=== PATIENT | female | born 1980 | race Caucasian/White ===

== ENCOUNTER 2016-10-21 12:52 | Inpatient (IN) | payer SELFPAY ==
[~2016-10-21] VITALS: Ht 185.4 cm; Wt 109.3 kg
[2016-10-21] VITALS (14 sets, daily range): BP systolic 102–145; BP diastolic 64–89
[2016-10-21] MEDS ORDERED: MONT10TA6 PO (13:16)
[2016-10-21] MEDS ORDERED: HYDR-2666 PO (13:16)
[2016-10-21] MEDS ORDERED: GUAI600T38 PO (13:16)
[2016-10-21] MEDS ORDERED: ALBU2.5V13 NEB (13:16)
[2016-10-21] MEDS ORDERED: [UNRECOGNIZED DRUG - CODE] IJ (13:16)
[2016-10-21] MEDS ORDERED: NICO1PAT21 TP (13:16)
[2016-10-21] MEDS ORDERED: BUDE0.5A NEB (13:16)
--- NOTE | 2016-10-21 13:36 | RAD ---
Portable chest, 10/21/2016: History: Recurrent spontaneous pneumothorax Comparison is made to an outside study from 10/20/2016. There is a large left-sided pneumothorax which appears to have increased slightly in size since yesterday's exam. Again noted is a small amount of left-sided pleural fluid. There is persistent partial atelectasis of the left upper lobe. There is a mild [id number] shift of the heart and mediastinum. Patient rotation may be contributing to this appearance. There is moderate persistent atelectasis/infiltrate in the right lower lobe. There is a suggestion of a small amount of pleural fluid in the posterior costophrenic angle on the right. The heart size and pulmonary vascularity are within normal limits. IMPRESSION: 1. Increasing large left pneumothorax with a possible component of tension. 2. Moderate unchanged partial atelectasis of the left upper lobe. 3. Moderate right lower lobe atelectasis/infiltrate. 4. Small pleural effusions, left greater than right. Note: The findings were called to the patient's nurse in the ICU at 1:33 PM on 10/21/2016.
[2016-10-21 13:53] LABS: BASO # 0.1 x10^3/uL (0.0-0.2); BASO % 1 % (0-3); EOS % 2 % (0-3); HEMATOCRIT 42.3 % (36.0-47.0); LYMPH # 1.3 x10^3/uL (1.0-4.8); LYMPH % 13 % (24-48); MEAN CORPUSCULAR HEMOGLOBIN 28 pg (25-35); MEAN CORPUSCULAR HGB CONC 33 g/dL (31-37); MEAN CORPUSCULAR VOLUME 86 fL (79-100); MONO % 7 % (0-9); NEUT % 78 % (31-73); PLATELET COUNT 201 x10^3/uL (140-400); RED BLOOD COUNT 4.94 x10^6/uL (3.50-5.40); RED CELL DISTRIBUTION WIDTH 13.2 % (11.5-14.5); WHITE BLOOD COUNT 10.2 x10^3/uL (4.0-11.0)
[2016-10-21 13:56] LABS: INR 1.1 (0.8-1.1); PROTHROMBIN TIME PATIENT 13.4 SEC (11.7-14.0)
[2016-10-21 14:09] LABS: CALCIUM 8.8 mg/dL (8.5-10.1); CREATININE 0.8 mg/dL (0.6-1.0); GFR 80.3; POTASSIUM 4.2 mmol/L (3.5-5.1)
[2016-10-21 14:14] LABS: ALBUMIN 2.8 g/dL (3.4-5.0); ALBUMIN/GLOBULIN RATIO 0.8 (1.0-1.7); TOTAL BILIRUBIN 0.4 mg/dL (0.2-1.0); TOTAL PROTEIN 6.5 g/dL (6.4-8.2)
--- NOTE | 2016-10-21 14:39 | PDOC2 ---
NEUROLOGY CONSULT Date of Admission Date of Admission Full Report Dictated DATE: 10/21/16 TIME: 14:37 Current Medications Current Medications Current Medications Budesonide (Pulmicort) 0.5 mg BID NEB ; Start 10/21/16 at 21:00 Guaifenesin (Mucinex) 600 mg BID PO ; Start 10/21/16 at 21:00 Acetaminophen/ Hydrocodone Bitart (Lortab 5/325) 1 tab PRN Q4HRS PRN PO PAIN; Start 10/21/16 at 14:30 Montelukast Sodium (Singulair) 10 mg HS PO ; Start 10/21/16 at 21:00 Nicotine (Nicoderm Cq 21mg) 1 patch DAILY TD ; Start 10/22/16 at 09:00 Albuterol Sulfate (Ventolin Neb Soln) 2.5 mg PRN Q2HRS PRN NEB SHORTNESS OF BREATH; Start 10/21/16 at 14:30 Hydromorphone HCl (Dilaudid) 1 mg PRN Q4HRS PRN IV PAIN; Start 10/21/16 at 14: 30 Active Scripts Active Reported NICODERM CQ 21mg (Nicotine) 1 Each Patch.td24 1 Patch TP DAILY Singulair Tablet (Montelukast Sodium) 10 Mg Tablet 10 Mg PO HS Hydromorphone 1 Mg/Ml Syringe (Hydromorphone Hcl) 1 Mg/1 Ml Disp.syrin 1 Mg IJ PRN Q2HRS PRN Hydrocodone-Apap 5-325 (Hydrocodone Bit/Acetaminophen) 1 Each Tablet 1 Tab PO PRN Q4HRS PRN Mucinex (Guaifenesin) 600 Mg Tablet.er 1 Tab PO BID Budesonide 0.5 Mg/2 Ml Ampul.neb 1 Vial NEB BID Albuterol Sulfate Conc Neb Soln (Albuterol Sulfate) 2.5 Mg/0.5 Ml Vial.neb 2.5 Mg NEB Allergies Allergies: Coded Allergies: Penicillins (Verified Allergy, Intermediate, 10/21/16) naproxen (Verified Allergy, Intermediate, 10/21/16) Labs Labs Laboratory Tests Test 10/21/16 13:35 White Blood Count 10.2x10^3/uL (4.0-11.0) Red Blood Count 4.94x10^6/uL (3.50-5.40) Hemoglobin 14.0g/dL (12.0-15.5) Hematocrit 42.3% (36.0-47.0) Mean Corpuscular Volume 86fL (79-100) Mean Corpuscular Hemoglobin 28pg (25-35) Mean Corpuscular Hemoglobin Concent 33g/dL (31-37) Red Cell Distribution Width 13.2% (11.5-14.5) Platelet Count 201x10^3/uL (140-400) Neutrophils (%) (Auto) 78% (31-73) Lymphocytes (%) (Auto) 13% (24-48) Monocytes (%) (Auto) 7% (0-9) Eosinophils (%) (Auto) 2% (0-3) Basophils (%) (Auto) 1% (0-3) Neutrophils # (Auto) 8.0x10^3uL (1.8-7.7) Lymphocytes # (Auto) 1.3x10^3/uL (1.0-4.8) Monocytes # (Auto) 0.7x10^3/uL (0.0-1.1) Eosinophils # (Auto) 0.2x10^3/uL (0.0-0.7) Basophils # (Auto) 0.1x10^3/uL (0.0-0.2) Prothrombin Time 13.4SEC (11.7-14.0) Prothromb Time International Ratio 1.1 (0.8-1.1) Activated Partial Thromboplast Time 32SEC (24-38) Sodium Level 142mmol/L (136-145) Potassium Level 4.2mmol/L (3.5-5.1) Chloride Level 105mmol/L (98-107) Carbon Dioxide Level 30mmol/L (21-32) Anion Gap 7 (6-14) Blood Urea Nitrogen 12mg/dL (7-20) Creatinine 0.8mg/dL (0.6-1.0) Estimated GFR (Cockcroft-Gault) 80.3 BUN/Creatinine Ratio 15 (6-20) Glucose Level 99mg/dL (70-99) Calcium Level 8.8mg/dL (8.5-10.1) Total Bilirubin 0.4mg/dL (0.2-1.0) Aspartate Amino Transf (AST/SGOT) 14U/L (15-37) Alanine Aminotransferase (ALT/SGPT) 25U/L (14-59) Alkaline Phosphatase 59U/L (46-116) Total Protein 6.5g/dL (6.4-8.2) Albumin 2.8g/dL (3.4-5.0) Albumin/Globulin Ratio 0.8 (1.0-1.7) Laboratory Tests Test 10/21/16 13:35 White Blood Count 10.2x10^3/uL (4.0-11.0) Red Blood Count 4.94x10^6/uL (3.50-5.40) Hemoglobin 14.0g/dL (12.0-15.5) Hematocrit 42.3% (36.0-47.0) Mean Corpuscular Volume 86fL (79-100) Mean Corpuscular Hemoglobin 28pg (25-35) Mean Corpuscular Hemoglobin Concent 33g/dL (31-37) Red Cell Distribution Width 13.2% (11.5-14.5) Platelet Count 201x10^3/uL (140-400) Neutrophils (%) (Auto) 78% (31-73) Lymphocytes (%) (Auto) 13% (24-48) Monocytes (%) (Auto) 7% (0-9) Eosinophils (%) (Auto) 2% (0-3) Basophils (%) (Auto) 1% (0-3) Neutrophils # (Auto) 8.0x10^3uL (1.8-7.7) Lymphocytes # (Auto) 1.3x10^3/uL (1.0-4.8) Monocytes # (Auto) 0.7x10^3/uL (0.0-1.1) Eosinophils # (Auto) 0.2x10^3/uL (0.0-0.7) Basophils # (Auto) 0.1x10^3/uL (0.0-0.2) Prothrombin Time 13.4SEC (11.7-14.0) Prothromb Time International Ratio 1.1 (0.8-1.1) Activated Partial Thromboplast Time 32SEC (24-38) Sodium Level 142mmol/L (136-145) Potassium Level 4.2mmol/L (3.5-5.1) Chloride Level 105mmol/L (98-107) Carbon Dioxide Level 30mmol/L (21-32) Anion Gap 7 (6-14) Blood Urea Nitrogen 12mg/dL (7-20) Creatinine 0.8mg/dL (0.6-1.0) Estimated GFR (Cockcroft-Gault) 80.3 BUN/Creatinine Ratio 15 (6-20) Glucose Level 99mg/dL (70-99) Calcium Level 8.8mg/dL (8.5-10.1) Total Bilirubin 0.4mg/dL (0.2-1.0) Aspartate Amino Transf (AST/SGOT) 14U/L (15-37) Alanine Aminotransferase (ALT/SGPT) 25U/L (14-59) Alkaline Phosphatase 59U/L (46-116) Total Protein 6.5g/dL (6.4-8.2) Albumin 2.8g/dL (3.4-5.0) Albumin/Globulin Ratio 0.8 (1.0-1.7) Assessment/Plan Assessment/Plan Sheela Rayo is a pleasant 36-year-old woman with a history of a seizure disorder. She had previously been seen by Dr. Sabillon with negative investigation. She had been placed on Keppra 500 mg twice per day. She reports she did have some breakthrough seizure but never contacted his office for dosage adjustment. She discontinued the medication sometime ago because she could not afford the cost. She plans on getting on Medicaid so we'll be able to afford the drug. I will restart Keppra 500 mg twice per day. If there are breakthrough seizure the dosage can be adjusted. She has a recurrent pneumothorax which may be under tension. This is being addressed either pulmonary physician. She has a number of psychiatric issues with posttraumatic stress disorder, attention deficit and hyperactivity disorder and generalized anxiety disorder. She will need to see a psychiatrist. TITA KIMBROUGH MD Oct 21, 2016 14:39
[2016-10-21] MEDS ORDERED: LIDOCAINE 1% / SOD BICARB 8.4% 20 ML VIAL. IJ ONE ×2 (14:47→15:30)
--- NOTE | 2016-10-21 15:14 | PDOC2 ---
Pulmonary Consultation Re: Pneumothorax HPI: Mrs Carbone, of no relation to myself; is a 36 yo female with a hx of asthma, and Tobacco dependency. She presented to OSH several days ago with complaints of dyspnea, and found to have a spontaneous left Pneumothorax. She denies fevers, chills, N, V, D, nor sick contacts. She notes that several days before her initial presentation she began having increased dyspnea, and cough. She was found to have a spontaneous pneumothorax, and chest tube was placed. She remained on suction for several days, and then CT was subsequently removed, which my understanding this was yesterday. She began having increased dyspnea, and on repeat imaging studies, she has recurrent Ptx. She was subsequently transferred to [facility] for further evaluation and care. She has a hx of tobacco dependency, and quit 5 days ago with her admission. hx of 1/2 ppd. She also has hx of seizure DO Problems: Medical History Seizure DO, Asthma, posttraumatic stress disorder, attention deficit and hyperactivity disorder and generalized anxiety disorder. Surgical History Non-contributory Medications Current Medications Budesonide (Pulmicort) 0.5 mg BID NEB ; Start 10/21/16 at 21:00 Guaifenesin (Mucinex) 600 mg BID PO ; Start 10/21/16 at 21:00 Acetaminophen/ Hydrocodone Bitart (Lortab 5/325) 1 tab PRN Q4HRS PRN PO PAIN; Start 10/21/16 at 14:30 Montelukast Sodium (Singulair) 10 mg HS PO ; Start 10/21/16 at 21:00 Nicotine (Nicoderm Cq 21mg) 1 patch DAILY TD ; Start 10/22/16 at 09:00 Albuterol Sulfate (Ventolin Neb Soln) 2.5 mg PRN Q2HRS PRN NEB SHORTNESS OF BREATH; Start 10/21/16 at 14:30 Hydromorphone HCl (Dilaudid) 1 mg PRN Q4HRS PRN IV PAIN; Start 10/21/16 at 14: 30 Lidocaine/Sodium Bicarbonate (Buffered Lidocaine 1%) 20 ml STK-MED ONCE IJ ; Start 10/21/16 at 14:47; Stop 10/21/16 at 14:48; Status DC Active Scripts Active Reported NICODERM CQ 21mg (Nicotine) 1 Each Patch.td24 1 Patch TP DAILY Singulair Tablet (Montelukast Sodium) 10 Mg Tablet 10 Mg PO HS Hydromorphone 1 Mg/Ml Syringe (Hydromorphone Hcl) 1 Mg/1 Ml Disp.syrin 1 Mg IJ PRN Q2HRS PRN Hydrocodone-Apap 5-325 (Hydrocodone Bit/Acetaminophen) 1 Each Tablet 1 Tab PO PRN Q4HRS PRN Mucinex (Guaifenesin) 600 Mg Tablet.er 1 Tab PO BID Budesonide 0.5 Mg/2 Ml Ampul.neb 1 Vial NEB BID Albuterol Sulfate Conc Neb Soln (Albuterol Sulfate) 2.5 Mg/0.5 Ml Vial.neb 2.5 Mg NEB Allergies Allergies Coded Allergies Type Severity Reaction Last Updated Verified Penicillins Allergy Intermediate 10/21/16 Yes naproxen Allergy Intermediate 10/21/16 Yes Social History , + tobacco hx 1/2 ppd, occassional ETOH, no recreational drugs Family History Non-contributory System Review Constitutional: Denies fever or chills. Eyes: Denies redness, irritation, erythema, drainage, or eye pain. HEENT: Denies nasal congestion or sore throat. Respiratory: Denies cough, shortness of breath, or difficulty breathing. Cardiovascular: Denies edema, or color change with feeding. GI: Denies abdominal pain, vomiting, bloody stools, diarrhea : Denies dysuria, normal amount of wet diapers, denies foul smelling urine. Musculoskeletal: Denies back pain or joint pain. Integument: Denies rash or skin lesions. Neurologic: Denies neurologic changes. Vital Signs Vital Signs Date Time Temp Pulse Resp B/P Pulse Ox O2 Delivery O2 Flow Rate FiO2 10/21/16 13:30 98.6 120 24 140/80 89 Nasal Cannula 3.0 98.6 Vital Signs Date Time Temp Pulse Resp B/P Pulse Ox O2 Delivery O2 Flow Rate FiO2 10/21/16 20:08 98.6 102 23 102/70 94 Nasal Cannula 4.0 98.6 Last Labs Laboratory Tests Test 10/21/16 13:35 White Blood Count 10.2x10^3/uL (4.0-11.0) Red Blood Count 4.94x10^6/uL (3.50-5.40) Hemoglobin 14.0g/dL (12.0-15.5) Hematocrit 42.3% (36.0-47.0) Mean Corpuscular Volume 86fL (79-100) Mean Corpuscular Hemoglobin 28pg (25-35) Mean Corpuscular Hemoglobin Concent 33g/dL (31-37) Red Cell Distribution Width 13.2% (11.5-14.5) Platelet Count 201x10^3/uL (140-400) Neutrophils (%) (Auto) 78% (31-73) Lymphocytes (%) (Auto) 13% (24-48) Monocytes (%) (Auto) 7% (0-9) Eosinophils (%) (Auto) 2% (0-3) Basophils (%) (Auto) 1% (0-3) Neutrophils # (Auto) 8.0x10^3uL (1.8-7.7) Lymphocytes # (Auto) 1.3x10^3/uL (1.0-4.8) Monocytes # (Auto) 0.7x10^3/uL (0.0-1.1) Eosinophils # (Auto) 0.2x10^3/uL (0.0-0.7) Basophils # (Auto) 0.1x10^3/uL (0.0-0.2) Prothrombin Time 13.4SEC (11.7-14.0) Prothromb Time International Ratio 1.1 (0.8-1.1) Activated Partial Thromboplast Time 32SEC (24-38) Sodium Level 142mmol/L (136-145) Potassium Level 4.2mmol/L (3.5-5.1) Chloride Level 105mmol/L (98-107) Carbon Dioxide Level 30mmol/L (21-32) Anion Gap 7 (6-14) Blood Urea Nitrogen 12mg/dL (7-20) Creatinine 0.8mg/dL (0.6-1.0) Estimated GFR (Cockcroft-Gault) 80.3 BUN/Creatinine Ratio 15 (6-20) Glucose Level 99mg/dL (70-99) Calcium Level 8.8mg/dL (8.5-10.1) Total Bilirubin 0.4mg/dL (0.2-1.0) Aspartate Amino Transf (AST/SGOT) 14U/L (15-37) Alanine Aminotransferase (ALT/SGPT) 25U/L (14-59) Alkaline Phosphatase 59U/L (46-116) Total Protein 6.5g/dL (6.4-8.2) Albumin 2.8g/dL (3.4-5.0) Albumin/Globulin Ratio 0.8 (1.0-1.7) Exam Comments Constitutional: Well developed, well nourished, no acute distress, non-toxic appearance. HENT: Normocephalic, atraumatic, bilateral external ears normal, oropharynx moist, no oral exudates, nose normal. Eyes: PERRLA, EOMI, conjunctiva normal, no discharge. Neck: Normal range of motion, no tenderness, supple, no stridor. Cardiovascular:Heart rate regular rhythm, no murmur Lungs & Thorax: Bilateral breath sounds clear to auscultation Abdomen: Bowel sounds normal, soft, no tenderness, no masses, no pulsatile masses. Skin: Warm, dry, no erythema, no rash. Extremities: No tenderness, no cyanosis, no clubbing, ROM intact, no edema. Neurologic: Alert and oriented X 3, normal motor function, normal sensory function, no focal deficits noted. Psychologic: Affect normal, judgement normal, mood normal. Chest X-rays 10/21/16 cxr : Comparison is made to the study of earlier in the day. A pigtail pleural drain has been placed on the left. The majority of the left pneumothorax has been evacuated. There is a small residual left apical pneumothorax. The midline shift has resolved with the heart now in normal position. There is moderate an ongoing atelectasis/infiltrate in the left upper lobe. There is moderate persistent right basilar atelectasis/infiltrate. Previously seen small pleural effusions are not clearly delineated on this AP portable exam. IMPRESSION: 1. Small residual left apical pneumothorax. 2. Moderate ongoing left upper lobe and right lower lobe atelectasis/infiltrate. Assessment 1. Acute Hypoxemic Respiratory Failure 2. Left Pneumothorax 3. Left Apical Infiltrate/Right LL infiltrate 4. Tobacco Dependency 5. Seizure DO 6. Anxiety, PTSD, Depression 7. Mild PCM Plan 1. Wean O2 as able 2. Left Chest tube placed by IR, continue Chest tube to suction - + AirLeak 3. Continue Bronchodilatory therapy 4. Pulmonary Infiltrate in QUITA, RLL - will continue Abx therapy 5. Likely residual Ptx, from when chest tube pulled rather than second ptx. 6. Seizure Tx per Neurology ARIELA CARBONE MD Oct 21, 2016 15:14
--- NOTE | 2016-10-21 15:28 | PDOC ---
IR PROGRESS NOTE Current Problem List Problem List Problems Medical Problems: (1) Emphysema of lung Status: Acute (2) Recurrent spontaneous pneumothorax Status: Acute Objective Objective Vital Signs Date Time Temp Pulse Resp B/P Pulse Ox O2 Delivery O2 Flow Rate FiO2 10/21/16 15:08 112 22 145/84 91 Nasal Cannula 5.0 Comment Review of Relevant I have reviewed the following items bry (where applicable) has been applied. Labs Laboratory Tests Test 10/21/16 13:35 White Blood Count 10.2x10^3/uL (4.0-11.0) Red Blood Count 4.94x10^6/uL (3.50-5.40) Hemoglobin 14.0g/dL (12.0-15.5) Hematocrit 42.3% (36.0-47.0) Mean Corpuscular Volume 86fL (79-100) Mean Corpuscular Hemoglobin 28pg (25-35) Mean Corpuscular Hemoglobin Concent 33g/dL (31-37) Red Cell Distribution Width 13.2% (11.5-14.5) Platelet Count 201x10^3/uL (140-400) Neutrophils (%) (Auto) 78% (31-73) Lymphocytes (%) (Auto) 13% (24-48) Monocytes (%) (Auto) 7% (0-9) Eosinophils (%) (Auto) 2% (0-3) Basophils (%) (Auto) 1% (0-3) Neutrophils # (Auto) 8.0x10^3uL (1.8-7.7) Lymphocytes # (Auto) 1.3x10^3/uL (1.0-4.8) Monocytes # (Auto) 0.7x10^3/uL (0.0-1.1) Eosinophils # (Auto) 0.2x10^3/uL (0.0-0.7) Basophils # (Auto) 0.1x10^3/uL (0.0-0.2) Prothrombin Time 13.4SEC (11.7-14.0) Prothromb Time International Ratio 1.1 (0.8-1.1) Activated Partial Thromboplast Time 32SEC (24-38) Sodium Level 142mmol/L (136-145) Potassium Level 4.2mmol/L (3.5-5.1) Chloride Level 105mmol/L (98-107) Carbon Dioxide Level 30mmol/L (21-32) Anion Gap 7 (6-14) Blood Urea Nitrogen 12mg/dL (7-20) Creatinine 0.8mg/dL (0.6-1.0) Estimated GFR (Cockcroft-Gault) 80.3 BUN/Creatinine Ratio 15 (6-20) Glucose Level 99mg/dL (70-99) Calcium Level 8.8mg/dL (8.5-10.1) Total Bilirubin 0.4mg/dL (0.2-1.0) Aspartate Amino Transf (AST/SGOT) 14U/L (15-37) Alanine Aminotransferase (ALT/SGPT) 25U/L (14-59) Alkaline Phosphatase 59U/L (46-116) Total Protein 6.5g/dL (6.4-8.2) Albumin 2.8g/dL (3.4-5.0) Albumin/Globulin Ratio 0.8 (1.0-1.7) Laboratory Tests Test 10/21/16 13:35 White Blood Count 10.2x10^3/uL (4.0-11.0) Red Blood Count 4.94x10^6/uL (3.50-5.40) Hemoglobin 14.0g/dL (12.0-15.5) Hematocrit 42.3% (36.0-47.0) Mean Corpuscular Volume 86fL (79-100) Mean Corpuscular Hemoglobin 28pg (25-35) Mean Corpuscular Hemoglobin Concent 33g/dL (31-37) Red Cell Distribution Width 13.2% (11.5-14.5) Platelet Count 201x10^3/uL (140-400) Neutrophils (%) (Auto) 78% (31-73) Lymphocytes (%) (Auto) 13% (24-48) Monocytes (%) (Auto) 7% (0-9) Eosinophils (%) (Auto) 2% (0-3) Basophils (%) (Auto) 1% (0-3) Neutrophils # (Auto) 8.0x10^3uL (1.8-7.7) Lymphocytes # (Auto) 1.3x10^3/uL (1.0-4.8) Monocytes # (Auto) 0.7x10^3/uL (0.0-1.1) Eosinophils # (Auto) 0.2x10^3/uL (0.0-0.7) Basophils # (Auto) 0.1x10^3/uL (0.0-0.2) Prothrombin Time 13.4SEC (11.7-14.0) Prothromb Time International Ratio 1.1 (0.8-1.1) Activated Partial Thromboplast Time 32SEC (24-38) Sodium Level 142mmol/L (136-145) Potassium Level 4.2mmol/L (3.5-5.1) Chloride Level 105mmol/L (98-107) Carbon Dioxide Level 30mmol/L (21-32) Anion Gap 7 (6-14) Blood Urea Nitrogen 12mg/dL (7-20) Creatinine 0.8mg/dL (0.6-1.0) Estimated GFR (Cockcroft-Gault) 80.3 BUN/Creatinine Ratio 15 (6-20) Glucose Level 99mg/dL (70-99) Calcium Level 8.8mg/dL (8.5-10.1) Total Bilirubin 0.4mg/dL (0.2-1.0) Aspartate Amino Transf (AST/SGOT) 14U/L (15-37) Alanine Aminotransferase (ALT/SGPT) 25U/L (14-59) Alkaline Phosphatase 59U/L (46-116) Total Protein 6.5g/dL (6.4-8.2) Albumin 2.8g/dL (3.4-5.0) Albumin/Globulin Ratio 0.8 (1.0-1.7) Medications Current Medications Budesonide (Pulmicort) 0.5 mg BID NEB ; Start 10/21/16 at 21:00 Guaifenesin (Mucinex) 600 mg BID PO ; Start 10/21/16 at 21:00 Acetaminophen/ Hydrocodone Bitart (Lortab 5/325) 1 tab PRN Q4HRS PRN PO PAIN; Start 10/21/16 at 14:30 Montelukast Sodium (Singulair) 10 mg HS PO ; Start 10/21/16 at 21:00 Nicotine (Nicoderm Cq 21mg) 1 patch DAILY TD ; Start 10/22/16 at 09:00 Albuterol Sulfate (Ventolin Neb Soln) 2.5 mg PRN Q2HRS PRN NEB SHORTNESS OF BREATH; Start 10/21/16 at 14:30 Hydromorphone HCl (Dilaudid) 1 mg PRN Q4HRS PRN IV PAIN; Start 10/21/16 at 14: 30 Lidocaine/Sodium Bicarbonate (Buffered Lidocaine 1%) 20 ml STK-MED ONCE IJ ; Start 10/21/16 at 14:47; Stop 10/21/16 at 14:48; Status DC Active Scripts Active Reported NICODERM CQ 21mg (Nicotine) 1 Each Patch.td24 1 Patch TP DAILY Singulair Tablet (Montelukast Sodium) 10 Mg Tablet 10 Mg PO HS Hydromorphone 1 Mg/Ml Syringe (Hydromorphone Hcl) 1 Mg/1 Ml Disp.syrin 1 Mg IJ PRN Q2HRS PRN Hydrocodone-Apap 5-325 (Hydrocodone Bit/Acetaminophen) 1 Each Tablet 1 Tab PO PRN Q4HRS PRN Mucinex (Guaifenesin) 600 Mg Tablet.er 1 Tab PO BID Budesonide 0.5 Mg/2 Ml Ampul.neb 1 Vial NEB BID Albuterol Sulfate Conc Neb Soln (Albuterol Sulfate) 2.5 Mg/0.5 Ml Vial.neb 2.5 Mg NEB Vitals/I & O Vital Sign - Last 24 Hours 10/21/16 15:08 Pulse 112 Resp 22 B/P 145/84 Pulse Ox 91 O2 Delivery Nasal Cannula O2 Flow Rate 5.0 Plan Plan 8 Fr pigtail thoracostomy placed for large left pneumothrax No complication Placed to -20 cm H20 AKOSUA SHAH MD Oct 21, 2016 15:28
--- NOTE | 2016-10-21 15:47 | RAD ---
CT-guided placement of left thoracostomy tube 10/21/2016 Indication: Left pneumothorax Comparison study: Chest radiograph earlier today Discussion: The risks and benefits of the procedure were discussed patient. Informed consent was obtained. A timeout procedure is performed. The left chest was prepped and draped using sterile barrier technique. CT imaging confirms large left pneumothorax. Once an appropriate site for skin. Then selective 1% lidocaine without epinephrine was administered to the skin and subcutaneous tissues for local anesthesia. Following this a 5 [place] sheathed U needle was advanced into the pleural space confirmed by aspiration of air. A guidewire was advanced into the pleural space over which an 8 [place] pigtail drain catheter was advanced into the pleural space. Air was aspirated to confirm placement. Imaging was performed to confirm placement. Catheter was secured in place. Sterile dressing including the resting dose was placed. Patient tolerate the procedure well and was returned to the ICU in stable condition. Anesthesia: Local anesthesia only Impression: Successful CT-guided placement of left thoracostomy tube.
[2016-10-21] MEDS: HYDROCODONE/APAP 5/325MG TABLET. PO PRN ×2 (15:55→20:36)
--- NOTE | 2016-10-21 16:34 | RAD ---
Portable chest, 10/21/2016: History: Follow-up pneumothorax after chest tube placement Comparison is made to the study of earlier in the day. A pigtail pleural drain has been placed on the left. The majority of the left pneumothorax has been evacuated. There is a small residual left apical pneumothorax. The midline shift has resolved with the heart now in normal position. There is moderate an ongoing atelectasis/infiltrate in the left upper lobe. There is moderate persistent right basilar atelectasis/infiltrate. Previously seen small pleural effusions are not clearly delineated on this AP portable exam. IMPRESSION: 1. Small residual left apical pneumothorax. 2. Moderate ongoing left upper lobe and right lower lobe atelectasis/infiltrate.
[2016-10-21] MEDS: HYDROMORPHONE 2 MG/ML VIAL. IV PRN ×2 (16:46→22:05)
[2016-10-21] MEDS: GUAIFENESIN ER 600 MG TABLET.ER PO SCH (20:36)
[2016-10-21] MEDS: MONTELUKAST SODIUM 10 MG TABLET. PO SCH (20:36)
[2016-10-21] MEDS: LEVOFLOXACIN 750 MG TABLET. PO SCH (22:02)
[2016-10-22] VITALS (21 sets, daily range): BP systolic 101–141; BP diastolic 58–93
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
[2016-10-22] MEDS: HYDROMORPHONE 2 MG/ML VIAL. IV PRN ×5 (01:47→20:56)
[2016-10-22 06:25] LABS: BASO # 0.2 x10^3/uL (0.0-0.2); BASO % 3 % (0-3); EOS % 4 % (0-3); HEMATOCRIT 41.7 % (36.0-47.0); HEMOGLOBIN 13.9 g/dL (12.0-15.5); LYMPH # 1.3 x10^3/uL (1.0-4.8); LYMPH % 16 % (24-48); MEAN CORPUSCULAR HEMOGLOBIN 28 pg (25-35); MEAN CORPUSCULAR HGB CONC 33 g/dL (31-37); MEAN CORPUSCULAR VOLUME 84 fL (79-100); MONO % 7 % (0-9); NEUT % 71 % (31-73); PLATELET COUNT 192 x10^3/uL (140-400); RED BLOOD COUNT 4.95 x10^6/uL (3.50-5.40); RED CELL DISTRIBUTION WIDTH 13.3 % (11.5-14.5); WHITE BLOOD COUNT 8.3 x10^3/uL (4.0-11.0)
[2016-10-22 07:13] LABS: ALBUMIN 2.5 g/dL (3.4-5.0); ALBUMIN/GLOBULIN RATIO 0.6 (1.0-1.7); CALCIUM 8.6 mg/dL (8.5-10.1); CREATININE 0.8 mg/dL (0.6-1.0); GFR 80.3; POTASSIUM 4.4 mmol/L (3.5-5.1); TOTAL BILIRUBIN 0.5 mg/dL (0.2-1.0); TOTAL PROTEIN 6.4 g/dL (6.4-8.2)
--- NOTE | 2016-10-22 07:32 | RAD ---
Portable chest, 10/22/2016: History: Respiratory distress Comparison is made to yesterday afternoon's exam. The pigtail pleural drain remains in place on the left. There is a small left pneumothorax which has increased slightly in size. There is moderate ongoing atelectasis/infiltrate in the left upper lobe and right base, unchanged. There is a small amount residual left-sided pleural fluid. The heart size and pulmonary vascularity are normal. IMPRESSION: 1. The small left pneumothorax appears to have increased slightly in size since yesterday's study. 2. Moderate ongoing atelectasis/infiltrate in the left upper lobe and right lung base.
[2016-10-22] MEDS: HYDROCODONE/APAP 5/325MG TABLET. PO PRN ×2 (08:14→18:35)
[2016-10-22] MEDS: GUAIFENESIN ER 600 MG TABLET.ER PO SCH ×2 (08:46→21:16)
[2016-10-22] MEDS: NICOTINE 21MG PATCH. TD SCH (09:00)
[2016-10-22] MEDS: BUDESONIDE 0.5 MG/2 ML NEBU NEB SCH ×2 (09:35→19:18)
--- NOTE | 2016-10-22 10:37 | RAD ---
Indication: Recurrent pneumothorax. Axial imaging through the chest was performed without intravenous contrast. Comparison is made with the CT chest from 1 day earlier. The small caliber chest tube on the left remains in place with the pigtail identified in the anterior left hemithorax. There has been significant reexpansion of the left lung when compared with yesterday's exam. There continues to be a small left pneumothorax. Airspace infiltrate in the left upper lobe posteriorly is noted. There are areas of consolidation and atelectasis in the left upper lobe as well as the left base. Right basilar atelectasis is also seen. There are bilateral pleural effusions which appear to layer dependently. No definite axillary lymphadenopathy is seen. No pericardial effusion is seen. No mediastinal or hilar lymphadenopathy is detected. Impression: Significant decrease in size of left pneumothorax when compared with exam one day earlier. There continues to be a small pneumothorax on the left. The zones of atelectasis in the left upper and left lower lobe persist. There are continued bilateral pleural effusions.
--- NOTE | 2016-10-22 11:07 | HP ---
ADMIT DATE: 10/22/2016 HISTORY OF PRESENT ILLNESS: The patient is a 36-year-old female patient, who was transferred from where she was admitted with a complaint of shortness of breath that started several days before admission. She was seen in the Emergency Room and was found to have large left-sided pneumothorax, for which a chest tube placed and was connected to Pleur-evac. After the lung had completely expanded, her chest tube was removed without any problem; however, repeat chest x-ray immediate did not show any pneumothorax. On the second day, she complained of shortness of breath and we did repeat another chest x-ray, which showed that she has recurrent pneumothorax, and therefore decision was made to transfer her to [facility] for placement of another chest tube and to consult the cardiothoracic surgeon for possible pleurodesis. PAST MEDICAL HISTORY: Significant for bronchial asthma with possible chronic bronchitis/COPD. She apparently is known to have epilepsy. Her last seizure was about 2 weeks prior to admission to [facility] and one about 6 months before that. She is known to have ADHD, posttraumatic stress disorder, as well as anxiety. She apparently was on Keppra that she cannot afford and she quit taking it on her own about a year ago and never contacted Dr. Peters, her neurologist. PAST SURGICAL HISTORY: Significant for cholecystectomy, D and C, and tubal ligation, and most recently chest tube placement twice. ALLERGIES: SHE IS ALLERGIC TO PENICILLIN AND IBUPROFEN. MEDICATIONS: She was transferred to this facility to continue on the following medications: Albuterol sulfate via nebulizer every ____ hours, Pulmicort 0.5 mg in 2 mL twice a day, guaifenesin 600 mg twice a day, hydrocodone/APAP 5/325 one tablet every 4 hours as needed, hydromorphone 1 mg intravenously every ____ hours as needed, Singulair 10 mg once a day, NicoDerm CQ 21 mg topical transdermal patch once a day. She was also on Keppra 500 mg twice a day, levothyroxine sodium 50 mcg once a day, Vyvanse 20 mg daily, and prazosin 1 mg at bedtime, and Pristiq 100 mg once a day. FAMILY HISTORY: She has 6 brothers and 2 sisters. Her oldest brother because of diabetic complication. Her sister has epilepsy. SOCIAL HISTORY: She is . She is 4, para 5. The oldest son has diabetes, on insulin. She has 3 daughters, relatively healthy. One son at the age of 19 by an overdose. She smokes 6 cigarettes a day. She does not drink alcohol. She works 2 jobs. REVIEW OF SYSTEMS: The patient denied any blurring of vision, cataract, glaucoma or macular degeneration. Denied any earache, tinnitus, or sensorineural deafness. Denied any nosebleeds, stuffy nose, or postnasal drip. Denied any sore throat, sore tongue, toothache, hoarseness of voice, or difficulty swallowing. Denied any nausea, vomiting, diarrhea, or constipation. She denied any hematemesis, melena, or hematochezia. Denied any dysuria, frequency, or hematuria. Denied any chills, rigors, or fever. PHYSICAL EXAMINATION: GENERAL: When I saw her today, she looked well and was clearly in no apparent respiratory distress. VITAL SIGNS: Her heart rate was 94, blood pressure 141/93, temperature was 98.5, respiratory rate was 16, and oxygen saturation was 92% on 3 liters of oxygen. HEAD, EYES, NOSE, THROAT: Normocephalic, atraumatic. NECK: Supple. HEART: Showed normal first and second heart sounds. No gallop, rub, or murmur. CHEST: Shows central trachea, equal bilateral chest expansion, air entry, vesicular sounds, with bilateral scattered rhonchi. She has chest tube suction on the left side. ABDOMEN: Distended, soft, nontender. No guarding or rigidity. No organomegaly. Hernial orifices intact. Bowel sounds normal. NEUROLOGIC: She was awake, alert, responding appropriately. Cranial nerves intact. EXTREMITIES: She moves extremities without difficulty. She ambulates without assistance or assistive devices. LABORATORY DATA: Showed that her white cell count is 8300, hemoglobin 14, hematocrit 42, MCV 84, and platelet count of 192,000, with normal manual differential. Her chemistry showed a serum sodium 139, potassium 4.4, chloride 103, bicarbonate 29, anion gap 7, BUN 12, creatinine 0.8, estimated GFR was 80 mL per minute. Her glucose was 94, calcium was 8.6. Total bilirubin, AST, ALT, alkaline phosphatase were normal. Total protein was 6.4, albumin 2.5. Her prothrombin time was 13.4, INR 1.1, aPTT was 32. ASSESSMENT AND PLAN: She apparently had had a chest tube placed by interventional radiologist successfully. She was seen in consultation by the solutions developer as well as the neurologist. I did consult also the cardiothoracic surgeon to see whether she is a candidate for pleurodesis given that she has multiple emphysematous bullae and has had recurrent pneumothorax. We will continue obviously with the chest tube. Continue with all her medications including bronchodilators. Follow her labs closely and we will start obviously physical and occupational therapy. NICHOLAS DEJESUS MD DR: KIN/analy JOB#: [id number] / [id number]
--- NOTE | 2016-10-22 11:35 | PDOC ---
PULMONARY PROGRESS NOTES Subjective no soa Vitals Vital Signs Date Time Temp Pulse Resp B/P Pulse Ox O2 Delivery O2 Flow Rate FiO2 10/22/16 09:35 92 Nasal Cannula 3.0 10/22/16 09:04 16 10/22/16 07:00 94 141/93 10/22/16 05:20 98.5 98.5 General: Alert, No acute distress Lungs: Clear Cardiovascular: S1 Abdomen: Soft Neuro Exam: Alert Extremities: No Edema Skin: Warm Labs Laboratory Tests Test 10/21/16 13:35 10/22/16 05:17 White Blood Count 10.2x10^3/uL (4.0-11.0) 8.3x10^3/uL (4.0-11.0) Red Blood Count 4.94x10^6/uL (3.50-5.40) 4.95x10^6/uL (3.50-5.40) Hemoglobin 14.0g/dL (12.0-15.5) 13.9g/dL (12.0-15.5) Hematocrit 42.3% (36.0-47.0) 41.7% (36.0-47.0) Mean Corpuscular Volume 86fL (79-100) 84fL (79-100) Mean Corpuscular Hemoglobin 28pg (25-35) 28pg (25-35) Mean Corpuscular Hemoglobin Concent 33g/dL (31-37) 33g/dL (31-37) Red Cell Distribution Width 13.2% (11.5-14.5) 13.3% (11.5-14.5) Platelet Count 201x10^3/uL (140-400) 192x10^3/uL (140-400) Neutrophils (%) (Auto) 78% (31-73) 71% (31-73) Lymphocytes (%) (Auto) 13% (24-48) 16% (24-48) Monocytes (%) (Auto) 7% (0-9) 7% (0-9) Eosinophils (%) (Auto) 2% (0-3) 4% (0-3) Basophils (%) (Auto) 1% (0-3) 3% (0-3) Neutrophils # (Auto) 8.0x10^3uL (1.8-7.7) 5.9x10^3uL (1.8-7.7) Lymphocytes # (Auto) 1.3x10^3/uL (1.0-4.8) 1.3x10^3/uL (1.0-4.8) Monocytes # (Auto) 0.7x10^3/uL (0.0-1.1) 0.5x10^3/uL (0.0-1.1) Eosinophils # (Auto) 0.2x10^3/uL (0.0-0.7) 0.4x10^3/uL (0.0-0.7) Basophils # (Auto) 0.1x10^3/uL (0.0-0.2) 0.2x10^3/uL (0.0-0.2) Prothrombin Time 13.4SEC (11.7-14.0) Prothromb Time International Ratio 1.1 (0.8-1.1) Activated Partial Thromboplast Time 32SEC (24-38) Sodium Level 142mmol/L (136-145) 139mmol/L (136-145) Potassium Level 4.2mmol/L (3.5-5.1) 4.4mmol/L (3.5-5.1) Chloride Level 105mmol/L (98-107) 103mmol/L (98-107) Carbon Dioxide Level 30mmol/L (21-32) 29mmol/L (21-32) Anion Gap 7 (6-14) 7 (6-14) Blood Urea Nitrogen 12mg/dL (7-20) 12mg/dL (7-20) Creatinine 0.8mg/dL (0.6-1.0) 0.8mg/dL (0.6-1.0) Estimated GFR (Cockcroft-Gault) 80.3 80.3 BUN/Creatinine Ratio 15 (6-20) 15 (6-20) Glucose Level 99mg/dL (70-99) 94mg/dL (70-99) Calcium Level 8.8mg/dL (8.5-10.1) 8.6mg/dL (8.5-10.1) Total Bilirubin 0.4mg/dL (0.2-1.0) 0.5mg/dL (0.2-1.0) Aspartate Amino Transf (AST/SGOT) 14U/L (15-37) 18U/L (15-37) Alanine Aminotransferase (ALT/SGPT) 25U/L (14-59) 33U/L (14-59) Alkaline Phosphatase 59U/L (46-116) 64U/L (46-116) Total Protein 6.5g/dL (6.4-8.2) 6.4g/dL (6.4-8.2) Albumin 2.8g/dL (3.4-5.0) 2.5g/dL (3.4-5.0) Albumin/Globulin Ratio 0.8 (1.0-1.7) 0.6 (1.0-1.7) Laboratory Tests Test 10/21/16 13:35 10/22/16 05:17 White Blood Count 10.2x10^3/uL (4.0-11.0) 8.3x10^3/uL (4.0-11.0) Red Blood Count 4.94x10^6/uL (3.50-5.40) 4.95x10^6/uL (3.50-5.40) Hemoglobin 14.0g/dL (12.0-15.5) 13.9g/dL (12.0-15.5) Hematocrit 42.3% (36.0-47.0) 41.7% (36.0-47.0) Mean Corpuscular Volume 86fL (79-100) 84fL (79-100) Mean Corpuscular Hemoglobin 28pg (25-35) 28pg (25-35) Mean Corpuscular Hemoglobin Concent 33g/dL (31-37) 33g/dL (31-37) Red Cell Distribution Width 13.2% (11.5-14.5) 13.3% (11.5-14.5) Platelet Count 201x10^3/uL (140-400) 192x10^3/uL (140-400) Neutrophils (%) (Auto) 78% (31-73) 71% (31-73) Lymphocytes (%) (Auto) 13% (24-48) 16% (24-48) Monocytes (%) (Auto) 7% (0-9) 7% (0-9) Eosinophils (%) (Auto) 2% (0-3) 4% (0-3) Basophils (%) (Auto) 1% (0-3) 3% (0-3) Neutrophils # (Auto) 8.0x10^3uL (1.8-7.7) 5.9x10^3uL (1.8-7.7) Lymphocytes # (Auto) 1.3x10^3/uL (1.0-4.8) 1.3x10^3/uL (1.0-4.8) Monocytes # (Auto) 0.7x10^3/uL (0.0-1.1) 0.5x10^3/uL (0.0-1.1) Eosinophils # (Auto) 0.2x10^3/uL (0.0-0.7) 0.4x10^3/uL (0.0-0.7) Basophils # (Auto) 0.1x10^3/uL (0.0-0.2) 0.2x10^3/uL (0.0-0.2) Prothrombin Time 13.4SEC (11.7-14.0) Prothromb Time International Ratio 1.1 (0.8-1.1) Activated Partial Thromboplast Time 32SEC (24-38) Sodium Level 142mmol/L (136-145) 139mmol/L (136-145) Potassium Level 4.2mmol/L (3.5-5.1) 4.4mmol/L (3.5-5.1) Chloride Level 105mmol/L (98-107) 103mmol/L (98-107) Carbon Dioxide Level 30mmol/L (21-32) 29mmol/L (21-32) Anion Gap 7 (6-14) 7 (6-14) Blood Urea Nitrogen 12mg/dL (7-20) 12mg/dL (7-20) Creatinine 0.8mg/dL (0.6-1.0) 0.8mg/dL (0.6-1.0) Estimated GFR (Cockcroft-Gault) 80.3 80.3 BUN/Creatinine Ratio 15 (6-20) 15 (6-20) Glucose Level 99mg/dL (70-99) 94mg/dL (70-99) Calcium Level 8.8mg/dL (8.5-10.1) 8.6mg/dL (8.5-10.1) Total Bilirubin 0.4mg/dL (0.2-1.0) 0.5mg/dL (0.2-1.0) Aspartate Amino Transf (AST/SGOT) 14U/L (15-37) 18U/L (15-37) Alanine Aminotransferase (ALT/SGPT) 25U/L (14-59) 33U/L (14-59) Alkaline Phosphatase 59U/L (46-116) 64U/L (46-116) Total Protein 6.5g/dL (6.4-8.2) 6.4g/dL (6.4-8.2) Albumin 2.8g/dL (3.4-5.0) 2.5g/dL (3.4-5.0) Albumin/Globulin Ratio 0.8 (1.0-1.7) 0.6 (1.0-1.7) Medications Active Scripts Medications Dose Route/Sig Days Date Category NICODERM CQ 21mg (Nicotine) 1 Each Patch.td24 1 Patch TP DAILY 10/21/16 Reported Singulair Tablet (Montelukast Sodium) 10 Mg Tablet 10 Mg PO HS 10/21/16 Reported Hydromorphone 1 Mg/Ml Syringe (Hydromorphone Hcl) 1 Mg/1 Ml Disp.syrin 1 Mg IJ PRN Q2HRS PRN 10/21/16 Reported Hydrocodone-Apap 5-325 (Hydrocodone Bit/Acetaminophen) 1 Each Tablet 1 Tab PO PRN Q4HRS PRN 10/21/16 Reported Mucinex (Guaifenesin) 600 Mg Tablet.er 1 Tab PO BID 10/21/16 Reported Budesonide 0.5 Mg/2 Ml Ampul.neb 1 Vial NEB BID 10/21/16 Reported Albuterol Sulfate Conc Neb Soln (Albuterol Sulfate) 2.5 Mg/0.5 Ml Vial.neb 2.5 Mg NEB 10/21/16 Reported Impression . 1. Acute Hypoxemic Respiratory Failure due to PTX 2. Left Pneumothorax 3. Left Apical Infiltrate/Right LL infiltrate 4. Tobacco Dependency 5. Seizure DO 6. Anxiety, PTSD, Depression 7. Mild PCM Plan . 1. d/w Dr Mcghee. She has significant blebs upper lobes and is at risk for recurrent PTX. best option is Left VATS/ bullectomy/ mechanical abrasion. 2. Left Chest tube to suction - + AirLeak 3. Continue Bronchodilatory therapy 4. Pulmonary Infiltrate in QUITA, RLL - will continue Abx therapy 5. Likely residual Ptx, from when chest tube pulled rather than second ptx. 6. Seizure Tx per Neurology RIN MARTEL MD Oct 22, 2016 11:35
--- NOTE | 2016-10-22 12:01 | PDOC ---
SURGICAL PROGRESS NOTE Subjective Transferred from [facility] pneumo, IR placed CT last night feeling better, tired Vital Signs Vital Signs Date Time Temp Pulse Resp B/P Pulse Ox O2 Delivery O2 Flow Rate FiO2 10/22/16 09:35 92 Nasal Cannula 3.0 10/22/16 09:04 16 10/22/16 07:00 94 141/93 10/22/16 05:20 98.5 98.5 I&O Intake and Output 10/22/16 07:00 Intake Total 1650 ml Output Total 2610 ml Balance -960 ml Intake Oral 1650 ml Output Urine Total 2600 ml Chest Tube Drainage Total 10 ml General: Alert, Oriented X3, Cooperative, No acute distress Lungs: Other (CT in place) Labs Laboratory Tests Test 10/21/16 13:35 10/22/16 05:17 White Blood Count 10.2x10^3/uL (4.0-11.0) 8.3x10^3/uL (4.0-11.0) Red Blood Count 4.94x10^6/uL (3.50-5.40) 4.95x10^6/uL (3.50-5.40) Hemoglobin 14.0g/dL (12.0-15.5) 13.9g/dL (12.0-15.5) Hematocrit 42.3% (36.0-47.0) 41.7% (36.0-47.0) Mean Corpuscular Volume 86fL (79-100) 84fL (79-100) Mean Corpuscular Hemoglobin 28pg (25-35) 28pg (25-35) Mean Corpuscular Hemoglobin Concent 33g/dL (31-37) 33g/dL (31-37) Red Cell Distribution Width 13.2% (11.5-14.5) 13.3% (11.5-14.5) Platelet Count 201x10^3/uL (140-400) 192x10^3/uL (140-400) Neutrophils (%) (Auto) 78% (31-73) 71% (31-73) Lymphocytes (%) (Auto) 13% (24-48) 16% (24-48) Monocytes (%) (Auto) 7% (0-9) 7% (0-9) Eosinophils (%) (Auto) 2% (0-3) 4% (0-3) Basophils (%) (Auto) 1% (0-3) 3% (0-3) Neutrophils # (Auto) 8.0x10^3uL (1.8-7.7) 5.9x10^3uL (1.8-7.7) Lymphocytes # (Auto) 1.3x10^3/uL (1.0-4.8) 1.3x10^3/uL (1.0-4.8) Monocytes # (Auto) 0.7x10^3/uL (0.0-1.1) 0.5x10^3/uL (0.0-1.1) Eosinophils # (Auto) 0.2x10^3/uL (0.0-0.7) 0.4x10^3/uL (0.0-0.7) Basophils # (Auto) 0.1x10^3/uL (0.0-0.2) 0.2x10^3/uL (0.0-0.2) Prothrombin Time 13.4SEC (11.7-14.0) Prothromb Time International Ratio 1.1 (0.8-1.1) Activated Partial Thromboplast Time 32SEC (24-38) Sodium Level 142mmol/L (136-145) 139mmol/L (136-145) Potassium Level 4.2mmol/L (3.5-5.1) 4.4mmol/L (3.5-5.1) Chloride Level 105mmol/L (98-107) 103mmol/L (98-107) Carbon Dioxide Level 30mmol/L (21-32) 29mmol/L (21-32) Anion Gap 7 (6-14) 7 (6-14) Blood Urea Nitrogen 12mg/dL (7-20) 12mg/dL (7-20) Creatinine 0.8mg/dL (0.6-1.0) 0.8mg/dL (0.6-1.0) Estimated GFR (Cockcroft-Gault) 80.3 80.3 BUN/Creatinine Ratio 15 (6-20) 15 (6-20) Glucose Level 99mg/dL (70-99) 94mg/dL (70-99) Calcium Level 8.8mg/dL (8.5-10.1) 8.6mg/dL (8.5-10.1) Total Bilirubin 0.4mg/dL (0.2-1.0) 0.5mg/dL (0.2-1.0) Aspartate Amino Transf (AST/SGOT) 14U/L (15-37) 18U/L (15-37) Alanine Aminotransferase (ALT/SGPT) 25U/L (14-59) 33U/L (14-59) Alkaline Phosphatase 59U/L (46-116) 64U/L (46-116) Total Protein 6.5g/dL (6.4-8.2) 6.4g/dL (6.4-8.2) Albumin 2.8g/dL (3.4-5.0) 2.5g/dL (3.4-5.0) Albumin/Globulin Ratio 0.8 (1.0-1.7) 0.6 (1.0-1.7) Laboratory Tests Test 10/21/16 13:35 10/22/16 05:17 White Blood Count 10.2x10^3/uL (4.0-11.0) 8.3x10^3/uL (4.0-11.0) Red Blood Count 4.94x10^6/uL (3.50-5.40) 4.95x10^6/uL (3.50-5.40) Hemoglobin 14.0g/dL (12.0-15.5) 13.9g/dL (12.0-15.5) Hematocrit 42.3% (36.0-47.0) 41.7% (36.0-47.0) Mean Corpuscular Volume 86fL (79-100) 84fL (79-100) Mean Corpuscular Hemoglobin 28pg (25-35) 28pg (25-35) Mean Corpuscular Hemoglobin Concent 33g/dL (31-37) 33g/dL (31-37) Red Cell Distribution Width 13.2% (11.5-14.5) 13.3% (11.5-14.5) Platelet Count 201x10^3/uL (140-400) 192x10^3/uL (140-400) Neutrophils (%) (Auto) 78% (31-73) 71% (31-73) Lymphocytes (%) (Auto) 13% (24-48) 16% (24-48) Monocytes (%) (Auto) 7% (0-9) 7% (0-9) Eosinophils (%) (Auto) 2% (0-3) 4% (0-3) Basophils (%) (Auto) 1% (0-3) 3% (0-3) Neutrophils # (Auto) 8.0x10^3uL (1.8-7.7) 5.9x10^3uL (1.8-7.7) Lymphocytes # (Auto) 1.3x10^3/uL (1.0-4.8) 1.3x10^3/uL (1.0-4.8) Monocytes # (Auto) 0.7x10^3/uL (0.0-1.1) 0.5x10^3/uL (0.0-1.1) Eosinophils # (Auto) 0.2x10^3/uL (0.0-0.7) 0.4x10^3/uL (0.0-0.7) Basophils # (Auto) 0.1x10^3/uL (0.0-0.2) 0.2x10^3/uL (0.0-0.2) Prothrombin Time 13.4SEC (11.7-14.0) Prothromb Time International Ratio 1.1 (0.8-1.1) Activated Partial Thromboplast Time 32SEC (24-38) Sodium Level 142mmol/L (136-145) 139mmol/L (136-145) Potassium Level 4.2mmol/L (3.5-5.1) 4.4mmol/L (3.5-5.1) Chloride Level 105mmol/L (98-107) 103mmol/L (98-107) Carbon Dioxide Level 30mmol/L (21-32) 29mmol/L (21-32) Anion Gap 7 (6-14) 7 (6-14) Blood Urea Nitrogen 12mg/dL (7-20) 12mg/dL (7-20) Creatinine 0.8mg/dL (0.6-1.0) 0.8mg/dL (0.6-1.0) Estimated GFR (Cockcroft-Gault) 80.3 80.3 BUN/Creatinine Ratio 15 (6-20) 15 (6-20) Glucose Level 99mg/dL (70-99) 94mg/dL (70-99) Calcium Level 8.8mg/dL (8.5-10.1) 8.6mg/dL (8.5-10.1) Total Bilirubin 0.4mg/dL (0.2-1.0) 0.5mg/dL (0.2-1.0) Aspartate Amino Transf (AST/SGOT) 14U/L (15-37) 18U/L (15-37) Alanine Aminotransferase (ALT/SGPT) 25U/L (14-59) 33U/L (14-59) Alkaline Phosphatase 59U/L (46-116) 64U/L (46-116) Total Protein 6.5g/dL (6.4-8.2) 6.4g/dL (6.4-8.2) Albumin 2.8g/dL (3.4-5.0) 2.5g/dL (3.4-5.0) Albumin/Globulin Ratio 0.8 (1.0-1.7) 0.6 (1.0-1.7) Problem List Problems Medical Problems: (1) Emphysema of lung Status: Acute (2) Recurrent spontaneous pneumothorax Status: Acute Assessment/Plan IR placed CT, pulmonary following no gen surg recs Problems: PHILLIP DAHL APRN Oct 22, 2016 12:01
--- NOTE | 2016-10-22 13:53 | PDOC ---
PROGRESS NOTES Assessment Assessment IMPRESSION: Seizure Pneumothorax. Bilateral pleural effusion. Smoking, quit 6 days ago ADHD Anxiety RECOMMENDATIONS/PLAN: EEG May resume Keppra after EEG Treat medical diseases. PAST MEDICAL AND SURGICAL HISTORY: Please see H&P ALLERGY: PCN Naproxen MEDICATIONS: Refer to MAR REVIEW OF SYSTEMS: Constitutional: No cachexia. Head: No recent traumatic brain or head injury. Skin: No edema, or rash. Ear: No infection, tinnitus. Eyes: No vision loss, or diplopia. Nose: No bleeding or purulent discharges. Hearing: No hearing decrease. Neck: No recent injury. Breast: No history of cancer, masses, or discharges. Cardiac: No MD, arrhythmia Pulmonary: Smoking GI: No GI Ulcer, GI bleeding Urinary/genital: UTI. Endocrine: No cousin face, craniofacial dysmorphism, polydactyly. Skeletomuscular: No muscular atrophy, deformity. Neurological: see HP. Psychiatric: Denies drug use/abuse. Otherwise, not [id number] review of systems. PHYSICAL EXAMINATION: General appearance in subacute distress. HEENT: Normocephalic and nontraumatic. Eyes, nose, ears, and throat are unremarkable. Hearing decrease. Neck is supple. No lymphadenopathy. No bruits are heard over the carotid artery. No Crepitus. Cardiovascular: S1, S2, regular rate and rhythm. Pulmonary: decreased to auscultation bilaterally. Abdomen: Bowel sounds are positive. Abdomen is soft, nontender, and nondistended. Extremities: No rash, lesions, or edema. No restriction of range of motion NEUROLOGICAL EXAMINATION: Alert. Oriented to time, place and person. PERRL. EOMI. CN: no focal findings. Muscle tone: within normal. Muscle strength: 5- DTR: 2 Plantar reflex: Flexor response bilaterally Gait: not examined in bed. Sensory exam: no abnormal findings. No cerebellar signs elicited. F-T-N test accurate. Objective Objective Vital Signs Date Time Temp Pulse Resp B/P Pulse Ox O2 Delivery O2 Flow Rate FiO2 10/22/16 09:35 92 Nasal Cannula 3.0 10/22/16 09:04 16 10/22/16 07:00 94 141/93 10/22/16 05:20 98.5 98.5 Intake and Output 10/22/16 07:00 Intake Total 1650 ml Output Total 2610 ml Balance -960 ml Intake Oral 1650 ml Output Urine Total 2600 ml Chest Tube Drainage Total 10 ml Vitals Signs Vitals VS - Last 72 Hours, by Label Date Time Temp Pulse Resp B/P Pulse Ox O2 Delivery O2 Flow Rate FiO2 10/22/16 09:35 92 Nasal Cannula 3.0 10/22/16 09:04 16 Nasal Cannula 3.0 10/22/16 08:14 16 92 Nasal Cannula 5.0 10/22/16 08:00 Nasal Cannula 4.0 10/22/16 07:00 94 141/93 94 Nasal Cannula 5.0 10/22/16 06:17 101 126/75 92 Nasal Cannula 4.0 10/22/16 06:12 93 Nasal Cannula 4.0 10/22/16 05:31 93 Nasal Cannula 4.0 10/22/16 05:20 98.5 93 121/80 93 Nasal Cannula 4.0 98.5 10/22/16 04:17 90 20 127/80 95 NonRebreather Mask 4.0 10/22/16 04:09 Nasal Cannula 4.0 10/22/16 03:30 93 20 127/81 96 NonRebreather Mask 4.0 10/22/16 02:15 98.5 93 20 139/91 94 NonRebreather Mask 4.0 98.5 10/22/16 01:47 97 Nasal Cannula 4.0 10/22/16 01:16 98.6 93 20 128/76 97 NonRebreather Mask 4.0 98.6 10/22/16 00:14 98.5 91 20 119/73 95 Nasal Cannula 4.0 98.5 10/22/16 00:11 Nasal Cannula 4.0 10/21/16 23:09 98.5 96 22 125/72 95 NonRebreather Mask 4.0 98.5 10/21/16 22:24 99 22 139/79 95 NonRebreather Mask 4.0 10/21/16 22:05 94 Nasal Cannula 4.0 10/21/16 21:53 94 Nasal Cannula 4.0 10/21/16 21:13 103 22 111/77 94 NonRebreather Mask 4.0 10/21/16 20:36 94 Nasal Cannula 4.0 10/21/16 20:08 98.6 102 23 102/70 94 Nasal Cannula 4.0 98.6 10/21/16 20:00 Nasal Cannula 4.0 10/21/16 19:29 112 113/64 94 Nasal Cannula 4.0 10/21/16 18:00 110 22 115/76 92 Nasal Cannula 10/21/16 17:00 110 130/80 Nasal Cannula 10/21/16 16:46 20 Nasal Cannula 4.0 10/21/16 16:30 110 24 139/81 Nasal Cannula 10/21/16 16:23 94 Nasal Cannula 5.0 10/21/16 16:00 Nasal Cannula 4.0 10/21/16 16:00 110 24 120/89 91 Nasal Cannula 4.0 10/21/16 15:55 20 Nasal Cannula 4.0 10/21/16 15:30 110 24 144/89 Nasal Cannula 10/21/16 15:27 101 22 144/89 95 Nasal Cannula 5.0 10/21/16 15:08 112 22 145/84 91 Nasal Cannula 5.0 10/21/16 15:00 120 24 140/80 Nasal Cannula 10/21/16 13:30 98.6 120 24 140/80 89 Nasal Cannula 3.0 98.6 Laboratory Laboratory Laboratory Tests Test 10/22/16 05:17 White Blood Count 8.3x10^3/uL (4.0-11.0) Red Blood Count 4.95x10^6/uL (3.50-5.40) Hemoglobin 13.9g/dL (12.0-15.5) Hematocrit 41.7% (36.0-47.0) Mean Corpuscular Volume 84fL (79-100) Mean Corpuscular Hemoglobin 28pg (25-35) Mean Corpuscular Hemoglobin Concent 33g/dL (31-37) Red Cell Distribution Width 13.3% (11.5-14.5) Platelet Count 192x10^3/uL (140-400) Neutrophils (%) (Auto) 71% (31-73) Lymphocytes (%) (Auto) 16% (24-48) Monocytes (%) (Auto) 7% (0-9) Eosinophils (%) (Auto) 4% (0-3) Basophils (%) (Auto) 3% (0-3) Neutrophils # (Auto) 5.9x10^3uL (1.8-7.7) Lymphocytes # (Auto) 1.3x10^3/uL (1.0-4.8) Monocytes # (Auto) 0.5x10^3/uL (0.0-1.1) Eosinophils # (Auto) 0.4x10^3/uL (0.0-0.7) Basophils # (Auto) 0.2x10^3/uL (0.0-0.2) Sodium Level 139mmol/L (136-145) Potassium Level 4.4mmol/L (3.5-5.1) Chloride Level 103mmol/L (98-107) Carbon Dioxide Level 29mmol/L (21-32) Anion Gap 7 (6-14) Blood Urea Nitrogen 12mg/dL (7-20) Creatinine 0.8mg/dL (0.6-1.0) Estimated GFR (Cockcroft-Gault) 80.3 BUN/Creatinine Ratio 15 (6-20) Glucose Level 94mg/dL (70-99) Calcium Level 8.6mg/dL (8.5-10.1) Total Bilirubin 0.5mg/dL (0.2-1.0) Aspartate Amino Transf (AST/SGOT) 18U/L (15-37) Alanine Aminotransferase (ALT/SGPT) 33U/L (14-59) Alkaline Phosphatase 64U/L (46-116) Total Protein 6.4g/dL (6.4-8.2) Albumin 2.5g/dL (3.4-5.0) Albumin/Globulin Ratio 0.6 (1.0-1.7) Medication Medications Current Medications Acetaminophen/ Hydrocodone Bitart (Lortab 5/325) 1 tab PRN Q4HRS PRN PO PAIN Last administered on 10/22/16 08:14; Start 10/21/16 at 14:30 Albuterol Sulfate (Ventolin Neb Soln) 2.5 mg PRN Q2HRS PRN NEB SHORTNESS OF BREATH; Start 10/21/16 at 14:30 Budesonide (Pulmicort) 0.5 mg RTBID NEB Last administered on 10/22/16 09:35; Start 10/21/16 at 16:30 Desvenlafaxine Succinate (Pristiq Er) 100 mg DAILY PO ; Start 10/22/16 at 11:00 Guaifenesin (Mucinex) 600 mg BID PO Last administered on 1/23/17at 08:46; Start 10/21/16 at 21:00 Hydromorphone HCl (Dilaudid) 1 mg PRN Q4HRS PRN IV PAIN Last administered on 09:04; Start 10/21/16 at 14:30 Levofloxacin (Levaquin) 750 mg Q24H PO Last administered on 10/21/16 22:02; Start 10/21/16 at 21:00 Levothyroxine Sodium (Synthroid) 50 mcg DAILY07 PO ; Start 10/22/16 at 11:00 Lidocaine/Sodium Bicarbonate (Buffered Lidocaine 1%) 8 ml 1X ONCE IJ Last administered on 10/21/16 15:30; Start 10/21/16 at 15:30; Stop 10/21/16 at 15:36 ; Status DC Lidocaine/Sodium Bicarbonate (Buffered Lidocaine 1%) 20 ml STK-MED ONCE IJ ; Start 10/21/16 at 14:47; Stop 10/21/16 at 14:48; Status DC Montelukast Sodium (Singulair) 10 mg HS PO Last administered on 10/21/16 20:36 ; Start 10/21/16 at 21:00 Nicotine (Nicoderm Cq 21mg) 1 patch DAILY TD ; Start 10/22/16 at 09:00 Comment Review of Relevant I have reviewed the following items bry (where applicable) has been applied. ALIYAH MADRID MD Oct 22, 2016 13:53
--- NOTE | 2016-10-22 14:17 | PDOC2 ---
CONSULT Date of Consult Date of Consult DATE: 10/22/16 TIME: 14:09 Reason for Consult Reason for Consult: Persistent spontaneous left pneumothorax Referring Physician Referring Physician: Jasiel Anna MD Identification/Chief Complaint Chief Complaint Shortness of breath Source Source: Chart review, Patient History of Present Illness Reason for Visit: Ms Rayo, is a 36-year-old female with a 20 pack per year history of smoking, who presented a week ago at [facility] with shortness of breath and chest pain. She was found to have a spontaneous left pneumothorax after which a thoracostomy tube was placed. 3 days later the tube was removed but the patient subsequently developed a recurrent pneumothorax on that side. She was subsequently transferred to [facility] where a 10 Icelandic pigtail was placed with resolution of the pneumothorax. She has persistent small air leak. She currently denies any significant shortness of breath or chest pain. A CT of the chest demonstrated bilateral apical bullae. I was consulted for further management of her persistent spontaneous left pneumothorax. Past Medical History Cardiovascular: No pertinent hx Pulmonary: COPD CENTRAL NERVOUS SYSTEM: Seizure GI: No pertinent hx Heme/Onc: No pertinent hx Hepatobiliary: No pertinent hx Psych: No pertinent hx Rheumatologic: No pertinent hx Infectious disease: No pertinent hx ENT: No pertinent hx Renal/: No pertinent hx Endocrine: Hypothyroidism Past Surgical History Past Surgical History: Cholecystectomy, , Tubal Ligation Family History Family History: Diabetes, Drug Abuse, Other (Seizure) Social History # pack years (20) ALCOHOL: none Drugs: None Lives: Friends Domestic Violence: Neg Current Problem List Problem List Problems Medical Problems: (1) Emphysema of lung Status: Acute (2) Recurrent spontaneous pneumothorax Status: Acute Current Medications Current Medications Current Medications Budesonide (Pulmicort) 0.5 mg RTBID NEB Last administered on 10/22/16 09:35; Start 10/21/16 at 16:30 Guaifenesin (Mucinex) 600 mg BID PO Last administered on 10/22/16 08:46; Start 10/21/16 at 21:00 Acetaminophen/ Hydrocodone Bitart (Lortab 5/325) 1 tab PRN Q4HRS PRN PO PAIN Last administered on 10/22/16 08:14; Start 10/21/16 at 14:30 Montelukast Sodium (Singulair) 10 mg HS PO Last administered on 10/21/16 20:36 ; Start 10/21/16 at 21:00 Nicotine (Nicoderm Cq 21mg) 1 patch DAILY TD ; Start 10/22/16 at 09:00 Albuterol Sulfate (Ventolin Neb Soln) 2.5 mg PRN Q2HRS PRN NEB SHORTNESS OF BREATH; Start 10/21/16 at 14:30 Hydromorphone HCl (Dilaudid) 1 mg PRN Q4HRS PRN IV PAIN Last administered on 09:04; Start 10/21/16 at 14:30 Lidocaine/Sodium Bicarbonate (Buffered Lidocaine 1%) 20 ml STK-MED ONCE IJ ; Start 10/21/16 at 14:47; Stop 10/21/16 at 14:48; Status DC Lidocaine/Sodium Bicarbonate (Buffered Lidocaine 1%) 8 ml 1X ONCE IJ Last administered on 10/21/16 15:30; Start 10/21/16 at 15:30; Stop 10/21/16 at 15:36 ; Status DC Levofloxacin (Levaquin) 750 mg Q24H PO Last administered on 10/21/16 22:02; Start 10/21/16 at 21:00 Desvenlafaxine Succinate (Pristiq Er) 100 mg DAILY PO ; Start 10/22/16 at 11:00 Levothyroxine Sodium (Synthroid) 50 mcg DAILY07 PO ; Start 10/22/16 at 11:00 Ondansetron HCl (Zofran) 4 mg PRN Q6HRS PRN IV Nausea; Start 10/23/16 at 07:00 ; Stop 10/24/16 at 06:59 Fentanyl Citrate (Fentanyl 2ml Vial) 25 mcg PRN Q5MIN PRN IV MILD PAIN; Start 10/23/16 at 07:00; Stop 10/24/16 at 06:59 Fentanyl Citrate (Fentanyl 2ml Vial) 50 mcg PRN Q5MIN PRN IV MODERATE PAIN; Start 10/23/16 at 07:00; Stop 10/24/16 at 06:59 Morphine Sulfate 1 mg 1 mg PRN Q10MIN PRN IV SEVERE PAIN; Start 10/23/16 at 07: 00; Stop 10/24/16 at 06:59 Lactated Ringer's (Iv Lactated Ringers) 1,000 ml @ 0 mls/hr Q0M IV ; Start at 07:00; Stop 10/23/16 at 18:59 Lidocaine HCl 2 ml 1X PRN PRN ID IV START; Start 10/23/16 at 07:00; Stop at 06:59 Hydromorphone HCl (Dilaudid) 0.5 mg PRN Q10MIN PRN IV SEVERE PAIN, Second choice; Start 10/23/16 at 07:00; Stop 10/24/16 at 06:59 Prochlorperazine Edisylate (Compazine) 5 mg PACU PRN PRN IV NAUSEA; Start 10/23 at 07:00; Stop 10/24/16 at 06:59 Active Scripts Active Reported NICODERM CQ 21mg (Nicotine) 1 Each Patch.td24 1 Patch TP DAILY Singulair Tablet (Montelukast Sodium) 10 Mg Tablet 10 Mg PO HS Hydromorphone 1 Mg/Ml Syringe (Hydromorphone Hcl) 1 Mg/1 Ml Disp.syrin 1 Mg IJ PRN Q2HRS PRN Hydrocodone-Apap 5-325 (Hydrocodone Bit/Acetaminophen) 1 Each Tablet 1 Tab PO PRN Q4HRS PRN Mucinex (Guaifenesin) 600 Mg Tablet.er 1 Tab PO BID Budesonide 0.5 Mg/2 Ml Ampul.neb 1 Vial NEB BID Albuterol Sulfate Conc Neb Soln (Albuterol Sulfate) 2.5 Mg/0.5 Ml Vial.neb 2.5 Mg NEB Allergies Allergies: Coded Allergies: Penicillins (Verified Allergy, Intermediate, 10/21/16) naproxen (Verified Allergy, Intermediate, 10/21/16) ROS General: No: Appetite, Chills, Fatigue, Malaise, Night Sweats PSYCHOLOGICAL ROS: No: Anxiety, Behavioral Disorder, Concentration difficultie , Decreased libido, Depression, Disorientation, Hallucinations, Hostility, Irritablity, Memory difficulties, Mood Swings, Obsessive thoughts, Physical abuse, Sexual abuse, Sleep disturbances, Suicidal ideation Eyes: No Blurry vision, No Decreased vision, No Double vision, No Dry eyes, No Excessive tearing, No Eye Pain, No Itchy Eyes, No Loss of vision, No Photophobia , No Scotomata, No Uses contacts, No Uses glasses HEENT: No: Epistaxis, Heacaches, Hearing change, Nasal congestion, Nasal discharge, Oral lesions, Sinus pain, Sneezing, Snoring, Sore Throat, Tinnitus, Vertigo, Visual Changes, Vocal changes ALLERGY AND IMMUNOLOGY: No: Hives, Insect Bite Sensitivity, Itchy/Watery Eyes, Nasal Congestion, Post Nasal Drip, Seasonal Allergies Hematological and Lymphatic: No: Bleeding Problems, Blood Clots, Blood Transfusions, Brusing, Night Sweats, Pallor, Swollen Lymph Nodes ENDOCRINE: No: Breast Changes, Galactorrhea, Hair Pattern Changes, Hot Flashes , Malaise/lethargy, Mood Swings, Palpitations, Polydipsia/polyuria, Skin Changes , Temperature Intolerance, Unexpected Weight Changes Breast: No New/Changing Breast Lumps, No Nipple changes, No Nipple discharge Respiratory: YES: Pleuritic Pain, Shortness of breath, No: Cough, Hemoptysis, Orthopnea, SOB with excertion, Sputum Changes, Stridor , Tachypnea, Wheezing Cardiovascular: No Chest Pain, No Edema, No Lt Headedness, No Orthopnea, No Palpitations, No Paroxysmal Noc. Dyspnea Gastrointestinal: No Abdominal Pain, No Constipation, No Diarrhea, No Hematochezia, No Melena, No Nausea, No Vomiting Genitourinary: No Discharge, No Dysuria, No Flank Pain, No Frequency, No Hematuria, No Incontinence, No Pain, No Retention, No Urgency Musculoskeletal: No Gait Disturbance, No Joint Pain, No Joint Stiffness, No Joint Swelling, No Muscle Pain, No Muscular Weakness, No Pain In:, No Swelling In: Neurological: No Behavorial Changes, No Bowel/Bladder ControlChng, No Confusion , No Dizziness, No Gait Disturbance, No Headaches, No Impaired Coord/balance, No Memory Loss, No Numbness/Tingling, No Seizures, No Speech Problems, No Tremors, No Visual Changes, No Weakness Skin: No Acne, No Dry Skin, No Eczema, No Hair Changes, No Lumps, No Mole Changes, No Mottling, No Nail Changes, No Pruritus, No Rash, No Skin Lesion Changes Physical Exam General: Alert, Oriented X3, No acute distress HEENT: Atraumatic, PERRLA, EOMI Lungs: Clear to auscultation, Normal air movement Heart: Regular rate, Normal S1, Normal S2 Abdomen: Soft, No tenderness, No masses Extremities: No edema, Normal pulses Skin: No significant lesion Neuro: Normal gait, Normal speech, Strength at 5/5 X4 ext, Normal tone, Sensation intact, Cranial nerves 3-12 NL Psych/Mental Status: Mental status NL MUSCULOSKELETAL: No deformity Vitals VITALS Vital Signs Date Time Temp Pulse Resp B/P Pulse Ox O2 Delivery O2 Flow Rate FiO2 10/22/16 09:35 92 Nasal Cannula 3.0 10/22/16 09:04 16 10/22/16 07:00 94 141/93 10/22/16 05:20 98.5 98.5 Labs Labs Laboratory Tests Test 10/21/16 13:35 10/22/16 05:17 White Blood Count 10.2x10^3/uL (4.0-11.0) 8.3x10^3/uL (4.0-11.0) Red Blood Count 4.94x10^6/uL (3.50-5.40) 4.95x10^6/uL (3.50-5.40) Hemoglobin 14.0g/dL (12.0-15.5) 13.9g/dL (12.0-15.5) Hematocrit 42.3% (36.0-47.0) 41.7% (36.0-47.0) Mean Corpuscular Volume 86fL (79-100) 84fL (79-100) Mean Corpuscular Hemoglobin 28pg (25-35) 28pg (25-35) Mean Corpuscular Hemoglobin Concent 33g/dL (31-37) 33g/dL (31-37) Red Cell Distribution Width 13.2% (11.5-14.5) 13.3% (11.5-14.5) Platelet Count 201x10^3/uL (140-400) 192x10^3/uL (140-400) Neutrophils (%) (Auto) 78% (31-73) 71% (31-73) Lymphocytes (%) (Auto) 13% (24-48) 16% (24-48) Monocytes (%) (Auto) 7% (0-9) 7% (0-9) Eosinophils (%) (Auto) 2% (0-3) 4% (0-3) Basophils (%) (Auto) 1% (0-3) 3% (0-3) Neutrophils # (Auto) 8.0x10^3uL (1.8-7.7) 5.9x10^3uL (1.8-7.7) Lymphocytes # (Auto) 1.3x10^3/uL (1.0-4.8) 1.3x10^3/uL (1.0-4.8) Monocytes # (Auto) 0.7x10^3/uL (0.0-1.1) 0.5x10^3/uL (0.0-1.1) Eosinophils # (Auto) 0.2x10^3/uL (0.0-0.7) 0.4x10^3/uL (0.0-0.7) Basophils # (Auto) 0.1x10^3/uL (0.0-0.2) 0.2x10^3/uL (0.0-0.2) Prothrombin Time 13.4SEC (11.7-14.0) Prothromb Time International Ratio 1.1 (0.8-1.1) Activated Partial Thromboplast Time 32SEC (24-38) Sodium Level 142mmol/L (136-145) 139mmol/L (136-145) Potassium Level 4.2mmol/L (3.5-5.1) 4.4mmol/L (3.5-5.1) Chloride Level 105mmol/L (98-107) 103mmol/L (98-107) Carbon Dioxide Level 30mmol/L (21-32) 29mmol/L (21-32) Anion Gap 7 (6-14) 7 (6-14) Blood Urea Nitrogen 12mg/dL (7-20) 12mg/dL (7-20) Creatinine 0.8mg/dL (0.6-1.0) 0.8mg/dL (0.6-1.0) Estimated GFR (Cockcroft-Gault) 80.3 80.3 BUN/Creatinine Ratio 15 (6-20) 15 (6-20) Glucose Level 99mg/dL (70-99) 94mg/dL (70-99) Calcium Level 8.8mg/dL (8.5-10.1) 8.6mg/dL (8.5-10.1) Total Bilirubin 0.4mg/dL (0.2-1.0) 0.5mg/dL (0.2-1.0) Aspartate Amino Transf (AST/SGOT) 14U/L (15-37) 18U/L (15-37) Alanine Aminotransferase (ALT/SGPT) 25U/L (14-59) 33U/L (14-59) Alkaline Phosphatase 59U/L (46-116) 64U/L (46-116) Total Protein 6.5g/dL (6.4-8.2) 6.4g/dL (6.4-8.2) Albumin 2.8g/dL (3.4-5.0) 2.5g/dL (3.4-5.0) Albumin/Globulin Ratio 0.8 (1.0-1.7) 0.6 (1.0-1.7) Laboratory Tests Test 10/22/16 05:17 White Blood Count 8.3x10^3/uL (4.0-11.0) Red Blood Count 4.95x10^6/uL (3.50-5.40) Hemoglobin 13.9g/dL (12.0-15.5) Hematocrit 41.7% (36.0-47.0) Mean Corpuscular Volume 84fL (79-100) Mean Corpuscular Hemoglobin 28pg (25-35) Mean Corpuscular Hemoglobin Concent 33g/dL (31-37) Red Cell Distribution Width 13.3% (11.5-14.5) Platelet Count 192x10^3/uL (140-400) Neutrophils (%) (Auto) 71% (31-73) Lymphocytes (%) (Auto) 16% (24-48) Monocytes (%) (Auto) 7% (0-9) Eosinophils (%) (Auto) 4% (0-3) Basophils (%) (Auto) 3% (0-3) Neutrophils # (Auto) 5.9x10^3uL (1.8-7.7) Lymphocytes # (Auto) 1.3x10^3/uL (1.0-4.8) Monocytes # (Auto) 0.5x10^3/uL (0.0-1.1) Eosinophils # (Auto) 0.4x10^3/uL (0.0-0.7) Basophils # (Auto) 0.2x10^3/uL (0.0-0.2) Sodium Level 139mmol/L (136-145) Potassium Level 4.4mmol/L (3.5-5.1) Chloride Level 103mmol/L (98-107) Carbon Dioxide Level 29mmol/L (21-32) Anion Gap 7 (6-14) Blood Urea Nitrogen 12mg/dL (7-20) Creatinine 0.8mg/dL (0.6-1.0) Estimated GFR (Cockcroft-Gault) 80.3 BUN/Creatinine Ratio 15 (6-20) Glucose Level 94mg/dL (70-99) Calcium Level 8.6mg/dL (8.5-10.1) Total Bilirubin 0.5mg/dL (0.2-1.0) Aspartate Amino Transf (AST/SGOT) 18U/L (15-37) Alanine Aminotransferase (ALT/SGPT) 33U/L (14-59) Alkaline Phosphatase 64U/L (46-116) Total Protein 6.4g/dL (6.4-8.2) Albumin 2.5g/dL (3.4-5.0) Albumin/Globulin Ratio 0.6 (1.0-1.7) Images Images CT chest Significant decrease in size of left pneumothorax when compared with exam one day earlier. There continues to be a small pneumothorax on the left. The zones of atelectasis in the left upper and left lower lobe persist. There are continued bilateral pleural effusions. Assessment/Plan Assessment/Plan 36-year-old female with first episode of spontaneous left pneumothorax. The pneumothorax has persisted for a week. She has large bilateral apical bullae. Owing to failure of the left pneumothorax to resolve, and the presence of large apical bullae in the left lung, I strongly recommend a left VATS, wedge resection and pleurodesis. The risks, benefits and limitations of the procedure were explained to the patient who agreed to proceed. Left VATS, wedge resection and pleurodesis, tomorrow October 23, 2016. NPO after midnight Type and screen LUDWIG HOPSON MD Oct 22, 2016 14:17
[2016-10-22] MEDS: LEVOTHYROXINE 50 MCG TABLET PO SCH (15:48)
[2016-10-22] MEDS: DESVENLAFAXINE 50 MG TAB.ER.24H. PO SCH (15:48)
--- NOTE | 2016-10-22 19:27 | EEG ---
DATE OF SERVICE: 10/22/2016 EEG NUMBER: [id number] OBJECTIVE: This is a 36-year-old female patient with history of seizure. She stated that she had 2 seizures the day before admission. EEG was requested to evaluate seizure activity. METHODS: Twenty electrodes were applied according to the international 10-20 electrode placement system. EKG monitoring, hyperventilation, intermittent photic stimulation, monopolar and bipolar montages are routinely utilized. The record was obtained on a digital system with video monitoring. MEDICATIONS: The patient was on Keppra, but she discontinued it after 2014. FINDINGS: 1. Background: The patient was recorded in the awake, drowsy and sleep states. The overall background amplitude is 5-10 microvolts. A posterior dominant rhythm of 8-9 Hz is observed with superimposed mixture in theta and delta frequencies. 2. Abnormalities: No specific epileptiform discharge or electrographic seizure is seen. 3. Activation: Hyperventilation was not performed because the patient has a chest tube and was unable to perform hyperventilation. Intermittent photic stimulation was performed with photic driving. IMPRESSION: This EEG falls into the abnormal category of the study for the awake, drowsy and sleep states. There is superimposed slowing in theta and delta frequencies, but is less than 50% of the time. No focal, lateralizing, specific epileptiform discharge or electrographic seizure is seen. However, even a normal EEG does not rule out seizure. ALIYAH MADRID MD DR: Michael JOB#: [id number] / [id number] NOMAN
[2016-10-22] MEDS ORDERED: ZOLPIDEM 5 MG TABLET. PO PRN (20:30)
[2016-10-22] MEDS: MONTELUKAST SODIUM 10 MG TABLET. PO SCH (21:16)
[2016-10-22] MEDS: LEVOFLOXACIN 750 MG TABLET. PO SCH (21:16)
[2016-10-23] VITALS (19 sets, daily range): BP systolic 100–146; BP diastolic 56–91
[2016-10-23] MEDS: HYDROMORPHONE 2 MG/ML VIAL. IV PRN ×9 (00:58→22:53)
[2016-10-23 05:49] LABS: BASO # 0.1 x10^3/uL (0.0-0.2); BASO % 1 % (0-3); EOS % 4 % (0-3); HEMATOCRIT 39.6 % (36.0-47.0); HEMOGLOBIN 13.1 g/dL (12.0-15.5); LYMPH # 1.3 x10^3/uL (1.0-4.8); LYMPH % 16 % (24-48); MEAN CORPUSCULAR HEMOGLOBIN 28 pg (25-35); MEAN CORPUSCULAR HGB CONC 33 g/dL (31-37); MEAN CORPUSCULAR VOLUME 84 fL (79-100); MONO % 6 % (0-9); NEUT % 73 % (31-73); PLATELET COUNT 186 x10^3/uL (140-400); RED CELL DISTRIBUTION WIDTH 13.1 % (11.5-14.5); WHITE BLOOD COUNT 8.2 x10^3/uL (4.0-11.0)
[2016-10-23 06:06] LABS: ALBUMIN 2.5 g/dL (3.4-5.0); ALBUMIN/GLOBULIN RATIO 0.9 (1.0-1.7); CALCIUM 8.3 mg/dL (8.5-10.1); CREATININE 0.7 mg/dL (0.6-1.0); GFR 93.6; POTASSIUM 4.2 mmol/L (3.5-5.1); TOTAL BILIRUBIN 0.4 mg/dL (0.2-1.0); TOTAL PROTEIN 5.4 g/dL (6.4-8.2)
[2016-10-23] MEDS ORDERED: IV RINGERS,LACTATED 1000ML 1,000 ML IV SCH (07:00)
[2016-10-23] MEDS ORDERED: FENTANYL PF 100 MCG/2 ML VIAL. IV PRN (07:00)
[2016-10-23] MEDS ORDERED: ONDANSETRON PF 4 MG/2 ML VIAL. IV PRN (07:00)
[2016-10-23] MEDS ORDERED: PROCHLORPERAZINE 10 MG/2 ML VIAL. IV PRN (07:00)
[2016-10-23] MEDS ORDERED: LIDOCAINE 1% 1 ML SYRINGE. ID PRN (07:00)
[2016-10-23] MEDS: LEVOTHYROXINE 50 MCG TABLET PO SCH (07:56)
[2016-10-23] MEDS: DESVENLAFAXINE 50 MG TAB.ER.24H. PO SCH (07:56)
[2016-10-23] MEDS: GUAIFENESIN ER 600 MG TABLET.ER PO SCH ×2 (07:56→20:01)
[2016-10-23] MEDS: NICOTINE 21MG PATCH. TD SCH (09:00)
[2016-10-23] MEDS: FENTANYL PF 100 MCG/2 ML VIAL. IV PRN ×2 (09:08→12:12)
[2016-10-23] MEDS: BUDESONIDE 0.5 MG/2 ML NEBU NEB SCH ×2 (09:27→20:06)
--- NOTE | 2016-10-23 12:07 | PDOC ---
PULMONARY PROGRESS NOTES Subjective no soa Vitals Vital Signs Date Time Temp Pulse Resp B/P Pulse Ox O2 Delivery O2 Flow Rate FiO2 10/23/16 11:00 72 16 113/60 99 Nasal Cannula 3.0 10/23/16 07:00 98.4 98.4 General: Alert, No acute distress Lungs: Clear Cardiovascular: S1 Abdomen: Soft Neuro Exam: Alert Extremities: No Edema Skin: Warm Labs Laboratory Tests Test 10/21/16 13:35 10/21/16 14:30 10/22/16 05:17 10/23/16 05:40 White Blood Count 10.2x10^3/uL (4.0-11.0) 8.3x10^3/uL (4.0-11.0) 8.2x10^3/uL (4.0-11.0) Red Blood Count 4.94x10^6/uL (3.50-5.40) 4.95x10^6/uL (3.50-5.40) 4.70x10^6/uL (3.50-5.40) Hemoglobin 14.0g/dL (12.0-15.5) 13.9g/dL (12.0-15.5) 13.1g/dL (12.0-15.5) Hematocrit 42.3% (36.0-47.0) 41.7% (36.0-47.0) 39.6% (36.0-47.0) Mean Corpuscular Volume 86fL (79-100) 84fL (79-100) 84fL (79-100) Mean Corpuscular Hemoglobin 28pg (25-35) 28pg (25-35) 28pg (25-35) Mean Corpuscular Hemoglobin Concent 33g/dL (31-37) 33g/dL (31-37) 33g/dL (31-37) Red Cell Distribution Width 13.2% (11.5-14.5) 13.3% (11.5-14.5) 13.1% (11.5-14.5) Platelet Count 201x10^3/uL (140-400) 192x10^3/uL (140-400) 186x10^3/uL (140-400) Neutrophils (%) (Auto) 78% (31-73) 71% (31-73) 73% (31-73) Lymphocytes (%) (Auto) 13% (24-48) 16% (24-48) 16% (24-48) Monocytes (%) (Auto) 7% (0-9) 7% (0-9) 6% (0-9) Eosinophils (%) (Auto) 2% (0-3) 4% (0-3) 4% (0-3) Basophils (%) (Auto) 1% (0-3) 3% (0-3) 1% (0-3) Neutrophils # (Auto) 8.0x10^3uL (1.8-7.7) 5.9x10^3uL (1.8-7.7) 6.0x10^3uL (1.8-7.7) Lymphocytes # (Auto) 1.3x10^3/uL (1.0-4.8) 1.3x10^3/uL (1.0-4.8) 1.3x10^3/uL (1.0-4.8) Monocytes # (Auto) 0.7x10^3/uL (0.0-1.1) 0.5x10^3/uL (0.0-1.1) 0.5x10^3/uL (0.0-1.1) Eosinophils # (Auto) 0.2x10^3/uL (0.0-0.7) 0.4x10^3/uL (0.0-0.7) 0.3x10^3/uL (0.0-0.7) Basophils # (Auto) 0.1x10^3/uL (0.0-0.2) 0.2x10^3/uL (0.0-0.2) 0.1x10^3/uL (0.0-0.2) Prothrombin Time 13.4SEC (11.7-14.0) Prothromb Time International Ratio 1.1 (0.8-1.1) Activated Partial Thromboplast Time 32SEC (24-38) Sodium Level 142mmol/L (136-145) 139mmol/L (136-145) 141mmol/L (136-145) Potassium Level 4.2mmol/L (3.5-5.1) 4.4mmol/L (3.5-5.1) 4.2mmol/L (3.5-5.1) Chloride Level 105mmol/L (98-107) 103mmol/L (98-107) 105mmol/L (98-107) Carbon Dioxide Level 30mmol/L (21-32) 29mmol/L (21-32) 29mmol/L (21-32) Anion Gap 7 (6-14) 7 (6-14) 7 (6-14) Blood Urea Nitrogen 12mg/dL (7-20) 12mg/dL (7-20) 14mg/dL (7-20) Creatinine 0.8mg/dL (0.6-1.0) 0.8mg/dL (0.6-1.0) 0.7mg/dL (0.6-1.0) Estimated GFR (Cockcroft-Gault) 80.3 80.3 93.6 BUN/Creatinine Ratio 15 (6-20) 15 (6-20) 20 (6-20) Glucose Level 99mg/dL (70-99) 94mg/dL (70-99) 98mg/dL (70-99) Calcium Level 8.8mg/dL (8.5-10.1) 8.6mg/dL (8.5-10.1) 8.3mg/dL (8.5-10.1) Total Bilirubin 0.4mg/dL (0.2-1.0) 0.5mg/dL (0.2-1.0) 0.4mg/dL (0.2-1.0) Aspartate Amino Transf (AST/SGOT) 14U/L (15-37) 18U/L (15-37) 18U/L (15-37) Alanine Aminotransferase (ALT/SGPT) 25U/L (14-59) 33U/L (14-59) 37U/L (14-59) Alkaline Phosphatase 59U/L (46-116) 64U/L (46-116) 67U/L (46-116) Total Protein 6.5g/dL (6.4-8.2) 6.4g/dL (6.4-8.2) 5.4g/dL (6.4-8.2) Albumin 2.8g/dL (3.4-5.0) 2.5g/dL (3.4-5.0) 2.5g/dL (3.4-5.0) Albumin/Globulin Ratio 0.8 (1.0-1.7) 0.6 (1.0-1.7) 0.9 (1.0-1.7) Nasal Screen MRSA (PCR) Negative (Negative) [id number] 193mg/dL (90-200) Thyroid Stimulating Hormone (TSH) 3.969uIU/mL (0.358-3.74) Laboratory Tests Test 10/23/16 05:40 White Blood Count 8.2x10^3/uL (4.0-11.0) Red Blood Count 4.70x10^6/uL (3.50-5.40) Hemoglobin 13.1g/dL (12.0-15.5) Hematocrit 39.6% (36.0-47.0) Mean Corpuscular Volume 84fL (79-100) Mean Corpuscular Hemoglobin 28pg (25-35) Mean Corpuscular Hemoglobin Concent 33g/dL (31-37) Red Cell Distribution Width 13.1% (11.5-14.5) Platelet Count 186x10^3/uL (140-400) Neutrophils (%) (Auto) 73% (31-73) Lymphocytes (%) (Auto) 16% (24-48) Monocytes (%) (Auto) 6% (0-9) Eosinophils (%) (Auto) 4% (0-3) Basophils (%) (Auto) 1% (0-3) Neutrophils # (Auto) 6.0x10^3uL (1.8-7.7) Lymphocytes # (Auto) 1.3x10^3/uL (1.0-4.8) Monocytes # (Auto) 0.5x10^3/uL (0.0-1.1) Eosinophils # (Auto) 0.3x10^3/uL (0.0-0.7) Basophils # (Auto) 0.1x10^3/uL (0.0-0.2) Sodium Level 141mmol/L (136-145) Potassium Level 4.2mmol/L (3.5-5.1) Chloride Level 105mmol/L (98-107) Carbon Dioxide Level 29mmol/L (21-32) Anion Gap 7 (6-14) Blood Urea Nitrogen 14mg/dL (7-20) Creatinine 0.7mg/dL (0.6-1.0) Estimated GFR (Cockcroft-Gault) 93.6 BUN/Creatinine Ratio 20 (6-20) Glucose Level 98mg/dL (70-99) Calcium Level 8.3mg/dL (8.5-10.1) Total Bilirubin 0.4mg/dL (0.2-1.0) Aspartate Amino Transf (AST/SGOT) 18U/L (15-37) Alanine Aminotransferase (ALT/SGPT) 37U/L (14-59) Alkaline Phosphatase 67U/L (46-116) Total Protein 5.4g/dL (6.4-8.2) Albumin 2.5g/dL (3.4-5.0) Albumin/Globulin Ratio 0.9 (1.0-1.7) Thyroid Stimulating Hormone (TSH) 3.969uIU/mL (0.358-3.74) Medications Active Scripts Medications Dose Route/Sig Days Date Category NICODERM CQ 21mg (Nicotine) 1 Each Patch.td24 1 Patch TP DAILY 10/21/16 Reported Singulair Tablet (Montelukast Sodium) 10 Mg Tablet 10 Mg PO HS 10/21/16 Reported Hydromorphone 1 Mg/Ml Syringe (Hydromorphone Hcl) 1 Mg/1 Ml Disp.syrin 1 Mg IJ PRN Q2HRS PRN 10/21/16 Reported Hydrocodone-Apap 5-325 (Hydrocodone Bit/Acetaminophen) 1 Each Tablet 1 Tab PO PRN Q4HRS PRN 10/21/16 Reported Mucinex (Guaifenesin) 600 Mg Tablet.er 1 Tab PO BID 10/21/16 Reported Budesonide 0.5 Mg/2 Ml Ampul.neb 1 Vial NEB BID 10/21/16 Reported Albuterol Sulfate Conc Neb Soln (Albuterol Sulfate) 2.5 Mg/0.5 Ml Vial.neb 2.5 Mg NEB 10/21/16 Reported Impression . 1. Acute Hypoxemic Respiratory Failure due to PTX 2. Left Pneumothorax 3. Left Apical Infiltrate/Right LL infiltrate 4. Tobacco Dependency 5. Seizure DO 6. Anxiety, PTSD, Depression 7. Mild PCM Plan . 1. d/w Dr Mcghee. She has significant blebs upper lobes and is at risk for recurrent PTX. best option is Left VATS/ bullectomy/ mechanical abrasion. 2. Left Chest tube to suction 3. Continue Bronchodilatory therapy 4. Pulmonary Infiltrate in QUITA, RLL - will continue Abx therapy 5. Likely residual Ptx, from when chest tube pulled rather than second ptx. 6. Seizure Tx per Neurology RIN MARTEL MD Oct 23, 2016 12:07
[2016-10-23] MEDS ORDERED: FENTANYL PF 250 MCG/5 ML VIAL. ONE (12:15)
[2016-10-23] MEDS ORDERED: DEXAMETHASONE SOD PHOS 20 MG/5 ML VIAL. ONE (12:15)
[2016-10-23] MEDS ORDERED: DESFLURANE > 120 MINUTES IH ONE ×2 (12:15→15:24)
[2016-10-23] MEDS ORDERED: MIDAZOLAM HCL 2 MG/2 ML VIAL. ONE (12:15)
[2016-10-23] MEDS ORDERED: ROCURONIUM 100 MG/10 ML VIAL. ONE (12:15)
[2016-10-23] MEDS ORDERED: PROPOFOL 20 ML IV ONE (12:15)
[2016-10-23] MEDS ORDERED: LIDOCAINE 2% 100 MG/5 ML DISP.SYRIN. ONE (12:16)
[2016-10-23] MEDS ORDERED: ONDANSETRON PF 4 MG/2 ML VIAL. ONE (12:16)
[2016-10-23] MEDS ORDERED: SURGICEL HEMOSTAT 2X14 EACH. ONE (12:42)
[2016-10-23] MEDS ORDERED: 0.9 % SODIUM CHLORIDE 50 ML VIAL. IJ ONE (12:56)
[2016-10-23] MEDS ORDERED: TALC 4GM AERO.POWD CANISTER. IPL ONE ×3 (13:38→15:00)
[2016-10-23] MEDS ORDERED: VANCOMYCIN 1GM IVPB FOR OMNI 0 ML ONE (13:44)
--- NOTE | 2016-10-23 13:54 | PDOC ---
PROGRESS NOTES Assessment Assessment Seizure Pneumothorax. Bilateral pleural effusion. Smoking, quit 6 days ago ADHD Anxiety RECOMMENDATIONS/PLAN: Resume Keppra start 250 mg bid. Treat medical diseases. Lab: HIV Ab EEG on 10/22: No seizure activity. 6-8 Hz/sec. PAST MEDICAL AND SURGICAL HISTORY: Please see H&P ALLERGY: PCN Naproxen MEDICATIONS: Refer to MAR REVIEW OF SYSTEMS: Constitutional: No cachexia. Head: No recent traumatic brain or head injury. Skin: No edema, or rash. Ear: No infection, tinnitus. Eyes: No vision loss, or diplopia. Nose: No bleeding or purulent discharges. Hearing: No hearing decrease. Neck: No recent injury. Breast: No history of cancer, masses, or discharges. Cardiac: No AL, arrhythmia Pulmonary: Smoking GI: No GI Ulcer, GI bleeding Urinary/genital: UTI. Endocrine: No cousin face, craniofacial dysmorphism, polydactyly. Skeletomuscular: No muscular atrophy, deformity. Neurological: see HP. Psychiatric: Denies drug use/abuse. Otherwise, not [id number] review of systems. PHYSICAL EXAMINATION: General appearance in subacute distress. HEENT: Normocephalic and nontraumatic. Eyes, nose, ears, and throat are unremarkable. Hearing decrease. Neck is supple. No lymphadenopathy. No bruits are heard over the carotid artery. No Crepitus. Cardiovascular: S1, S2, regular rate and rhythm. Pulmonary: decreased to auscultation bilaterally. Abdomen: Bowel sounds are positive. Abdomen is soft, nontender, and nondistended. Extremities: No rash, lesions, or edema. No restriction of range of motion NEUROLOGICAL EXAMINATION: Alert. Oriented to time, place and person. PERRL. EOMI. CN: no focal findings. Muscle tone: within normal. Muscle strength: 5- DTR: 2 Plantar reflex: Flexor response bilaterally Gait: not examined in bed. Sensory exam: no abnormal findings. No cerebellar signs elicited. F-T-N test accurate. Objective Objective Vital Signs Date Time Temp Pulse Resp B/P Pulse Ox O2 Delivery O2 Flow Rate FiO2 10/23/16 13:00 72 20 117/81 93 Nasal Cannula 3.0 10/23/16 12:00 98.8 98.8 Intake and Output 10/23/16 07:00 Intake Total 1400 ml Output Total 3252 ml Balance -1852 ml Intake Oral 1400 ml Output Urine Total 3250 ml Chest Tube Drainage Total 2 ml Vitals Signs Vitals VS - Last 72 Hours, by Label Date Time Temp Pulse Resp B/P Pulse Ox O2 Delivery O2 Flow Rate FiO2 10/23/16 13:00 72 20 117/81 93 Nasal Cannula 3.0 10/23/16 12:40 26 95 Nasal Cannula 3.0 10/23/16 12:12 24 99 Nasal Cannula 3.0 10/23/16 12:00 Nasal Cannula 3.0 10/23/16 12:00 98.8 92 16 111/78 99 Nasal Cannula 3.0 98.8 10/23/16 11:00 72 16 113/60 99 Nasal Cannula 3.0 10/23/16 10:00 87 16 119/76 94 Nasal Cannula 3.0 10/23/16 09:28 94 Nasal Cannula 3.0 10/23/16 09:13 94 20 118/79 93 Nasal Cannula 3.0 10/23/16 09:08 30 95 Nasal Cannula 3.0 10/23/16 08:09 Nasal Cannula 3.0 10/23/16 08:06 89 18 108/84 92 Nasal Cannula 3.0 10/23/16 07:00 98.4 86 24 100/71 94 Nasal Cannula 3.0 98.4 10/23/16 06:00 94 14 109/72 94 Nasal Cannula 3.0 10/23/16 05:55 14 94 Nasal Cannula 3.0 10/23/16 05:20 16 96 Nasal Cannula 3.0 10/23/16 05:00 96 13 109/68 93 Nasal Cannula 3.0 10/23/16 04:00 Nasal Cannula 3.0 10/23/16 04:00 98.4 87 16 101/66 96 Nasal Cannula 3.0 98.4 10/23/16 03:00 84 14 105/56 94 Nasal Cannula 3.0 10/23/16 02:00 84 21 101/62 92 Nasal Cannula 3.0 10/23/16 01:00 93 13 107/69 96 Nasal Cannula 3.0 10/23/16 00:58 16 95 Nasal Cannula 3.0 10/23/16 00:10 Nasal Cannula 3.0 10/23/16 00:00 98.3 100 14 107/69 93 Nasal Cannula 3.0 98.3 10/22/16 23:00 91 16 119/88 96 Nasal Cannula 3.0 10/22/16 22:00 98 18 119/82 95 Nasal Cannula 3.0 10/22/16 21:00 98 28 112/76 95 Nasal Cannula 3.0 10/22/16 20:56 22 94 Nasal Cannula 3.0 10/22/16 20:00 94 22 101/58 95 BiPAP/CPAP 3.0 10/22/16 19:45 Nasal Cannula 3.0 10/22/16 19:40 19 97 Nasal Cannula 3.0 10/22/16 19:18 95 Nasal Cannula 3.0 10/22/16 19:00 98.3 97 19 127/86 93 Nasal Cannula 3.0 98.3 10/22/16 18:35 95 Nasal Cannula 3.0 10/22/16 18:00 100 17 131/82 95 Nasal Cannula 4.0 10/22/16 16:00 Nasal Cannula 4.0 10/22/16 16:00 93 22 116/88 93 Room Air 10/22/16 15:47 22 92 Nasal Cannula 4.0 10/22/16 14:00 94 20 118/88 92 Nasal Cannula 4.0 10/22/16 13:00 22 116/90 93 Nasal Cannula 4.0 10/22/16 12:00 Nasal Cannula 4.0 10/22/16 12:00 98.0 93 26 94 Nasal Cannula 4.0 98.0 10/22/16 11:00 94 15 106/65 92 Nasal Cannula 4.0 10/22/16 09:35 92 Nasal Cannula 3.0 10/22/16 09:04 16 Nasal Cannula 3.0 10/22/16 09:00 95 14 126/77 92 Nasal Cannula 4.0 10/22/16 08:14 16 92 Nasal Cannula 5.0 10/22/16 08:00 Nasal Cannula 4.0 10/22/16 08:00 97.5 95 28 131/85 95 Nasal Cannula 4.0 97.5 10/22/16 07:00 94 141/93 94 Nasal Cannula 5.0 Laboratory Laboratory Laboratory Tests Test 10/23/16 05:40 White Blood Count 8.2x10^3/uL (4.0-11.0) Red Blood Count 4.70x10^6/uL (3.50-5.40) Hemoglobin 13.1g/dL (12.0-15.5) Hematocrit 39.6% (36.0-47.0) Mean Corpuscular Volume 84fL (79-100) Mean Corpuscular Hemoglobin 28pg (25-35) Mean Corpuscular Hemoglobin Concent 33g/dL (31-37) Red Cell Distribution Width 13.1% (11.5-14.5) Platelet Count 186x10^3/uL (140-400) Neutrophils (%) (Auto) 73% (31-73) Lymphocytes (%) (Auto) 16% (24-48) Monocytes (%) (Auto) 6% (0-9) Eosinophils (%) (Auto) 4% (0-3) Basophils (%) (Auto) 1% (0-3) Neutrophils # (Auto) 6.0x10^3uL (1.8-7.7) Lymphocytes # (Auto) 1.3x10^3/uL (1.0-4.8) Monocytes # (Auto) 0.5x10^3/uL (0.0-1.1) Eosinophils # (Auto) 0.3x10^3/uL (0.0-0.7) Basophils # (Auto) 0.1x10^3/uL (0.0-0.2) Sodium Level 141mmol/L (136-145) Potassium Level 4.2mmol/L (3.5-5.1) Chloride Level 105mmol/L (98-107) Carbon Dioxide Level 29mmol/L (21-32) Anion Gap 7 (6-14) Blood Urea Nitrogen 14mg/dL (7-20) Creatinine 0.7mg/dL (0.6-1.0) Estimated GFR (Cockcroft-Gault) 93.6 BUN/Creatinine Ratio 20 (6-20) Glucose Level 98mg/dL (70-99) Calcium Level 8.3mg/dL (8.5-10.1) Total Bilirubin 0.4mg/dL (0.2-1.0) Aspartate Amino Transf (AST/SGOT) 18U/L (15-37) Alanine Aminotransferase (ALT/SGPT) 37U/L (14-59) Alkaline Phosphatase 67U/L (46-116) Total Protein 5.4g/dL (6.4-8.2) Albumin 2.5g/dL (3.4-5.0) Albumin/Globulin Ratio 0.9 (1.0-1.7) Thyroid Stimulating Hormone (TSH) 3.969uIU/mL (0.358-3.74) Medication Medications Current Medications Cellulose 1 each STK-MED ONCE .ROUTE ; Start 10/23/16 at 12:42; Stop 10/23/16 at 12:43; Status DC Desflurane (Suprane) 90 ml STK-MED ONCE IH ; Start 10/23/16 at 12:15; Stop 10/23 at 12:16; Status DC Dexamethasone Sodium Phosphate 20 mg 20 mg STK-MED ONCE .ROUTE ; Start 10/23/16 at 12:15; Stop 10/23/16 at 12:16; Status DC Fentanyl Citrate (Fentanyl 2ml Vial) 25 mcg PRN Q5MIN PRN IV MILD PAIN; Start 10/23/16 at 07:00; Stop 10/24/16 at 06:59 Fentanyl Citrate (Fentanyl 2ml Vial) 50 mcg PRN Q5MIN PRN IV MODERATE PAIN Last administered on 10/23/16t 12:12; Start 10/23/16 at 07:00; Stop 10/24/16 at 06:59 Fentanyl Citrate (Fentanyl 5ml Vial) 250 mcg STK-MED ONCE .ROUTE ; Start at 12:15; Stop 10/23/16 at 12:16; Status DC Hydromorphone HCl (Dilaudid) 0.5 mg PRN Q10MIN PRN IV SEVERE PAIN, Second choice; Start 10/23/16 at 07:00; Stop 10/24/16 at 06:59 Lactated Ringer's (Iv Lactated Ringers) 1,000 ml @ 0 mls/hr Q0M IV ; Start at 07:00; Stop 10/23/16 at 18:59 Lidocaine HCl 2 ml 1X PRN PRN ID IV START; Start 10/23/16 at 07:00; Stop at 06:59 Lidocaine HCl 100 mg STK-MED ONCE .ROUTE ; Start 10/23/16 at 12:16; Stop at 12:17; Status DC Midazolam HCl (Versed) 2 mg STK-MED ONCE .ROUTE ; Start 10/23/16 at 12:15; Stop 10/23/16 at 12:16; Status DC Morphine Sulfate 1 mg 1 mg PRN Q10MIN PRN IV SEVERE PAIN; Start 10/23/16 at 07: 00; Stop 10/24/16 at 06:59 Ondansetron HCl (Zofran) 4 mg PRN Q6HRS PRN IV Nausea; Start 10/23/16 at 07:00 ; Stop 10/24/16 at 06:59 Ondansetron HCl (Zofran) 4 mg STK-MED ONCE .ROUTE ; Start 10/23/16 at 12:16; Stop 10/23/16 at 12:17; Status DC Prochlorperazine Edisylate (Compazine) 5 mg PACU PRN PRN IV NAUSEA; Start 10/23 at 07:00; Stop 10/24/16 at 06:59 Propofol (Diprivan) 20 ml @ As Directed STK-MED ONCE IV ; Start 10/23/16 at 12: 15; Stop 10/23/16 at 12:16; Status DC Rocuronium Castana (Zemuron) 100 mg STK-MED ONCE .ROUTE ; Start 10/23/16 at 12: 15; Stop 10/23/16 at 12:16; Status DC Sodium Chloride (Sodium Chloride) 50 ml STK-MED ONCE IJ ; Start 10/23/16 at 12: 56; Stop 10/23/16 at 12:57; Status DC Talc 4 gm 4 gm STK-MED ONCE IPL ; Start 10/23/16 at 13:38; Stop 10/23/16 at 13: 39; Status DC Vancomycin HCl 250 ml @ As Directed STK-MED ONCE .ROUTE ; Start 10/23/16 at 13: 44; Stop 10/23/16 at 13:45; Status DC Vancomycin HCl/ Sodium Chloride (Iv Sodium Chloride 0.9% 500ml Bag) 500 ml @ 250 mls/hr 1X ONCE IV ; Start 10/23/16 at 14:00; Stop 10/23/16 at 15:59 Zolpidem Tartrate (Ambien) 10 mg PRN QHS PRN PO INSOMNIA Last administered on t 23:03; Start 10/22/16 at 20:30 Comment Review of Relevant I have reviewed the following items bry (where applicable) has been applied. ALIYAH MADRID MD Oct 23, 2016 13:54
[2016-10-23] MEDS ORDERED: ESMOLOL 100 MG/10 ML VIAL. IV ONE (13:57)
[2016-10-23] MEDS: LEVETIRACETAM 250 MG TABLET. PO SCH ×2 (14:00→20:01)
[2016-10-23] MEDS ORDERED: VANCOMYCIN 1.5 GM in IV NORMAL SALINE 500ML BAG 500 ML IV ONE (14:00)
[2016-10-23] MEDS ORDERED: ALBUTEROL SULFATE 2.5 MG/3 ML NEBU. ONE (14:02)
[2016-10-23] MEDS ORDERED: BUPIVACAINE MPF 0.5% 30 ML VIAL. ONE (14:18)
[2016-10-23] MEDS ORDERED: LIDOCAINE 1% 20 ML VIAL. ONE (14:19)
[2016-10-23] MEDS ORDERED: NEOSTIGMINE METHYLSULFATE 5 MG/5 ML SYRINGE. ONE (14:49)
[2016-10-23] MEDS ORDERED: GLYCOPYRROLATE 1 MG/5 ML VIAL. ONE (14:50)
--- NOTE | 2016-10-23 15:23 | PDOC ---
BRIEF OPERATIVE NOTE Date: Oct 23, 2016 Pre-Op Diagnosis Spontaneous recurrent left pneumothorax Post-Op Diagnosis Spontaneous recurrent left pneumothorax Procedure Performed Left VATS, upper lobe wedge resections 3 Talk pleurodesis Pleural adhesiolysis Surgeon Ludwig Caldwell MD Surface Lay Out Technician MAR Reich RNFA Anesthesia Type: General Blood Loss 20 mls IV Fluid 500 mls Urine Output N/A Specimens Obtained Left upper lobe wedge resections Findings Apical left upper lobe bullae Ruptured bullous on the anterior segment of the left upper lobe Complications None LUDWIG CALDWELL MD Oct 23, 2016 15:23
--- NOTE | 2016-10-23 15:26 | PDOC4 ---
Operative Note Operative Note Date: Oct 23, 2016 Preoperative diagnosis Spontaneous recurrent left pneumothorax Postoperative diagnosis Spontaneous recurrent left pneumothorax Procedure Left video-assisted thoracoscopic surgery upper lobe wedge resections 3 Talk pleurodesis Pleural adhesiolysis Surgeon Ludwig Hopson MD [place] Cutting Machine Operator MAR Reich RNFA Anesthesia: General Blood loss 20 mls IV fluids 500 mls Urine output N/A Specimens obtained Left upper lobe wedge resections Findings Apical left upper lobe bullae Ruptured bullous on the anterior segment of the left upper lobe Complications None Indication Ms Rayo, is a 36-year-old female with a 20 pack per year history of smoking, who presented a week ago at [facility] with shortness of breath and chest pain. She was found to have a spontaneous left pneumothorax after which a thoracostomy tube was placed. 3 days later the tube was removed but the patient subsequently developed a recurrent pneumothorax on that side. She was subsequently transferred to [facility] where a 10 [place] pigtail was placed with resolution of the pneumothorax. She has persistent small air leak. She currently denies any significant shortness of breath or chest pain. A CT of the chest demonstrated bilateral apical bullae. I was consulted for further management of her persistent spontaneous left pneumothorax. A left VATS wedge resections, talc pleurodesis were indicated. The risks, benefits and limitations of the procedure explained to the patient who agreed to proceed. Informed consent was obtained. Operation The patient's identity was confirmed using two unique identifies. The left chest was marked. The patient was transferred to the operating room and placed initially in supine position. An arterial line was placed. Anesthesia was induced by the anesthesiologist and the airway was secured with a double lumen ET tube. The patient was then placed in the right lateral decubitus position with the left side up. The left chest was prepped and draped in usual sterile surgical fashion. Timeout was then performed. The left lung was isolated. Access to the pleural cavity was gained by placing a 12 mm port in the 8th intercostal space in the midaxillary line. Two additional 1 cm working ports were placed in the sixth intercostal space at the posterior axillary line and the fifth intercostal space at the anterior axillary line. The thoracoscope was then inserted in the pleural cavity which was inspected. There were several apical pleural adhesions which were sharply divided using electrocautery. The lung and the pleural cavity were then carefully inspected. There were multiple small bullae at the apex of the left upper lobe. In addition there was a ruptured bullous on the anterior segment of the left upper lobe. The rest of the chest cavity was without any abnormalities. I then performed two wedge resections at the apex of the left upper lobe and a third wedge resection of the anterior segment of the left upper lobe which contained the ruptured the bullus. All resections were performed using several green loads of the 60 mm echelon stapler. The specimens were removed and sent to pathology. The pleural cavity was inspected for hemostasis and no bleeding was identified. Pleural cavity was then suctioned. I then proceeded with pleurodesis of the pleural cavity which was sprayed with talc. After applying the talc, the chest was inspected, confirming that all surfaces had been sprayed. A 28 [place]yan straight chest tube was then placed through the anterior port and secured with a No 2 silk stitch. The tube was connected to a Pleur-evac at -20 cm water suction. Anesthesia was then asked to ventilate the left lung, and I then confirmed with direct visualization that the lung had fully expanded. The remaining 2 ports were closed with an 0 Vicryl for the fascia, followed by 2-0 Vicryl for the subcutaneous tissues. The epidermis was reapproximated with 4-0 Monocryl. Dermabond was applied to all incisions and a sterile dressing onto the chest tube. At the end of procedure the instrument, sponge and needle counts were correct. Anesthesia was reversed, the patient was extubated and transferred back to her room in the ICU, in stable condition having tolerated the procedure well. LUDWIG HOPSON MD Oct 23, 2016 15:26
[2016-10-23] MEDS: MORPHINE SULFATE 2 MG/ML DISP.SYRIN. IV PRN ×2 (15:32→15:42)
[2016-10-23] MEDS: ALBUTEROL SULFATE 2.5 MG/3 ML NEBU. NEB PRN ×2 (16:16→20:06)
--- NOTE | 2016-10-23 16:19 | RAD ---
Portable chest, 10/23/2016: History: Postop evaluation Comparison is made to yesterday's study. A large caliber left chest tube has been inserted. Surgical sutures are now projected over the left upper chest. There is patchy left upper lobe atelectasis/infiltrate. There is a suggestion of a small residual left pneumothorax. The heart size and pulmonary vascularity are normal. There is moderate ongoing right lower lobe atelectasis/consolidation. IMPRESSION: 1. Postoperative changes on the left with a large caliber chest tube in place. 2. Persistent patchy left upper lobe atelectasis/infiltrate. 3. Probable small residual left pneumothorax. 4. Unchanged moderate right lower lobe atelectasis/consolidation.
[2016-10-23] MEDS: LEVOFLOXACIN 750 MG TABLET. PO SCH (20:01)
[2016-10-23] MEDS: MONTELUKAST SODIUM 10 MG TABLET. PO SCH (20:01)
[2016-10-23] MEDS ORDERED: ZOLPIDEM 5 MG TABLET. PO PRN (22:47)
[2016-10-24] MEDS: HYDROMORPHONE 2 MG/ML VIAL. IV PRN ×8 (01:53→21:53)
[2016-10-24] MEDS: HYDROCODONE/APAP 5/325MG TABLET. PO PRN ×5 (01:57→19:39)
[2016-10-24 02:22] VITALS: BP 137/86
--- NOTE | 2016-10-24 02:35 | PN ---
DATE: 10/23/2016 SUBJECTIVE: The patient is resting slightly propped up in bed, in no apparent distress. On questioning her, she denied any complaint. The nursing staff did not voice any concern. She apparently scheduled today for video-assisted thoracoscopy and pleurodesis. OBJECTIVE: GENERAL: When I examined her today, she looked well and was clearly in no apparent respiratory distress, pale, jaundice, cyanosis or thyromegaly. No jugular venous distention. No limb edema. VITAL SIGNS: Her heart rate was 70, blood pressure was 117/81, temperature was 98.8, respiratory rate was 20 and oxygen saturation was 93 on 3 liters of oxygen. HEAD, EYES, EARS, NOSE AND THROAT: Shows normocephalic, atraumatic. NECK: Supple. HEART: Showed normal first and second heart sounds. No gallop, rub or murmur. CHEST: Clear to auscultation. Chest shows central trachea, equal bilateral expansion and air entry. The patient has a chest tube on the left side. ABDOMEN: Distended, soft, nontender. No guarding or rigidity. No organomegaly. Hernial orifices intact. Bowel sounds normal. NEUROLOGIC: Her intake over the last 24 hours was 1400, output was ____. LABORATORY DATA: As of this morning, her white cell count was 8200, hemoglobin 13, hematocrit 39, MCV 84 and platelet count of 186,000. Her serum sodium was 141, potassium 4.2, chloride 105, bicarbonate 29, anion gap of 7, BUN 14, creatinine 0.7, estimated GFR was 94 mL per minute. Her glucose was 98, calcium was 8.3. Total bilirubin, AST, ALT, alkaline phosphatase were normal. Her total protein was 5.4, albumin was 2.5. Her alpha 1 antitrypsin is 193 which is within normal range. Her TSH was 3.969. ASSESSMENT: 1. Acute hypoxic respiratory failure due to pneumothorax. 2. Left spontaneous pneumothorax. 3. Left upper infiltrate and right lower lobe infiltrate. 4. Seizure disorder. 5. Anxiety. 6. Posttraumatic stress disorder. 7. Depression. 8. ADHD. 9. Hypothyroidism. PLAN: The patient is scheduled for left video-assisted thoracoscopy ____ mechanical abrasion. We will continue obviously with IV antibiotic. Continue with bronchodilator. Continue with Keppra for seizure disorder. NICHOLAS DEJESUS MD DR: Emilia JOB#: [id number] / [id number]
[2016-10-24 03:56] LABS: HEMATOCRIT 42.8 % (36.0-47.0); HEMOGLOBIN 14.2 g/dL (12.0-15.5); RED BLOOD COUNT 5.08 x10^6/uL (3.50-5.40); WHITE BLOOD COUNT 18.7 x10^3/uL (4.0-11.0)
[2016-10-24] MEDS: ALBUTEROL SULFATE 2.5 MG/3 ML NEBU. NEB PRN ×2 (04:09→20:13)
[2016-10-24 04:13] LABS: ALBUMIN 2.5 g/dL (3.4-5.0); ALBUMIN/GLOBULIN RATIO 0.6 (1.0-1.7); CALCIUM 8.7 mg/dL (8.5-10.1); CREATININE 0.7 mg/dL (0.6-1.0); GFR 93.6; POTASSIUM 4.2 mmol/L (3.5-5.1); TOTAL BILIRUBIN 0.5 mg/dL (0.2-1.0); TOTAL PROTEIN 6.6 g/dL (6.4-8.2)
[2016-10-24 07:03] VITALS: BP 138/91
[2016-10-24] MEDS: DESVENLAFAXINE 50 MG TAB.ER.24H. PO SCH (07:21)
[2016-10-24] MEDS: BUDESONIDE 0.5 MG/2 ML NEBU NEB SCH ×2 (07:58→20:08)
--- NOTE | 2016-10-24 08:07 | RAD ---
Portable chest, 10/24/2016: History: Follow-up pneumothorax, postop evaluation Comparison is made yesterday study. The left chest tube is unchanged in position. The heart is within normal limits in size. There is a small residual left-sided pneumothorax, best seen medially in the right apex. There is mild residual patchy left upper lobe atelectasis/infiltrate. An opacity has developed medially in the left base of the last several days suggesting partial atelectasis in the left lower lobe. There is persistent atelectasis/infiltrate the right base. The previous CT study demonstrated a small component of bilateral pleural fluid. The heart size is unchanged. The pulmonary vascularity as best visualized on the right is within normal limits. IMPRESSION: 1. Small persistent left pneumothorax. 2. Unchanged left upper lobe and right lower lobe atelectasis/infiltrate. 3. Partial atelectasis/infiltrate has developed in the left lower lobe over the last several days.
--- NOTE | 2016-10-24 08:50 | PDOC ---
Infectious Disease Note ROS ROS GEN: Denies fevers, chills, sweats HEENT: Denies blurred vision, sore throat CV: Denies chest pain RESP: Denies shortness of air, cough GI: Denies n/v/d NEURO: Denies confusion, dizziness MSK: Denies weakness, joint pain/swelling Vital Sign Vital Signs Vital Signs Date Time Temp Pulse Resp B/P Pulse Ox O2 Delivery O2 Flow Rate FiO2 10/24/16 07:55 92 Nasal Cannula 5.0 10/24/16 07:32 22 10/24/16 07:03 98.2 120 138/91 98.2 Physical Exam PHYSICAL EXAM GENERAL: NAD, Alert HEENT: PERRL, OC/OP NECK: Supple, no JVD, no LN LUNGS: Clear HEART: S1S2, no gallop, no murmur ABD: Soft, NT, no organomegaly, no rebound EXT: No edema, no cyanosis CREATIVE ART DIRECTOR: Alert, oriented x 3, no focal neurologic deficit SKIN: No rash IV: ok Labs Lab Laboratory Tests Test 10/24/16 03:42 White Blood Count 18.7x10^3/uL (4.0-11.0) Red Blood Count 5.08x10^6/uL (3.50-5.40) Hemoglobin 14.2g/dL (12.0-15.5) Hematocrit 42.8% (36.0-47.0) Mean Corpuscular Volume 84fL (79-100) Mean Corpuscular Hemoglobin 28pg (25-35) Mean Corpuscular Hemoglobin Concent 33g/dL (31-37) Red Cell Distribution Width 13.0% (11.5-14.5) Platelet Count 220x10^3/uL (140-400) Sodium Level 135mmol/L (136-145) Potassium Level 4.2mmol/L (3.5-5.1) Chloride Level 99mmol/L (98-107) Carbon Dioxide Level 27mmol/L (21-32) Anion Gap 9 (6-14) Blood Urea Nitrogen 13mg/dL (7-20) Creatinine 0.7mg/dL (0.6-1.0) Estimated GFR (Cockcroft-Gault) 93.6 BUN/Creatinine Ratio 19 (6-20) Glucose Level 126mg/dL (70-99) Calcium Level 8.7mg/dL (8.5-10.1) Total Bilirubin 0.5mg/dL (0.2-1.0) Aspartate Amino Transf (AST/SGOT) 17U/L (15-37) Alanine Aminotransferase (ALT/SGPT) 38U/L (14-59) Alkaline Phosphatase 83U/L (46-116) Total Protein 6.6g/dL (6.4-8.2) Albumin 2.5g/dL (3.4-5.0) Albumin/Globulin Ratio 0.6 (1.0-1.7) Objective Assessment Spontanous pneumonthorax s/p VATs 10/23 leukocytosis - Post op and post Dexamethasone PCN allergy - Has tolerated Keflex and ? amox Tobacco abuse Plan Plan of Care No need for further abx at this time from ID standpoint will d/c Levofloxacin Thank you # [id number] GOLDIE WALLACE MD Oct 24, 2016 08:50
[2016-10-24] MEDS: NICOTINE 21MG PATCH. TD SCH (09:00)
--- NOTE | 2016-10-24 09:53 | PDOC ---
Progress Note Subjective Subjective Overall doing well this morning. Complains of pain around her chest tube site. Also appears anxious. Minimal chest tube output and no air leak. Chest x-ray looks great. ROS ROS No nausea No vomiting No pain No rash Vital Sign Vital Signs Vital Signs Date Time Temp Pulse Resp B/P Pulse Ox O2 Delivery O2 Flow Rate FiO2 10/24/16 07:55 92 Nasal Cannula 5.0 10/24/16 07:32 22 10/24/16 07:03 98.2 120 138/91 98.2 Physical Exam PHYSICAL EXAM GENERAL: NAD, Alert HEENT: PERRL, OC/OP NECK: Supple, no JVD, no LN LUNGS: Clear HEART: S1S2, no gallop, no murmur ABD: Soft, NT, no organomegaly, no rebound EXT: No edema, no cyanosis MANUFACTURING ACCOUNTANT: Alert, oriented x 3, no focal neurologic deficit SKIN: No rash IV: ok Labs Lab Laboratory Tests Test 10/24/16 03:42 White Blood Count 18.7x10^3/uL (4.0-11.0) Red Blood Count 5.08x10^6/uL (3.50-5.40) Hemoglobin 14.2g/dL (12.0-15.5) Hematocrit 42.8% (36.0-47.0) Mean Corpuscular Volume 84fL (79-100) Mean Corpuscular Hemoglobin 28pg (25-35) Mean Corpuscular Hemoglobin Concent 33g/dL (31-37) Red Cell Distribution Width 13.0% (11.5-14.5) Platelet Count 220x10^3/uL (140-400) Sodium Level 135mmol/L (136-145) Potassium Level 4.2mmol/L (3.5-5.1) Chloride Level 99mmol/L (98-107) Carbon Dioxide Level 27mmol/L (21-32) Anion Gap 9 (6-14) Blood Urea Nitrogen 13mg/dL (7-20) Creatinine 0.7mg/dL (0.6-1.0) Estimated GFR (Cockcroft-Gault) 93.6 BUN/Creatinine Ratio 19 (6-20) Glucose Level 126mg/dL (70-99) Calcium Level 8.7mg/dL (8.5-10.1) Total Bilirubin 0.5mg/dL (0.2-1.0) Aspartate Amino Transf (AST/SGOT) 17U/L (15-37) Alanine Aminotransferase (ALT/SGPT) 38U/L (14-59) Alkaline Phosphatase 83U/L (46-116) Total Protein 6.6g/dL (6.4-8.2) Albumin 2.5g/dL (3.4-5.0) Albumin/Globulin Ratio 0.6 (1.0-1.7) Objective Assessment POD#1 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 Overall doing well. Minimal chest tube output and no air leak. Complains of pain around the chest tube site. Also appears relatively anxious. On 5 L nasal cannula. Plan Plan of Care Keep chest tube to suction for one more day Will likely remove chest tube tomorrow Analgesia The patient was reassured. I explained that she could potentially go home tomorrow if she is off the oxygen Aggressive ambulation, pulmonary toilet and incentive spirometry Wean oxygen Leukocytosis is reactive and expected owing to the intense inflammatory reaction caused by the talc pleurodesis. Fevers, if occur, are also normal and expected after this procedure for the first 24-48 hours. Please give Tylenol if she spikes a temperature. No need for blood cultures. LUDWIG HOPSON MD Oct 24, 2016 09:53
[2016-10-24] MEDS: GUAIFENESIN ER 600 MG TABLET.ER PO SCH ×2 (10:00→21:52)
[2016-10-24] MEDS: LEVETIRACETAM 250 MG TABLET. PO SCH (10:00)
[2016-10-24] MEDS: LEVOTHYROXINE 50 MCG TABLET PO SCH (10:00)
[2016-10-24 10:43] VITALS: BP 146/89
--- NOTE | 2016-10-24 14:16 | PDOC ---
PROGRESS NOTES Assessment Assessment Seizure Pneumothorax. Bilateral pleural effusion. Smoking, quit 8 days ago ADHD Anxiety RECOMMENDATIONS/PLAN: Resume Keppra, change to 500 mg bid. Treat medical diseases. EEG on 10/22: No seizure activity. 6-8 Hz/sec. PAST MEDICAL AND SURGICAL HISTORY: Please see H&P ALLERGY: PCN Naproxen MEDICATIONS: Refer to MAR REVIEW OF SYSTEMS: Constitutional: No cachexia. Head: No recent traumatic brain or head injury. Skin: No edema, or rash. Ear: No infection, tinnitus. Eyes: No vision loss, or diplopia. Nose: No bleeding or purulent discharges. Hearing: No hearing decrease. Neck: No recent injury. Breast: No history of cancer, masses, or discharges. Cardiac: No NM, arrhythmia Pulmonary: Smoking GI: No GI Ulcer, GI bleeding Urinary/genital: UTI. Endocrine: No cousin face, craniofacial dysmorphism, polydactyly. Skeletomuscular: No muscular atrophy, deformity. Neurological: see HP. Psychiatric: Denies drug use/abuse. Otherwise, not [id number] review of systems. PHYSICAL EXAMINATION: General appearance in subacute distress. HEENT: Normocephalic and nontraumatic. Eyes, nose, ears, and throat are unremarkable. Hearing decrease. Neck is supple. No lymphadenopathy. No bruits are heard over the carotid artery. No Crepitus. Cardiovascular: S1, S2, regular rate and rhythm. Pulmonary: decreased to auscultation bilaterally. Abdomen: Bowel sounds are positive. Abdomen is soft, nontender, and nondistended. Extremities: No rash, lesions, or edema. No restriction of range of motion NEUROLOGICAL EXAMINATION: Alert. Oriented to time, place and person. PERRL. EOMI. CN: no focal findings. Muscle tone: within normal. Muscle strength: 5- DTR: 2 Plantar reflex: Flexor response bilaterally Gait: not examined in bed. Sensory exam: no abnormal findings. No cerebellar signs elicited. F-T-N test accurate. Objective Objective Vital Signs Date Time Temp Pulse Resp B/P Pulse Ox O2 Delivery O2 Flow Rate FiO2 10/24/16 13:49 18 92 Nasal Cannula 5.0 10/24/16 10:43 98.1 121 146/89 98.1 Intake and Output 10/24/16 07:00 Intake Total 2330 ml Output Total 2090 ml Balance 240 ml Intake Oral 1330 ml Other 1000 ml Output Urine Total 1600 ml Chest Tube Drainage Total 240 ml Estimated Blood Loss 250 ml Vitals Signs Vitals VS - Last 72 Hours, by Label Date Time Temp Pulse Resp B/P Pulse Ox O2 Delivery O2 Flow Rate FiO2 10/24/16 13:49 18 92 Nasal Cannula 5.0 10/24/16 12:09 18 92 Nasal Cannula 5.0 10/24/16 11:43 18 92 Nasal Cannula 5.0 10/24/16 11:13 18 92 Nasal Cannula 5.0 10/24/16 11:13 18 92 Nasal Cannula 5.0 10/24/16 10:43 98.1 121 16 146/89 92 Nasal Cannula 98.1 10/24/16 07:55 92 Nasal Cannula 5.0 10/24/16 07:53 Nasal Cannula 5.0 10/24/16 07:32 22 89 Nasal Cannula 5.0 10/24/16 07:29 89 5.0 10/24/16 07:03 98.2 120 16 138/91 90 Nasal Cannula 98.2 10/24/16 04:09 91 Nasal Cannula 5.0 10/24/16 02:22 98.9 120 18 137/86 92 Nasal Cannula 4.0 98.9 10/24/16 01:57 Nasal Cannula 10/24/16 01:53 91 4.0 10/23/16 20:07 91 Nasal Cannula 5.0 10/23/16 19:08 98.1 106 20 142/91 90 Nasal Cannula 3.0 98.1 10/23/16 18:16 109 20 146/90 90 Nasal Cannula 4.0 10/23/16 18:00 103 20 138/86 90 Nasal Cannula 4.0 10/23/16 17:45 104 20 134/84 90 Nasal Cannula 4.0 10/23/16 17:30 101 20 134/88 90 Nasal Cannula 4.0 10/23/16 17:17 21 92 Nasal Cannula 4.0 10/23/16 17:10 98 20 150/89 91 Nasal Cannula 4 10/23/16 16:55 100 21 140/87 92 Nasal Cannula 4 10/23/16 16:54 21 91 Nasal Cannula 4.0 10/23/16 16:40 102 21 134/92 92 Nasal Cannula 4 10/23/16 16:25 100 22 101/78 91 Nasal Cannula 4 10/23/16 16:23 22 88 Nasal Cannula 4.0 10/23/16 16:10 88 23 126/82 88 Nasal Cannula 4 10/23/16 16:00 Nasal Cannula 4 10/23/16 16:00 21 87 Nasal Cannula 3.0 10/23/16 15:55 84 22 145/88 88 Nasal Cannula 4 10/23/16 15:42 22 87 Simple Mask 10.0 10/23/16 15:40 84 23 148/95 87 Nasal Cannula 3 10/23/16 15:32 23 92 Simple Mask 10.0 10/23/16 15:25 98.1 90 21 159/93 86 Simple Mask 6 98.1 10/23/16 15:25 Mask 10 10/23/16 13:00 72 20 117/81 93 Nasal Cannula 3.0 10/23/16 12:40 26 95 Nasal Cannula 3.0 10/23/16 12:12 24 99 Nasal Cannula 3.0 10/23/16 12:00 Nasal Cannula 3.0 10/23/16 12:00 98.8 92 16 111/78 99 Nasal Cannula 3.0 98.8 10/23/16 11:00 72 16 113/60 99 Nasal Cannula 3.0 10/23/16 10:00 87 16 119/76 94 Nasal Cannula 3.0 10/23/16 09:28 94 Nasal Cannula 3.0 10/23/16 09:13 94 20 118/79 93 Nasal Cannula 3.0 10/23/16 09:08 30 95 Nasal Cannula 3.0 10/23/16 08:09 Nasal Cannula 3.0 10/23/16 08:06 89 18 108/84 92 Nasal Cannula 3.0 10/23/16 07:00 98.4 86 24 100/71 94 Nasal Cannula 3.0 98.4 Laboratory Laboratory Laboratory Tests Test 10/24/16 03:42 White Blood Count 18.7x10^3/uL (4.0-11.0) Red Blood Count 5.08x10^6/uL (3.50-5.40) Hemoglobin 14.2g/dL (12.0-15.5) Hematocrit 42.8% (36.0-47.0) Mean Corpuscular Volume 84fL (79-100) Mean Corpuscular Hemoglobin 28pg (25-35) Mean Corpuscular Hemoglobin Concent 33g/dL (31-37) Red Cell Distribution Width 13.0% (11.5-14.5) Platelet Count 220x10^3/uL (140-400) Sodium Level 135mmol/L (136-145) Potassium Level 4.2mmol/L (3.5-5.1) Chloride Level 99mmol/L (98-107) Carbon Dioxide Level 27mmol/L (21-32) Anion Gap 9 (6-14) Blood Urea Nitrogen 13mg/dL (7-20) Creatinine 0.7mg/dL (0.6-1.0) Estimated GFR (Cockcroft-Gault) 93.6 BUN/Creatinine Ratio 19 (6-20) Glucose Level 126mg/dL (70-99) Calcium Level 8.7mg/dL (8.5-10.1) Total Bilirubin 0.5mg/dL (0.2-1.0) Aspartate Amino Transf (AST/SGOT) 17U/L (15-37) Alanine Aminotransferase (ALT/SGPT) 38U/L (14-59) Alkaline Phosphatase 83U/L (46-116) Total Protein 6.6g/dL (6.4-8.2) Albumin 2.5g/dL (3.4-5.0) Albumin/Globulin Ratio 0.6 (1.0-1.7) Medication Medications Current Medications Bupivacaine HCl (Sensorcaine Mpf 0.5%) 30 ml STK-MED ONCE .ROUTE Last administered on 10/23/16 15:00; Start 10/23/16 at 14:18; Stop 10/23/16 at 14:19 ; Status DC Desflurane (Suprane) 90 ml STK-MED ONCE IH ; Start 10/23/16 at 15:24; Stop 10/23 at 15:25; Status DC Glycopyrrolate (Robinul) 1 mg STK-MED ONCE .ROUTE ; Start 10/23/16 at 14:50; Stop 10/23/16 at 14:51; Status DC Hydromorphone HCl (Dilaudid) 1 mg PRN Q2HR PRN IV SEVERE PAIN Last administered on 10/24/16 13:49; Start 10/23/16 at 22:45 Lidocaine HCl 20 ml STK-MED ONCE .ROUTE Last administered on 1/24/17at 15:00; Start 10/23/16 at 14:19; Stop 10/23/16 at 14:20; Status DC Neostigmine Methylsulfate 5 mg STK-MED ONCE .ROUTE ; Start 10/23/16 at 14:49; Stop 10/23/16 at 14:50; Status DC Talc (Sclerosol) 4 gm 1X ONCE IPL Last administered on 10/23/16 14:38; Start 10/23/16 at 15:00; Stop 10/23/16 at 15:01; Status DC Talc (Sclerosol) 4 gm 1X ONCE IPL Last administered on 10/23/16t 14:50; Start 10/23/16 at 15:00; Stop 10/23/16 at 15:01; Status DC Zolpidem Tartrate (Ambien) 5 mg PRN QHS PRN PO ; Start 10/23/16 at 22:47 Comment Review of Relevant I have reviewed the following items bry (where applicable) has been applied. ALIYAH MADRID MD Oct 24, 2016 14:15
[2016-10-24 15:00] VITALS: BP 117/76
--- NOTE | 2016-10-24 15:34 | PDOC ---
PULMONARY PROGRESS NOTES Subjective no soa post -op pain Vitals Vital Signs Date Time Temp Pulse Resp B/P Pulse Ox O2 Delivery O2 Flow Rate FiO2 10/24/16 15:00 98.0 116 20 117/76 92 98.0 10/24/16 14:26 Nasal Cannula 5.0 General: Alert, No acute distress Lungs: Other (decrease bs ) Cardiovascular: S1 Abdomen: Soft Neuro Exam: Alert Extremities: No Edema Skin: Warm Labs Laboratory Tests Test 10/23/16 05:40 10/24/16 03:42 White Blood Count 8.2x10^3/uL (4.0-11.0) 18.7x10^3/uL (4.0-11.0) Red Blood Count 4.70x10^6/uL (3.50-5.40) 5.08x10^6/uL (3.50-5.40) Hemoglobin 13.1g/dL (12.0-15.5) 14.2g/dL (12.0-15.5) Hematocrit 39.6% (36.0-47.0) 42.8% (36.0-47.0) Mean Corpuscular Volume 84fL (79-100) 84fL (79-100) Mean Corpuscular Hemoglobin 28pg (25-35) 28pg (25-35) Mean Corpuscular Hemoglobin Concent 33g/dL (31-37) 33g/dL (31-37) Red Cell Distribution Width 13.1% (11.5-14.5) 13.0% (11.5-14.5) Platelet Count 186x10^3/uL (140-400) 220x10^3/uL (140-400) Neutrophils (%) (Auto) 73% (31-73) Lymphocytes (%) (Auto) 16% (24-48) Monocytes (%) (Auto) 6% (0-9) Eosinophils (%) (Auto) 4% (0-3) Basophils (%) (Auto) 1% (0-3) Neutrophils # (Auto) 6.0x10^3uL (1.8-7.7) Lymphocytes # (Auto) 1.3x10^3/uL (1.0-4.8) Monocytes # (Auto) 0.5x10^3/uL (0.0-1.1) Eosinophils # (Auto) 0.3x10^3/uL (0.0-0.7) Basophils # (Auto) 0.1x10^3/uL (0.0-0.2) Sodium Level 141mmol/L (136-145) 135mmol/L (136-145) Potassium Level 4.2mmol/L (3.5-5.1) 4.2mmol/L (3.5-5.1) Chloride Level 105mmol/L (98-107) 99mmol/L (98-107) Carbon Dioxide Level 29mmol/L (21-32) 27mmol/L (21-32) Anion Gap 7 (6-14) 9 (6-14) Blood Urea Nitrogen 14mg/dL (7-20) 13mg/dL (7-20) Creatinine 0.7mg/dL (0.6-1.0) 0.7mg/dL (0.6-1.0) Estimated GFR (Cockcroft-Gault) 93.6 93.6 BUN/Creatinine Ratio 20 (6-20) 19 (6-20) Glucose Level 98mg/dL (70-99) 126mg/dL (70-99) Calcium Level 8.3mg/dL (8.5-10.1) 8.7mg/dL (8.5-10.1) Total Bilirubin 0.4mg/dL (0.2-1.0) 0.5mg/dL (0.2-1.0) Aspartate Amino Transf (AST/SGOT) 18U/L (15-37) 17U/L (15-37) Alanine Aminotransferase (ALT/SGPT) 37U/L (14-59) 38U/L (14-59) Alkaline Phosphatase 67U/L (46-116) 83U/L (46-116) Total Protein 5.4g/dL (6.4-8.2) 6.6g/dL (6.4-8.2) Albumin 2.5g/dL (3.4-5.0) 2.5g/dL (3.4-5.0) Albumin/Globulin Ratio 0.9 (1.0-1.7) 0.6 (1.0-1.7) Thyroid Stimulating Hormone (TSH) 3.969uIU/mL (0.358-3.74) Laboratory Tests Test 10/24/16 03:42 White Blood Count 18.7x10^3/uL (4.0-11.0) Red Blood Count 5.08x10^6/uL (3.50-5.40) Hemoglobin 14.2g/dL (12.0-15.5) Hematocrit 42.8% (36.0-47.0) Mean Corpuscular Volume 84fL (79-100) Mean Corpuscular Hemoglobin 28pg (25-35) Mean Corpuscular Hemoglobin Concent 33g/dL (31-37) Red Cell Distribution Width 13.0% (11.5-14.5) Platelet Count 220x10^3/uL (140-400) Sodium Level 135mmol/L (136-145) Potassium Level 4.2mmol/L (3.5-5.1) Chloride Level 99mmol/L (98-107) Carbon Dioxide Level 27mmol/L (21-32) Anion Gap 9 (6-14) Blood Urea Nitrogen 13mg/dL (7-20) Creatinine 0.7mg/dL (0.6-1.0) Estimated GFR (Cockcroft-Gault) 93.6 BUN/Creatinine Ratio 19 (6-20) Glucose Level 126mg/dL (70-99) Calcium Level 8.7mg/dL (8.5-10.1) Total Bilirubin 0.5mg/dL (0.2-1.0) Aspartate Amino Transf (AST/SGOT) 17U/L (15-37) Alanine Aminotransferase (ALT/SGPT) 38U/L (14-59) Alkaline Phosphatase 83U/L (46-116) Total Protein 6.6g/dL (6.4-8.2) Albumin 2.5g/dL (3.4-5.0) Albumin/Globulin Ratio 0.6 (1.0-1.7) Medications Active Scripts Medications Dose Route/Sig Days Date Category NICODERM CQ 21mg (Nicotine) 1 Each Patch.td24 1 Patch TP DAILY 10/21/16 Reported Singulair Tablet (Montelukast Sodium) 10 Mg Tablet 10 Mg PO HS 10/21/16 Reported Hydromorphone 1 Mg/Ml Syringe (Hydromorphone Hcl) 1 Mg/1 Ml Disp.syrin 1 Mg IJ PRN Q2HRS PRN 10/21/16 Reported Hydrocodone-Apap 5-325 (Hydrocodone Bit/Acetaminophen) 1 Each Tablet 1 Tab PO PRN Q4HRS PRN 10/21/16 Reported Mucinex (Guaifenesin) 600 Mg Tablet.er 1 Tab PO BID 10/21/16 Reported Budesonide 0.5 Mg/2 Ml Ampul.neb 1 Vial NEB BID 10/21/16 Reported Albuterol Sulfate Conc Neb Soln (Albuterol Sulfate) 2.5 Mg/0.5 Ml Vial.neb 2.5 Mg NEB 10/21/16 Reported Impression . 1. Acute Hypoxemic Respiratory Failure due to PTX 2. Left Pneumothorax. s/p left VAT, wedge resection/ pleurodesis 10/23 3. Left Apical Infiltrate/Right LL infiltrate 4. Tobacco Dependency 5. Seizure DO 6. Anxiety, PTSD, Depression 7. Mild PCM Plan . 1. s/p VATS/ small left PTX, atelectasis left lung 2. Left Chest tube to suction 3. Continue Bronchodilatory therapy 4. Pulmonary Infiltrate POA in QUITA, RLL - will continue Abx therapy 5. Pain control 6. Aggressive IS 7. Seizure Tx per Neurology RIN MARTEL MD Oct 24, 2016 15:34
[2016-10-24 19:00] VITALS: BP 122/82
[2016-10-24] MEDS: LEVETIRACETAM 500 MG TABLET PO SCH (21:52)
[2016-10-24] MEDS: MONTELUKAST SODIUM 10 MG TABLET. PO SCH (21:53)
[2016-10-24 23:00] VITALS: BP 143/81
--- NOTE | 2016-10-24 23:13 | CONS ---
DATE OF CONSULTATION: 10/24/2016 PATIENT'S ROOM: 210. REQUESTING PHYSICIAN: Dr. Lo. REASON FOR CONSULTATION: Need for antibiotics. HISTORY OF PRESENT ILLNESS: The patient is a 28-year-old female with a history of seizures as well as tobacco abuse and hyperactivity disorder. She presented to [facility] with complaints of chest pain as well as dyspnea. No fevers, chills or sweats, but she was found to have a pneumothorax. Chest tube was placed on suction. Chest tube was subsequently removed, but then she had increased dyspnea. On repeat imaging she had recurrent pneumothorax. She was transferred to [facility] for further care and evaluation. She had been on levofloxacin since her admission at least 10/17/2016. Subsequently has been taken to the operating room by ____ on the and underwent a left video-assisted thoracoscopy surgery, upper lobe resection x 3. She received vancomycin preoperatively, continued levofloxacin. She has not had any positive culture results. She did receive dexamethasone on 10/23/2016. Currently she is siting upright in bed. She kind of aches all over, prefers not to move. She denies feeling ill prior to developing chest pain and dyspnea that brought her to the hospital. Currently, she has no fevers, chills or sweats. She has no gross headaches, no sinus congestion, sore throat or cough. States her bowels have ____ working. Denies any complications with UTIs or urinary symptoms. PAST MEDICAL HISTORY: Positive for asthma, COPD, seizure disorder, ADHD, post-traumatic stress disorder, anxiety, history of hypoglycemia as well as the above mentioned pneumothorax. PAST SURGICAL HISTORY: Positive for cholecystectomy, D and C and tubal ligation. REVIEW OF SYSTEMS: Again, otherwise negative except for mentioned above. ALLERGIES: Listed PENICILLIN, but she believes she has had amoxicillin and she knows she has taken cephalexin without signs of complications. Ibuprofen is also listed. SOCIAL HISTORY: She is a longtime smoker, although she states she has not smoked for the last 8 days. She is . No alcohol. FAMILY HISTORY: Oldest brother of a diabetic complication. She has a sister with epilepsy. CURRENT MEDICATIONS: Include levofloxacin. She had a dose of vancomycin perioperatively as well as a dose of dexamethasone. She is on Pristiq, esmolol, ____, Keppra. Other meds are available and have been reviewed in the chart. PHYSICAL EXAMINATION: VITAL SIGNS: She has been afebrile, temperature ____, pulse 120, respirations 22, blood pressure 138/91, satting 92% on 5 liters. CONSTITUTIONAL: She is alert. She is cooperative. She is in no acute distress. HEENT: Pupils are equal and reactive. Oral cavity, pharynx is clear. She has dentures. NECK: Supple, no JVD. LUNGS: Decreased at the bases. Chest tube without complications. HEART: S1, S2. ABDOMEN: Obese, soft. Decreased bowel sounds, nontender. EXTREMITIES: No clubbing or cyanosis. No gross edema. SKIN: Without generalized signs of rash. IV site is clean. NEUROLOGIC: She moved all extremities. Affect was somewhat flat. LABORATORY DATA: White count 18.7, hemoglobin 14.2, platelets of 220, creatinine 0.7, glucose 126. Normal liver function study tests. MRSA screen was negative. HIV antibody is negative. There are no microbiology results. Chest x-ray: Small persistent left pneumothorax, unchanged left upper lobe, right lower lobe infiltrate atelectasis/infiltrate. Partial atelectasis infiltrate developed on the left lower lobe over last several days. IMPRESSION: 1. Spontaneous pneumothorax, status post VATS procedure on the . 2. Leukocytosis postop as well as post-dexamethasone on the . 3. Penicillin allergy, has tolerated Keflex and likely amoxicillin. 4. Tobacco abuse. RECOMMENDATIONS: No need for any further antibiotics. From an ID standpoint at this point currently we will discontinue levofloxacin. Thank you for asking me to participate in the patient's care. Should you have any questions, please do not hesitate to contact me. GOLDIE WALLACE MD DR: LUIZ/analy JOB#: [id number] / [id number]
--- NOTE | 2016-10-25 00:21 | PN ---
DATE: 10/24/2016 SUBJECTIVE: The patient is resting, slightly propped up in her recliner, in no apparent distress. She states she is tired as she worked with physical therapy twice today. She apparently underwent a left upper lobe wedge resection and has had a chest tube in place, Pleur-Evac. ____ however, the patient denied any chest pain, shortness of breath, cough, phlegm or hemoptysis. Denied any chills, rigors or fever. PHYSICAL EXAMINATION: GENERAL: When I examined her, she looked well and was clearly in no apparent respiratory distress, pale, but no jaundice, cyanosis or thyromegaly. No jugular venous distention. No limb edema. VITAL SIGNS: Her heart rate was 121, blood pressure was 146/89, temperature was 98, respiratory rate was 18 and oxygen saturation was 92% on 5 liters of oxygen by nasal cannula. HEAD, EYES, EARS, NOSE AND THROAT: Showed she is normocephalic, atraumatic. NECK: Supple. HEART: Showed normal first and second heart sounds with no gallop, rub or murmur. CHEST: Clear to auscultation. No crepitation or rhonchi. ABDOMEN: Distended, soft, nontender. No guarding or rigidity. No organomegaly. Hernial orifices intact. Bowel sounds normal. NEUROLOGIC: She is awake, alert, responding appropriately. Cranial nerves intact. She moves extremities without difficulty. She ambulates without assistance or assistive devices. Her intake over the last 24 hours was 2300, output was 2100. LABORATORY DATA: Her lab work this morning showed a white cell count of 18,700, hemoglobin 14, hematocrit 42, MCV 84 and platelet count ____. Serum sodium was 135, potassium 4.2, chloride 99, bicarbonate 27, anion gap of 9, BUN 13, creatinine 0.7, estimated GFR was 94 mL per minute. Her glucose was 126. Calcium was 8.7. Total bilirubin, AST, ALT, alkaline phosphatase were normal. Total protein was 6.6, albumin 2.5 and her TSH was 3.969. ASSESSMENT: 1. Recurrent pneumothorax for which the patient underwent video-assisted thoracoscopic surgery and left upper segment resection, left upper lobe infiltrate and right lower lobe infiltrate. 2. Acute hypoxic respiratory failure due to pneumothorax. 3. Seizure disorder. 4. Anxiety and posttraumatic stress disorder as well as depression, ADHD and hypothyroidism. PLAN: Continue with the current plan of management including Keppra 500 mg twice a day, pain medication in the form of hydromorphone. Continue with antidepressant as well as Synthroid. Continue with physical and occupational therapy. NICHOLAS DEJESUS MD DR: KIN/analy JOB#: [id number] / [id number]
[2016-10-25] MEDS: HYDROCODONE/APAP 5/325MG TABLET. PO PRN ×5 (02:18→21:48)
[2016-10-25] MEDS: ALBUTEROL SULFATE 2.5 MG/3 ML NEBU. NEB PRN ×2 (02:39→08:21)
[2016-10-25 04:00] VITALS: BP 122/69
[2016-10-25] MEDS: HYDROMORPHONE 2 MG/ML VIAL. IV PRN ×6 (04:17→19:42)
[2016-10-25 06:07] LABS: HEMATOCRIT 40.7 % (36.0-47.0); HEMOGLOBIN 13.7 g/dL (12.0-15.5); RED BLOOD COUNT 4.94 x10^6/uL (3.50-5.40); RED CELL DISTRIBUTION WIDTH 13.2 % (11.5-14.5); WHITE BLOOD COUNT 17.8 x10^3/uL (4.0-11.0)
[2016-10-25] MEDS: LEVOTHYROXINE 50 MCG TABLET PO SCH (06:21)
[2016-10-25 06:38] LABS: ALBUMIN 2.3 g/dL (3.4-5.0); ALBUMIN/GLOBULIN RATIO 0.6 (1.0-1.7); CALCIUM 8.5 mg/dL (8.5-10.1); CREATININE 0.8 mg/dL (0.6-1.0); GFR 80.3; POTASSIUM 3.8 mmol/L (3.5-5.1); TOTAL BILIRUBIN 0.7 mg/dL (0.2-1.0); TOTAL PROTEIN 6.3 g/dL (6.4-8.2)
[2016-10-25 07:19] VITALS: BP 128/73
--- NOTE | 2016-10-25 07:58 | RAD ---
Indication: Pneumothorax. Time of exam 0548 hours. Correlation is made with prior chest from 10/24/2016. Left chest tube remains in place. Left sided infiltrate and pleural fluid is unchanged. No significant pneumothorax is seen. The heart size is stable. Impression: Stable chest since exam one day earlier.
[2016-10-25] MEDS: BUDESONIDE 0.5 MG/2 ML NEBU NEB SCH ×2 (08:21→16:18)
[2016-10-25] MEDS: LEVETIRACETAM 500 MG TABLET PO SCH ×2 (08:59→20:00)
[2016-10-25] MEDS: NICOTINE 21MG PATCH. TD SCH (08:59)
[2016-10-25] MEDS: GUAIFENESIN ER 600 MG TABLET.ER PO SCH ×2 (08:59→20:00)
[2016-10-25] MEDS: DESVENLAFAXINE 50 MG TAB.ER.24H. PO SCH (08:59)
[2016-10-25] MEDS ORDERED: PHENOL ORAL SPRAY 177ML BOTTLE. PO PRN (10:30)
[2016-10-25 10:46] VITALS: BP 126/52
--- NOTE | 2016-10-25 11:32 | PDOC ---
PULMONARY PROGRESS NOTES Subjective no soa post -op pain Vitals Vital Signs Date Time Temp Pulse Resp B/P Pulse Ox O2 Delivery O2 Flow Rate FiO2 10/25/16 11:28 20 86 Nasal Cannula 5.0 10/25/16 10:46 98.1 114 126/52 98.1 General: Alert, No acute distress Lungs: Other (decrease bs ) Cardiovascular: S1 Abdomen: Soft Neuro Exam: Alert Extremities: No Edema Skin: Warm Labs Laboratory Tests Test 10/24/16 03:42 10/25/16 05:25 White Blood Count 18.7x10^3/uL (4.0-11.0) 17.8x10^3/uL (4.0-11.0) Red Blood Count 5.08x10^6/uL (3.50-5.40) 4.94x10^6/uL (3.50-5.40) Hemoglobin 14.2g/dL (12.0-15.5) 13.7g/dL (12.0-15.5) Hematocrit 42.8% (36.0-47.0) 40.7% (36.0-47.0) Mean Corpuscular Volume 84fL (79-100) 82fL (79-100) Mean Corpuscular Hemoglobin 28pg (25-35) 28pg (25-35) Mean Corpuscular Hemoglobin Concent 33g/dL (31-37) 34g/dL (31-37) Red Cell Distribution Width 13.0% (11.5-14.5) 13.2% (11.5-14.5) Platelet Count 220x10^3/uL (140-400) 195x10^3/uL (140-400) Sodium Level 135mmol/L (136-145) 134mmol/L (136-145) Potassium Level 4.2mmol/L (3.5-5.1) 3.8mmol/L (3.5-5.1) Chloride Level 99mmol/L (98-107) 99mmol/L (98-107) Carbon Dioxide Level 27mmol/L (21-32) 29mmol/L (21-32) Anion Gap 9 (6-14) 6 (6-14) Blood Urea Nitrogen 13mg/dL (7-20) 10mg/dL (7-20) Creatinine 0.7mg/dL (0.6-1.0) 0.8mg/dL (0.6-1.0) Estimated GFR (Cockcroft-Gault) 93.6 80.3 BUN/Creatinine Ratio 19 (6-20) 13 (6-20) Glucose Level 126mg/dL (70-99) 117mg/dL (70-99) Calcium Level 8.7mg/dL (8.5-10.1) 8.5mg/dL (8.5-10.1) Total Bilirubin 0.5mg/dL (0.2-1.0) 0.7mg/dL (0.2-1.0) Aspartate Amino Transf (AST/SGOT) 17U/L (15-37) 13U/L (15-37) Alanine Aminotransferase (ALT/SGPT) 38U/L (14-59) 31U/L (14-59) Alkaline Phosphatase 83U/L (46-116) 82U/L (46-116) Total Protein 6.6g/dL (6.4-8.2) 6.3g/dL (6.4-8.2) Albumin 2.5g/dL (3.4-5.0) 2.3g/dL (3.4-5.0) Albumin/Globulin Ratio 0.6 (1.0-1.7) 0.6 (1.0-1.7) Laboratory Tests Test 10/25/16 05:25 White Blood Count 17.8x10^3/uL (4.0-11.0) Red Blood Count 4.94x10^6/uL (3.50-5.40) Hemoglobin 13.7g/dL (12.0-15.5) Hematocrit 40.7% (36.0-47.0) Mean Corpuscular Volume 82fL (79-100) Mean Corpuscular Hemoglobin 28pg (25-35) Mean Corpuscular Hemoglobin Concent 34g/dL (31-37) Red Cell Distribution Width 13.2% (11.5-14.5) Platelet Count 195x10^3/uL (140-400) Sodium Level 134mmol/L (136-145) Potassium Level 3.8mmol/L (3.5-5.1) Chloride Level 99mmol/L (98-107) Carbon Dioxide Level 29mmol/L (21-32) Anion Gap 6 (6-14) Blood Urea Nitrogen 10mg/dL (7-20) Creatinine 0.8mg/dL (0.6-1.0) Estimated GFR (Cockcroft-Gault) 80.3 BUN/Creatinine Ratio 13 (6-20) Glucose Level 117mg/dL (70-99) Calcium Level 8.5mg/dL (8.5-10.1) Total Bilirubin 0.7mg/dL (0.2-1.0) Aspartate Amino Transf (AST/SGOT) 13U/L (15-37) Alanine Aminotransferase (ALT/SGPT) 31U/L (14-59) Alkaline Phosphatase 82U/L (46-116) Total Protein 6.3g/dL (6.4-8.2) Albumin 2.3g/dL (3.4-5.0) Albumin/Globulin Ratio 0.6 (1.0-1.7) Medications Active Scripts Medications Dose Route/Sig Days Date Category NICODERM CQ 21mg (Nicotine) 1 Each Patch.td24 1 Patch TP DAILY 10/21/16 Reported Singulair Tablet (Montelukast Sodium) 10 Mg Tablet 10 Mg PO HS 10/21/16 Reported Hydromorphone 1 Mg/Ml Syringe (Hydromorphone Hcl) 1 Mg/1 Ml Disp.syrin 1 Mg IJ PRN Q2HRS PRN 10/21/16 Reported Hydrocodone-Apap 5-325 (Hydrocodone Bit/Acetaminophen) 1 Each Tablet 1 Tab PO PRN Q4HRS PRN 10/21/16 Reported Mucinex (Guaifenesin) 600 Mg Tablet.er 1 Tab PO BID 10/21/16 Reported Budesonide 0.5 Mg/2 Ml Ampul.neb 1 Vial NEB BID 10/21/16 Reported Albuterol Sulfate Conc Neb Soln (Albuterol Sulfate) 2.5 Mg/0.5 Ml Vial.neb 2.5 Mg NEB 10/21/16 Reported Impression . 1. Acute Hypoxemic Respiratory Failure due to PTX 2. Left Pneumothorax. s/p left VAT, wedge resection/ pleurodesis 10/23 3. Left Apical Infiltrate/Right LL infiltrate, improving 4. Tobacco Dependency 5. Seizure DO 6. Anxiety, PTSD, Depression 7. Mild PCM Plan . 1. s/p VATS/ No definite PTX seen today, no air leak ,atelectasis left /right base 2. Left Chest tube to suction 3. Continue Bronchodilatory therapy 5. Pain control 6. Aggressive IS 7. Seizure Tx per Neurology RIN MARTEL MD Oct 25, 2016 11:31
--- NOTE | 2016-10-25 13:38 | PDOC ---
PROGRESS NOTES Assessment Assessment Seizure Pneumothorax. Bilateral pleural effusion. Smoking, quit 8 days ago ADHD Anxiety RECOMMENDATIONS/PLAN: Resumed Keppra 500 mg bid. Treat medical diseases. OT/PT. EEG on 10/22: No seizure activity. 6-8 Hz/sec. PAST MEDICAL AND SURGICAL HISTORY: Please see H&P ALLERGY: PCN Naproxen MEDICATIONS: Refer to MAR REVIEW OF SYSTEMS: Constitutional: No cachexia. Head: No recent traumatic brain or head injury. Skin: No edema, or rash. Ear: No infection, tinnitus. Eyes: No vision loss, or diplopia. Nose: No bleeding or purulent discharges. Hearing: No hearing decrease. Neck: No recent injury. Breast: No history of cancer, masses, or discharges. Cardiac: No CA, arrhythmia Pulmonary: Smoking GI: No GI Ulcer, GI bleeding Urinary/genital: UTI. Endocrine: No cousin face, craniofacial dysmorphism, polydactyly. Skeletomuscular: No muscular atrophy, deformity. Neurological: see HP. Psychiatric: Denies drug use/abuse. Otherwise, not [id number] review of systems. PHYSICAL EXAMINATION: General appearance is in subacute distress. HEENT: Normocephalic and nontraumatic. Eyes, nose, ears, and throat are unremarkable. Hearing decrease. Neck is supple. No lymphadenopathy. No bruits are heard over the carotid artery. No Crepitus. Cardiovascular: S1, S2, regular rate and rhythm. Pulmonary: decreased to auscultation bilaterally. Abdomen: Bowel sounds are positive. Abdomen is soft, nontender, and nondistended. Extremities: No rash, lesions, or edema. No restriction of range of motion NEUROLOGICAL EXAMINATION: Alert. Sitting in chair. Oriented to time, place and person. PERRL. EOMI. CN: no focal findings. Muscle tone: within normal. Muscle strength: 5- DTR: 2 Plantar reflex: Flexor response bilaterally Gait: not examined in chair. Sensory exam: no abnormal findings. No cerebellar signs elicited. F-T-N test accurate. Objective Objective Vital Signs Date Time Temp Pulse Resp B/P Pulse Ox O2 Delivery O2 Flow Rate FiO2 10/25/16 13:18 16 86 Nasal Cannula 5.0 10/25/16 10:46 98.1 114 126/52 98.1 Intake and Output 10/25/16 07:00 Intake Total 1040 ml Output Total 2700 ml Balance -1660 ml Intake Oral 1040 ml Output Urine Total 2600 ml Chest Tube Drainage Total 100 ml Vitals Signs Vitals VS - Last 72 Hours, by Label Date Time Temp Pulse Resp B/P Pulse Ox O2 Delivery O2 Flow Rate FiO2 10/25/16 13:18 16 86 Nasal Cannula 5.0 10/25/16 12:00 16 86 Nasal Cannula 5.0 10/25/16 11:28 20 86 Nasal Cannula 5.0 10/25/16 10:46 98.1 114 16 126/52 86 Nasal Cannula 98.1 10/25/16 10:00 18 92 Nasal Cannula 5.0 10/25/16 08:59 18 92 Nasal Cannula 5.0 10/25/16 08:57 18 92 Nasal Cannula 5.0 10/25/16 08:25 92 Nasal Cannula 5.0 10/25/16 08:24 92 Nasal Cannula 5.0 10/25/16 08:00 Nasal Cannula 5.0 10/25/16 07:19 98.2 112 16 128/73 91 Nasal Cannula 98.2 10/25/16 04:17 22 91 Nasal Cannula 5.0 10/25/16 04:00 99.0 141 22 122/69 89 Nasal Cannula 5.0 99.0 10/25/16 02:39 88 Nasal Cannula 5.0 10/25/16 02:18 22 90 Nasal Cannula 5.0 10/24/16 23:00 99.1 133 21 143/81 90 Nasal Cannula 5.0 99.1 10/24/16 21:53 20 90 Nasal Cannula 5.0 10/24/16 20:13 90 Nasal Cannula 5.0 10/24/16 20:00 Nasal Cannula 5.0 10/24/16 19:39 20 91 Nasal Cannula 5.0 10/24/16 19:39 20 91 Nasal Cannula 5.0 10/24/16 19:00 99.8 124 24 122/82 91 Nasal Cannula 5.0 99.8 10/24/16 17:15 18 92 Nasal Cannula 5.0 10/24/16 15:43 20 92 Nasal Cannula 5.0 10/24/16 15:00 98.0 116 20 117/76 92 98.0 10/24/16 13:49 18 92 Nasal Cannula 5.0 10/24/16 11:13 18 92 Nasal Cannula 5.0 10/24/16 11:13 18 92 Nasal Cannula 5.0 10/24/16 10:43 98.1 121 16 146/89 92 Nasal Cannula 98.1 10/24/16 07:55 92 Nasal Cannula 5.0 10/24/16 07:53 Nasal Cannula 5.0 10/24/16 07:32 22 89 Nasal Cannula 5.0 10/24/16 07:29 89 5.0 10/24/16 07:03 98.2 120 16 138/91 90 Nasal Cannula 98.2 Laboratory Laboratory Laboratory Tests Test 10/25/16 05:25 White Blood Count 17.8x10^3/uL (4.0-11.0) Red Blood Count 4.94x10^6/uL (3.50-5.40) Hemoglobin 13.7g/dL (12.0-15.5) Hematocrit 40.7% (36.0-47.0) Mean Corpuscular Volume 82fL (79-100) Mean Corpuscular Hemoglobin 28pg (25-35) Mean Corpuscular Hemoglobin Concent 34g/dL (31-37) Red Cell Distribution Width 13.2% (11.5-14.5) Platelet Count 195x10^3/uL (140-400) Sodium Level 134mmol/L (136-145) Potassium Level 3.8mmol/L (3.5-5.1) Chloride Level 99mmol/L (98-107) Carbon Dioxide Level 29mmol/L (21-32) Anion Gap 6 (6-14) Blood Urea Nitrogen 10mg/dL (7-20) Creatinine 0.8mg/dL (0.6-1.0) Estimated GFR (Cockcroft-Gault) 80.3 BUN/Creatinine Ratio 13 (6-20) Glucose Level 117mg/dL (70-99) Calcium Level 8.5mg/dL (8.5-10.1) Total Bilirubin 0.7mg/dL (0.2-1.0) Aspartate Amino Transf (AST/SGOT) 13U/L (15-37) Alanine Aminotransferase (ALT/SGPT) 31U/L (14-59) Alkaline Phosphatase 82U/L (46-116) Total Protein 6.3g/dL (6.4-8.2) Albumin 2.3g/dL (3.4-5.0) Albumin/Globulin Ratio 0.6 (1.0-1.7) Medication Medications Current Medications Levetiracetam (Keppra) 500 mg BID PO Last administered on 10/25/16t 08:59; Start 10/24/16 at 21:00 Throat Lozenges (Chloraseptic) 1 spray PRN Q2HR PRN PO SORE THROAT; Start 10/25 at 10:30 Comment Review of Relevant I have reviewed the following items bry (where applicable) has been applied. ALIYAH MADRID MD Oct 25, 2016 13:38
[2016-10-25] MEDS: POLYETHYLENE GLYCOL 3350 17 GM PACKET. PO SCH (14:24)
--- NOTE | 2016-10-25 14:35 | PDOC ---
Progress Note Subjective Subjective Doing well. Complains of pain around her chest tube site. Also appears anxious. Minimal chest tube output and no air leak. Chest x-ray looks great. 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, no focal neurologic deficit SKIN: No rash IV: ok Labs Lab Laboratory Tests Test 10/25/16 05:25 White Blood Count 17.8x10^3/uL (4.0-11.0) Red Blood Count 4.94x10^6/uL (3.50-5.40) Hemoglobin 13.7g/dL (12.0-15.5) Hematocrit 40.7% (36.0-47.0) Mean Corpuscular Volume 82fL (79-100) Mean Corpuscular Hemoglobin 28pg (25-35) Mean Corpuscular Hemoglobin Concent 34g/dL (31-37) Red Cell Distribution Width 13.2% (11.5-14.5) Platelet Count 195x10^3/uL (140-400) Sodium Level 134mmol/L (136-145) Potassium Level 3.8mmol/L (3.5-5.1) Chloride Level 99mmol/L (98-107) Carbon Dioxide Level 29mmol/L (21-32) Anion Gap 6 (6-14) Blood Urea Nitrogen 10mg/dL (7-20) Creatinine 0.8mg/dL (0.6-1.0) Estimated GFR (Cockcroft-Gault) 80.3 BUN/Creatinine Ratio 13 (6-20) Glucose Level 117mg/dL (70-99) Calcium Level 8.5mg/dL (8.5-10.1) Total Bilirubin 0.7mg/dL (0.2-1.0) Aspartate Amino Transf (AST/SGOT) 13U/L (15-37) Alanine Aminotransferase (ALT/SGPT) 31U/L (14-59) Alkaline Phosphatase 82U/L (46-116) Total Protein 6.3g/dL (6.4-8.2) Albumin 2.3g/dL (3.4-5.0) Albumin/Globulin Ratio 0.6 (1.0-1.7) Objective Assessment POD#2 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 Overall doing well. Minimal chest tube output and no air leak. Complains of pain around the chest tube site. Also appears relatively anxious. On 5 L nasal cannula. Plan Plan of Care Chest tube has been placed to waterseal. I will obtain a chest x-ray and if the lung remains expanded, the chest tube will be removed today. Removing the chest tube will help with her pain control and pulmonary toilet. She needs aggressive pulmonary toilet and ambulation. Once the chest tube has been removed, she can go home after she has been weaned off oxygen. Senokot and MiraLAX. She has not had a bowel movement in 6 days. LUDWIG HOPSON MD Oct 25, 2016 14:35
--- NOTE | 2016-10-25 15:02 | RAD ---
Portable chest, 10/25/2016, 2:42 PM: History: Follow-up pneumothorax, postop Comparison is made to the study from earlier the same day. A left chest tube remains in place. There is moderate persistent pleural thickening and patchy infiltrate in the left lung. There are surgical sutures in the left upper chest. No definite pneumothorax is seen. There is moderate unchanged right lower lobe atelectasis. No new abnormality is detected. IMPRESSION: No significant change since earlier in the day.
[2016-10-25 15:31] VITALS: BP 119/81
[2016-10-25] MEDS: ENOXAPARIN 40 MG/0.4 ML DISP.SYRIN. SQ SCH (16:48)
--- NOTE | 2016-10-25 17:01 | RAD ---
Portable chest, 10/25/2016, 4:30 PM: History: Chest tube removal Comparison is made to the study of earlier the same day at 2:42 PM. The left chest tube has been removed. There are unchanged pleural and parenchymal opacities in the left chest. No definite pneumothorax is seen. There is moderate ongoing right lower lobe atelectasis. The heart size and pulmonary vascularity are normal. IMPRESSION: 1. The left chest tube has been removed. 2. No other significant interval change.
[2016-10-25 19:50] VITALS: BP 120/86
[2016-10-25] MEDS ORDERED: DIPHENHYDRAMINE HCL 25 MG CAPSULE PO PRN (20:00)
[2016-10-25] MEDS: MONTELUKAST SODIUM 10 MG TABLET. PO SCH (20:00)
[2016-10-25] MEDS ORDERED: HYDROCODONE/APAP 5/325MG TABLET. PO PRN (20:00)
[2016-10-25] MEDS: SENNOSIDES/DOCUSATE 8.6/50MG TABLET. PO SCH (20:01)
[2016-10-25 23:22] VITALS: BP 104/67
[2016-10-26] MEDS: HYDROMORPHONE 2 MG/ML VIAL. IV PRN ×2 (00:48→06:38)
[2016-10-26 03:27] VITALS: BP 116/71
[2016-10-26] MEDS: HYDROCODONE/APAP 5/325MG TABLET. PO PRN ×5 (03:33→20:58)
--- NOTE | 2016-10-26 04:45 | PN ---
DATE: 10/24/2016 SUBJECTIVE: The patient is resting slightly propped up in her recliner, in no apparent distress. She has been up and about, participates with physical therapy. She apparently was seen by the thoracic surgeon and the plan is to repeat another chest x-ray and removal of the chest tube today. PHYSICAL EXAMINATION: GENERAL: When I examined her, she looked well and was clearly in no apparent respiratory distress, pale, but no jaundice, cyanosis or thyromegaly. No jugular venous distention. No limb edema. VITAL SIGNS: Her heart rate was 114, blood pressure 126/52, temperature was 98.5, respiratory rate was 16 and oxygen saturation was 92% on room air on 3-5 liters of oxygen. HEAD, EYES, EARS, NOSE AND THROAT: Showed normocephalic, atraumatic. NECK: Supple. HEART: Showed normal first and second heart sounds with no gallop, rub or murmur. CHEST: Shows central trachea, good chest expansion, air entry on the right side reduced expansion, reduced air entry on the left side. ABDOMEN: Distended, soft, nontender. No guarding or rigidity. No organomegaly. Hernial orifices intact. Bowel sounds normal. NEUROLOGIC: She was awake, alert, responding appropriately. Cranial nerves intact. She moves extremities without difficulty. She apparently has been participating in physical therapy, walking. PLAN: To continue with her current medications. Continue with physical therapy. NICHOLAS DEJESUS MD DR: KIN/analy JOB#: [id number] / [id number]
[2016-10-26 04:55] LABS: BASO # 0.1 x10^3/uL (0.0-0.2); BASO % 1 % (0-3); EOS % 2 % (0-3); HEMATOCRIT 37.8 % (36.0-47.0); HEMOGLOBIN 12.7 g/dL (12.0-15.5); LYMPH # 1.3 x10^3/uL (1.0-4.8); LYMPH % 8 % (24-48); MEAN CORPUSCULAR HEMOGLOBIN 28 pg (25-35); MEAN CORPUSCULAR HGB CONC 34 g/dL (31-37); MEAN CORPUSCULAR VOLUME 84 fL (79-100); MONO % 7 % (0-9); NEUT % 82 % (31-73); PLATELET COUNT 171 x10^3/uL (140-400); RED BLOOD COUNT 4.47 x10^6/uL (3.50-5.40); RED CELL DISTRIBUTION WIDTH 13.1 % (11.5-14.5); WHITE BLOOD COUNT 15.8 x10^3/uL (4.0-11.0)
[2016-10-26 05:15] LABS: CALCIUM 8.3 mg/dL (8.5-10.1); CREATININE 0.7 mg/dL (0.6-1.0); GFR 93.6; POTASSIUM 3.6 mmol/L (3.5-5.1)
[2016-10-26] MEDS: LEVOTHYROXINE 50 MCG TABLET PO SCH (06:35)
[2016-10-26 07:00] VITALS: BP 119/76
--- NOTE | 2016-10-26 07:20 | RAD ---
Indication: Pneumothorax. Time of exam 0616 hours. Correlation is made with prior study from 1 day earlier. The heart size is stable. Left basilar parenchymal density and left pleural effusion is unchanged. No significant pneumothorax is detected. Right lung is clear. Impression: Stable chest since exam one day earlier.
[2016-10-26] MEDS: SENNOSIDES/DOCUSATE 8.6/50MG TABLET. PO SCH ×2 (07:52→20:57)
[2016-10-26] MEDS: LEVETIRACETAM 500 MG TABLET PO SCH ×2 (07:53→20:57)
[2016-10-26] MEDS: POLYETHYLENE GLYCOL 3350 17 GM PACKET. PO SCH (07:53)
[2016-10-26] MEDS: GUAIFENESIN ER 600 MG TABLET.ER PO SCH ×2 (07:53→21:01)
[2016-10-26] MEDS: NICOTINE 21MG PATCH. TD SCH (07:53)
[2016-10-26] MEDS: BUDESONIDE 0.5 MG/2 ML NEBU NEB SCH ×2 (08:07→20:02)
[2016-10-26 08:15] LABS: % EOS 3 % (0-5); PLT ESTIMATE ADEQUATE (ADEQUATE)
[2016-10-26 11:00] VITALS: BP 115/72
--- NOTE | 2016-10-26 12:53 | PDOC ---
PULMONARY PROGRESS NOTES Subjective no soa post -op pain chest tube out Vitals Vital Signs Date Time Temp Pulse Resp B/P Pulse Ox O2 Delivery O2 Flow Rate FiO2 10/26/16 11:00 98.9 112 20 115/72 92 Nasal Cannula 2.0 98.9 General: Alert, No acute distress Lungs: Other (decrease bs ) Cardiovascular: S1 Abdomen: Soft Neuro Exam: Alert Extremities: No Edema Skin: Warm Labs Laboratory Tests Test 10/25/16 05:25 10/26/16 03:30 White Blood Count 17.8x10^3/uL (4.0-11.0) 15.8x10^3/uL (4.0-11.0) Red Blood Count 4.94x10^6/uL (3.50-5.40) 4.47x10^6/uL (3.50-5.40) Hemoglobin 13.7g/dL (12.0-15.5) 12.7g/dL (12.0-15.5) Hematocrit 40.7% (36.0-47.0) 37.8% (36.0-47.0) Mean Corpuscular Volume 82fL (79-100) 84fL (79-100) Mean Corpuscular Hemoglobin 28pg (25-35) 28pg (25-35) Mean Corpuscular Hemoglobin Concent 34g/dL (31-37) 34g/dL (31-37) Red Cell Distribution Width 13.2% (11.5-14.5) 13.1% (11.5-14.5) Platelet Count 195x10^3/uL (140-400) 171x10^3/uL (140-400) Sodium Level 134mmol/L (136-145) 135mmol/L (136-145) Potassium Level 3.8mmol/L (3.5-5.1) 3.6mmol/L (3.5-5.1) Chloride Level 99mmol/L (98-107) 99mmol/L (98-107) Carbon Dioxide Level 29mmol/L (21-32) 31mmol/L (21-32) Anion Gap 6 (6-14) 5 (6-14) Blood Urea Nitrogen 10mg/dL (7-20) 10mg/dL (7-20) Creatinine 0.8mg/dL (0.6-1.0) 0.7mg/dL (0.6-1.0) Estimated GFR (Cockcroft-Gault) 80.3 93.6 BUN/Creatinine Ratio 13 (6-20) Glucose Level 117mg/dL (70-99) 107mg/dL (70-99) Calcium Level 8.5mg/dL (8.5-10.1) 8.3mg/dL (8.5-10.1) Total Bilirubin 0.7mg/dL (0.2-1.0) Aspartate Amino Transf (AST/SGOT) 13U/L (15-37) Alanine Aminotransferase (ALT/SGPT) 31U/L (14-59) Alkaline Phosphatase 82U/L (46-116) Total Protein 6.3g/dL (6.4-8.2) Albumin 2.3g/dL (3.4-5.0) Albumin/Globulin Ratio 0.6 (1.0-1.7) Neutrophils (%) (Auto) 82% (31-73) Lymphocytes (%) (Auto) 8% (24-48) Monocytes (%) (Auto) 7% (0-9) Eosinophils (%) (Auto) 2% (0-3) Basophils (%) (Auto) 1% (0-3) Neutrophils # (Auto) 13.0x10^3uL (1.8-7.7) Lymphocytes # (Auto) 1.3x10^3/uL (1.0-4.8) Monocytes # (Auto) 1.1x10^3/uL (0.0-1.1) Eosinophils # (Auto) 0.3x10^3/uL (0.0-0.7) Basophils # (Auto) 0.1x10^3/uL (0.0-0.2) Segmented Neutrophils % 83% (35-66) Lymphocytes % 10% (24-48) Monocytes % 4% (0-10) Eosinophils % 3% (0-5) Platelet Estimate Adequate (ADEQUATE) Laboratory Tests Test 10/26/16 03:30 White Blood Count 15.8x10^3/uL (4.0-11.0) Red Blood Count 4.47x10^6/uL (3.50-5.40) Hemoglobin 12.7g/dL (12.0-15.5) Hematocrit 37.8% (36.0-47.0) Mean Corpuscular Volume 84fL (79-100) Mean Corpuscular Hemoglobin 28pg (25-35) Mean Corpuscular Hemoglobin Concent 34g/dL (31-37) Red Cell Distribution Width 13.1% (11.5-14.5) Platelet Count 171x10^3/uL (140-400) Neutrophils (%) (Auto) 82% (31-73) Lymphocytes (%) (Auto) 8% (24-48) Monocytes (%) (Auto) 7% (0-9) Eosinophils (%) (Auto) 2% (0-3) Basophils (%) (Auto) 1% (0-3) Neutrophils # (Auto) 13.0x10^3uL (1.8-7.7) Lymphocytes # (Auto) 1.3x10^3/uL (1.0-4.8) Monocytes # (Auto) 1.1x10^3/uL (0.0-1.1) Eosinophils # (Auto) 0.3x10^3/uL (0.0-0.7) Basophils # (Auto) 0.1x10^3/uL (0.0-0.2) Segmented Neutrophils % 83% (35-66) Lymphocytes % 10% (24-48) Monocytes % 4% (0-10) Eosinophils % 3% (0-5) Platelet Estimate Adequate (ADEQUATE) Sodium Level 135mmol/L (136-145) Potassium Level 3.6mmol/L (3.5-5.1) Chloride Level 99mmol/L (98-107) Carbon Dioxide Level 31mmol/L (21-32) Anion Gap 5 (6-14) Blood Urea Nitrogen 10mg/dL (7-20) Creatinine 0.7mg/dL (0.6-1.0) Estimated GFR (Cockcroft-Gault) 93.6 Glucose Level 107mg/dL (70-99) Calcium Level 8.3mg/dL (8.5-10.1) Medications Active Scripts Medications Dose Route/Sig Days Date Category NICODERM CQ 21mg (Nicotine) 1 Each Patch.td24 1 Patch TP DAILY 10/21/16 Reported Singulair Tablet (Montelukast Sodium) 10 Mg Tablet 10 Mg PO HS 10/21/16 Reported Hydromorphone 1 Mg/Ml Syringe (Hydromorphone Hcl) 1 Mg/1 Ml Disp.syrin 1 Mg IJ PRN Q2HRS PRN 10/21/16 Reported Hydrocodone-Apap 5-325 (Hydrocodone Bit/Acetaminophen) 1 Each Tablet 1 Tab PO PRN Q4HRS PRN 10/21/16 Reported Mucinex (Guaifenesin) 600 Mg Tablet.er 1 Tab PO BID 10/21/16 Reported Budesonide 0.5 Mg/2 Ml Ampul.neb 1 Vial NEB BID 10/21/16 Reported Albuterol Sulfate Conc Neb Soln (Albuterol Sulfate) 2.5 Mg/0.5 Ml Vial.neb 2.5 Mg NEB 10/21/16 Reported Impression . 1. Acute Hypoxemic Respiratory Failure due to PTX 2. Left Pneumothorax. s/p left VAT, wedge resection/ pleurodesis 10/23 3. Left Apical Infiltrate/Right LL persistent atelectasis 4. Tobacco Dependency 5. Seizure DO 6. Anxiety, PTSD, Depression 7. Mild PCM Plan . 1. s/p VATS/ No definite PTX seen today, chest tube out. 2. Does not do well with IS 3. Continue Bronchodilatory therapy 5. Pain control 6. Aggressive IS 7. Needs f/u CXR as OP to see improvement in RLL atelectasis RIN MARTEL MD Oct 26, 2016 12:52
[2016-10-26] MEDS: ENOXAPARIN 40 MG/0.4 ML DISP.SYRIN. SQ SCH (13:09)
--- NOTE | 2016-10-26 13:57 | PDOC ---
PROGRESS NOTES Assessment Assessment Seizure Pneumothorax. Bilateral pleural effusion. Smoking, quit 8 days ago ADHD Anxiety RECOMMENDATIONS/PLAN: Continue Keppra 500 mg bid. Treat medical diseases. OT/PT. FU with Dr. Peters in [facility] in 1 month. EEG on 10/22: No seizure activity. 6-8 Hz/sec. PAST MEDICAL AND SURGICAL HISTORY: Please see H&P ALLERGY: PCN Naproxen MEDICATIONS: Refer to MAR REVIEW OF SYSTEMS: Constitutional: No cachexia. Head: No recent traumatic brain or head injury. Skin: No edema, or rash. Ear: No infection, tinnitus. Eyes: No vision loss, or diplopia. Nose: No bleeding or purulent discharges. Hearing: No hearing decrease. Neck: No recent injury. Breast: No history of cancer, masses, or discharges. Cardiac: No MT, arrhythmia Pulmonary: Smoking GI: No GI Ulcer, GI bleeding Urinary/genital: UTI. Endocrine: No cousin face, craniofacial dysmorphism, polydactyly. Skeletomuscular: No muscular atrophy, deformity. Neurological: see HP. Psychiatric: Denies drug use/abuse. Otherwise, not [id number] review of systems. PHYSICAL EXAMINATION: General appearance is in subacute distress. HEENT: Normocephalic and nontraumatic. Eyes, nose, ears, and throat are unremarkable. Hearing decrease. Neck is supple. No lymphadenopathy. No bruits are heard over the carotid artery. No Crepitus. Cardiovascular: S1, S2, regular rate and rhythm. Pulmonary: decreased to auscultation bilaterally. Abdomen: Bowel sounds are positive. Abdomen is soft, nontender, and nondistended. Extremities: No rash, lesions, or edema. No restriction of range of motion NEUROLOGICAL EXAMINATION: Alert. Sitting in chair. Oriented to time, place and person. PERRL. EOMI. CN: no focal findings. Muscle tone: within normal. Muscle strength: 5- DTR: 2 Plantar reflex: Flexor response bilaterally Gait: not examined in chair. Sensory exam: no abnormal findings. No cerebellar signs elicited. F-T-N test accurate. Objective Objective Vital Signs Date Time Temp Pulse Resp B/P Pulse Ox O2 Delivery O2 Flow Rate FiO2 10/26/16 13:09 18 92 Nasal Cannula 2.0 10/26/16 11:00 98.9 112 115/72 98.9 Intake and Output 10/26/16 07:00 Intake Total 980 ml Output Total 2250 ml Balance -1270 ml Intake Oral 980 ml Output Urine Total 2250 ml Vitals Signs Vitals VS - Last 72 Hours, by Label Date Time Temp Pulse Resp B/P Pulse Ox O2 Delivery O2 Flow Rate FiO2 10/26/16 13:09 18 92 Nasal Cannula 2.0 10/26/16 11:00 98.9 112 20 115/72 92 Nasal Cannula 2.0 98.9 10/26/16 08:56 18 94 Nasal Cannula 3.0 10/26/16 08:08 95 Nasal Cannula 3.0 10/26/16 07:53 16 90 Nasal Cannula 3.0 10/26/16 07:50 Nasal Cannula 3.0 10/26/16 07:10 20 90 Nasal Cannula 3.0 10/26/16 07:00 98.1 117 20 119/76 91 Nasal Cannula 2.0 98.1 10/26/16 06:38 18 90 Nasal Cannula 3.0 10/26/16 03:33 20 90 Nasal Cannula 2.0 10/26/16 03:27 99.0 114 20 116/71 89 Nasal Cannula 2.0 99.0 10/26/16 00:48 22 90 Nasal Cannula 2.0 10/25/16 23:22 98.8 108 18 104/67 90 Nasal Cannula 2.0 98.8 10/25/16 21:48 20 91 Nasal Cannula 1.0 10/25/16 20:00 Nasal Cannula 1.0 10/25/16 19:50 98.2 120 20 120/86 89 Nasal Cannula 1.0 98.2 10/25/16 19:42 20 92 Nasal Cannula 1.0 10/25/16 19:20 16 92 Nasal Cannula 1.0 10/25/16 18:17 20 92 Nasal Cannula 1.0 10/25/16 16:46 18 86 Nasal Cannula 5.0 10/25/16 16:19 Nasal Cannula 5.0 10/25/16 15:31 98.2 120 16 119/81 86 Room Air 98.2 10/25/16 14:19 92 Room Air 10/25/16 13:18 16 86 Nasal Cannula 5.0 10/25/16 11:28 20 86 Nasal Cannula 5.0 10/25/16 10:46 98.1 114 16 126/52 86 Nasal Cannula 98.1 10/25/16 08:59 18 92 Nasal Cannula 5.0 10/25/16 08:57 18 92 Nasal Cannula 5.0 10/25/16 08:25 92 Nasal Cannula 5.0 10/25/16 08:24 92 Nasal Cannula 5.0 10/25/16 08:00 Nasal Cannula 5.0 10/25/16 07:19 98.2 112 16 128/73 91 Nasal Cannula 98.2 Laboratory Laboratory Laboratory Tests Test 10/26/16 03:30 White Blood Count 15.8x10^3/uL (4.0-11.0) Red Blood Count 4.47x10^6/uL (3.50-5.40) Hemoglobin 12.7g/dL (12.0-15.5) Hematocrit 37.8% (36.0-47.0) Mean Corpuscular Volume 84fL (79-100) Mean Corpuscular Hemoglobin 28pg (25-35) Mean Corpuscular Hemoglobin Concent 34g/dL (31-37) Red Cell Distribution Width 13.1% (11.5-14.5) Platelet Count 171x10^3/uL (140-400) Neutrophils (%) (Auto) 82% (31-73) Lymphocytes (%) (Auto) 8% (24-48) Monocytes (%) (Auto) 7% (0-9) Eosinophils (%) (Auto) 2% (0-3) Basophils (%) (Auto) 1% (0-3) Neutrophils # (Auto) 13.0x10^3uL (1.8-7.7) Lymphocytes # (Auto) 1.3x10^3/uL (1.0-4.8) Monocytes # (Auto) 1.1x10^3/uL (0.0-1.1) Eosinophils # (Auto) 0.3x10^3/uL (0.0-0.7) Basophils # (Auto) 0.1x10^3/uL (0.0-0.2) Segmented Neutrophils % 83% (35-66) Lymphocytes % 10% (24-48) Monocytes % 4% (0-10) Eosinophils % 3% (0-5) Platelet Estimate Adequate (ADEQUATE) Sodium Level 135mmol/L (136-145) Potassium Level 3.6mmol/L (3.5-5.1) Chloride Level 99mmol/L (98-107) Carbon Dioxide Level 31mmol/L (21-32) Anion Gap 5 (6-14) Blood Urea Nitrogen 10mg/dL (7-20) Creatinine 0.7mg/dL (0.6-1.0) Estimated GFR (Cockcroft-Gault) 93.6 Glucose Level 107mg/dL (70-99) Calcium Level 8.3mg/dL (8.5-10.1) Medication Medications Current Medications Acetaminophen/ Hydrocodone Bitart (Lortab 5/325) 1 tab PRN Q4HRS PRN PO MILD TO MOD PAIN; Start 10/25/16 at 20:00 Acetaminophen/ Hydrocodone Bitart (Lortab 5/325) 2 tab PRN Q4HRS PRN PO SEVERE PAIN Last administered on 10/26/16 13:09; Start 10/25/16 at 20:00 Diphenhydramine HCl (Benadryl) 25 mg PRN Q4HRS PRN PO ITCHING Last administered on 10/25/16 20:42; Start 10/25/16 at 20:00 Enoxaparin Sodium (Lovenox 40mg Syringe) 40 mg Q24H SQ Last administered on 13:09; Start 10/25/16 at 17:00 Polyethylene Glycol (miraLAX PACKET) 17 gm DAILY PO Last administered on 07:53; Start 10/25/16 at 15:00 Senna/Docusate Sodium (Senna Plus) 2 tab BID PO Last administered on 10/26/16 07:52; Start 10/25/16 at 21:00 Comment Review of Relevant I have reviewed the following items bry (where applicable) has been applied. ALIYAH MADRID MD Oct 26, 2016 13:57
--- NOTE | 2016-10-26 14:28 | PDOC ---
Progress Note Subjective Subjective Chest tube was removed yesterday evening, and left lung remains fully expanded. She still requires 2-3 L nasal cannula. High level of anxiety and also showing some signs of depression. No BM yet but feels that she needs to go. 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 3, no focal neurologic deficit SKIN: No rash IV: ok Labs Lab Laboratory Tests Test 10/26/16 03:30 White Blood Count 15.8x10^3/uL (4.0-11.0) Red Blood Count 4.47x10^6/uL (3.50-5.40) Hemoglobin 12.7g/dL (12.0-15.5) Hematocrit 37.8% (36.0-47.0) Mean Corpuscular Volume 84fL (79-100) Mean Corpuscular Hemoglobin 28pg (25-35) Mean Corpuscular Hemoglobin Concent 34g/dL (31-37) Red Cell Distribution Width 13.1% (11.5-14.5) Platelet Count 171x10^3/uL (140-400) Neutrophils (%) (Auto) 82% (31-73) Lymphocytes (%) (Auto) 8% (24-48) Monocytes (%) (Auto) 7% (0-9) Eosinophils (%) (Auto) 2% (0-3) Basophils (%) (Auto) 1% (0-3) Neutrophils # (Auto) 13.0x10^3uL (1.8-7.7) Lymphocytes # (Auto) 1.3x10^3/uL (1.0-4.8) Monocytes # (Auto) 1.1x10^3/uL (0.0-1.1) Eosinophils # (Auto) 0.3x10^3/uL (0.0-0.7) Basophils # (Auto) 0.1x10^3/uL (0.0-0.2) Segmented Neutrophils % 83% (35-66) Lymphocytes % 10% (24-48) Monocytes % 4% (0-10) Eosinophils % 3% (0-5) Platelet Estimate Adequate (ADEQUATE) Sodium Level 135mmol/L (136-145) Potassium Level 3.6mmol/L (3.5-5.1) Chloride Level 99mmol/L (98-107) Carbon Dioxide Level 31mmol/L (21-32) Anion Gap 5 (6-14) Blood Urea Nitrogen 10mg/dL (7-20) Creatinine 0.7mg/dL (0.6-1.0) Estimated GFR (Cockcroft-Gault) 93.6 Glucose Level 107mg/dL (70-99) Calcium Level 8.3mg/dL (8.5-10.1) Objective Assessment POD#3 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 Chest tube is out and lung is fully expanded. Still requires 2-3 L nasal cannula. Main issue appears to be anxiety Plan Plan of Care Pulmonary toilet, ambulation and wean O2 Can DC home from surgical standpoint once off oxygen Bowel regimen She can follow-up with me in 3 weeks with chest x-ray beforehand LUDWIG HOPSON MD Oct 26, 2016 14:28
[2016-10-26 15:00] VITALS: BP 118/80
[2016-10-26 19:40] VITALS: BP 126/82
[2016-10-26] MEDS: ALBUTEROL SULFATE 2.5 MG/3 ML NEBU. NEB PRN (20:03)
[2016-10-26] MEDS: MONTELUKAST SODIUM 10 MG TABLET. PO SCH (20:57)
[2016-10-26 23:35] VITALS: BP 129/80
[2016-10-27] MEDS: HYDROCODONE/APAP 5/325MG TABLET. PO PRN ×3 (01:34→15:14)
[2016-10-27 03:45] VITALS: BP 99/68
--- NOTE | 2016-10-27 06:28 | PN ---
DATE: 10/26/2016 SUBJECTIVE: The patient is sitting comfortably in his chair, in no apparent distress. She continued to have cough and desaturates, especially on exertion. Unfortunately, she has no payer source and she cannot be qualified for home oxygen and therefore, we would continue working with her for at least another day here to hopefully improve her oxygenation, can be discharged home tomorrow. PHYSICAL EXAMINATION: GENERAL: When I examined her this afternoon, she looked pale, but no jaundice, cyanosis or thyromegaly. No jugular venous distention. No limb edema. VITAL SIGNS: Her heart rate was 112, blood pressure was 115/72, temperature was 98.9, respiratory rate 20, and oxygen saturation was 92% on 2 liters of oxygen by nasal cannula. HEAD, EYES, EARS, NOSE AND THROAT: Showed normocephalic, atraumatic. NECK: Supple. HEART: Showed normal first and second heart sounds with no gallop, rub or murmur. CHEST: Shows central trachea, equal bilateral chest expansion, air entry. No crepitation or rhonchi. ABDOMEN: Distended, soft, nontender. NEUROLOGIC: She was awake, alert, responding appropriately. Cranial nerves intact. She ambulates without assistance or assistive devices. Her intake over the last 24 hours was 1000, output was 2250. LABORATORY DATA: Her lab work this morning showed a white cell count of 15,800, hemoglobin 13, hematocrit 38, MCV 84, and platelet count 271,000. Her chemistry showed a serum sodium 135, potassium 3.6, chloride 99, bicarbonate 31, anion gap of 5, BUN 10, creatinine 0.7, estimated GFR was 94 mL per minute. Her glucose was 107, calcium was 8.3. ASSESSMENT: Acute hypoxic respiratory failure secondary to spontaneous pneumothorax. The patient had had a chest tube done in [facility] and after removal, she has recurrence of her pneumothorax. She was transferred to [facility], underwent left video-assisted thoracoscopic surgery with upper lobe wedge resection x 3, talc pleurodesis, and pleural adhesiolysis. Her chest tube was removed yesterday. Other medical problems include bronchial asthma, possible ____ bronchitis/CBD. She has also hypothyroidism, ADHD, posttraumatic stress disorder as well as anxiety. She has also seizure disorder for which she was followed by Dr. Peters and was on Keppra that she continued on her own. PLAN: My plan is to keep her 1 more day and hopefully tomorrow her oxygenation would be better after aggressive exercise, physical therapy, and incentive spirometry. NICHOLAS DEJESUS MD DR: KIN/analy JOB#: [id number] / [id number]
[2016-10-27] MEDS: LEVOTHYROXINE 50 MCG TABLET PO SCH (06:37)
[2016-10-27] MEDS: BUDESONIDE 0.5 MG/2 ML NEBU NEB SCH (07:36)
[2016-10-27 07:50] VITALS: BP 121/83
[2016-10-27] MEDS: POLYETHYLENE GLYCOL 3350 17 GM PACKET. PO SCH (08:25)
[2016-10-27] MEDS: LEVETIRACETAM 500 MG TABLET PO SCH (08:25)
[2016-10-27] MEDS: SENNOSIDES/DOCUSATE 8.6/50MG TABLET. PO SCH (08:25)
[2016-10-27] MEDS: GUAIFENESIN ER 600 MG TABLET.ER PO SCH (08:25)
[2016-10-27] MEDS: NICOTINE 21MG PATCH. TD SCH (08:25)
--- NOTE | 2016-10-27 08:59 | RAD ---
EXAM: Chest, single view. HISTORY: Pneumothorax. COMPARISON: 10/26/2016. FINDINGS: A frontal view of the chest is obtained. There is stable lucency involving the left greater than right lung apices likely due to biapical subpleural bleb formation. The possibility of a tiny residual left apical pneumothorax compared to the CT dated 10/22/2016 is not excluded. There is increased right lower lobe infiltrate or atelectasis and stable peripheral and lower lobe predominant left lung infiltrate or atelectasis. There are small bilateral pleural effusions. The heart is normal in size. IMPRESSION: 1. Stable biapical lucency likely due to subpleural bleb formation. The possibility of a tiny stable residual left apical pneumothorax is not excluded. 2. Increased right lower lobe atelectasis or infiltrate. 3. Stable peripheral and lower lobe predominant left lung atelectasis or infiltrate and small pleural effusions.
[2016-10-27 10:40] VITALS: BP 115/79
--- NOTE | 2016-10-27 14:10 | PDOC ---
Progress Note Subjective Subjective Doing much better today. She is on room air and was able to ambulate without O2. She did not desaturate after ambulating. ROS ROS No nausea No vomiting No pain No rash Vital Sign Vital Signs Vital Signs Date Time Temp Pulse Resp B/P Pulse Ox O2 Delivery O2 Flow Rate FiO2 10/27/16 11:03 20 Nasal Cannula 2.0 10/27/16 10:40 98.1 106 115/79 95 98.1 Physical Exam PHYSICAL EXAM GENERAL: NAD, Alert HEENT: PERRL, OC/OP NECK: Supple, no JVD, no LN LUNGS: Clear HEART: S1S2, no gallop, no murmur ABD: Soft, NT, no organomegaly, no rebound EXT: No edema, no cyanosis TIMBER DEADENER: Alert, oriented x 3, no focal neurologic deficit SKIN: No rash IV: ok Objective Assessment POD#4 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 Doing very well. Now on room air. No oxygen supplementation needed when ambulating Plan Plan of Care DC home today Follow-up with me in 3 weeks with chest x-ray beforehand (both appointments have been arranged - November 16 2016, at 1pm) LUDWIG HOPSON MD Oct 27, 2016 14:10
[2016-10-27] MEDS ORDERED: LISD20CA3 PO (14:17)
[2016-10-27] MEDS ORDERED: LEVE500T56 PO (14:17)
[2016-10-27] MEDS ORDERED: LEVO50TA5 PO (14:17)
[2016-10-27 14:43] VITALS: BP 123/79
--- NOTE | 2016-10-28 06:10 | DS ---
DATE OF DISCHARGE: 10/27/2016 SUBJECTIVE: The patient is a 36-year-old female patient who was originally admitted to [facility] with worsening shortness of breath and was found to have spontaneous pneumothorax, had a chest tube placed and after the lung was completely expanded for about 48 hours, her chest tube was removed; however, repeat chest x-ray showed that she has recurrence of the pneumothorax and therefore, the patient was transferred to [facility] to consult the cardiothoracic surgeon and she was in fact seen by the pigment weigher as well as the cardiothoracic surgeon and she underwent left-sided video-assisted thoracoscopic surgery, upper lobe wedge resection x 3 and talc pleurodesis and pleural adhesiolysis. Her chest tube was removed yesterday and she continued to saturate; however, today she has been up and about walking and she is keeping her oxygen saturation without oxygen at 91-92% and decision was made to discharge her home to follow with her primary care physician and to continue with all other medication. PHYSICAL EXAMINATION: GENERAL: When I saw her this afternoon, she looked well and was clearly in no apparent respiratory distress. She was slightly pale, but no jaundice, cyanosis or thyromegaly. No jugular venous distention. No limb edema. VITAL SIGNS: Her heart rate was 106, blood pressure was 115/79, temperature was 98, respiratory rate was 20, and oxygen saturation was 92% on room air. HEAD, EYES, EARS, NOSE AND THROAT: Showed normocephalic, atraumatic. NECK: Supple. HEART: Showed normal first and second heart sounds with no gallop, rub or murmur. CHEST: Clear to auscultation. No crepitation or rhonchi. ABDOMEN: Distended, soft, nontender. No guarding or rigidity. No organomegaly. Hernial orifices intact. Bowel sounds normal. NEUROLOGIC: She was awake, alert, responding appropriately. Cranial nerves intact. She moves extremities without difficulty. She ambulates without assistance or assistive devices. LABORATORY DATA: Her white cell count was 15,800, hemoglobin 12.7, hematocrit 37.8, MCV 84 and platelet count of 171,000 with normal manual differential. Her serum sodium was 135, potassium 3.6, chloride 99, bicarbonate of 29, anion gap of 5, BUN of 10, creatinine 0.7, estimated GFR was 94 mL per minute. Her glucose 107, calcium was 8.3. Total bilirubin, AST, ALT, alkaline phosphatase were normal. Total protein was 6.3, albumin 2.7. Her TSH was 3.969. Her prothrombin time was 13.4, INR 1.1, APTT was 32. Her HIV 1 antibody was nonreactive. MEDICATIONS: She was discharged home to continue on following medications: Keppra 500 mg twice a day, levothyroxine sodium 50 mcg once a day, Vyvanse 20 mg once a day, she should continue also on albuterol sulfate by nebulizer every 4 hours as needed, Mucinex 600 mg twice a day, hydrocodone/APAP 5/325 one tablet every 4 hours as needed, Singulair 10 mg once a day and NicoDerm CQ 21 mg transdermal patch once a day. FINAL DISCHARGE DIAGNOSES: 1. Acute hypoxic respiratory failure secondary to spontaneous pneumothorax, treated with a chest tube at [facility]. 2. She has recurrent spontaneous pneumothorax for which she underwent left video-assisted thorascopic surgery with upper lobe wedge resection x 3, talc pleurodesis and pleural adhesiolysis. Other medical problems include chronic obstructive pulmonary disease. 3. Hypothyroidism. 4. ADHD. 5. Posttraumatic stress disorder, seizure disorder for which she is on Keppra and anxiety disorder. NICHOLAS DEJESUS MD DR: KIN/analy JOB#: [id number] / [id number]
== END 2016-10-27 19:11 | disposition home or self-care (01) | DRG 166 ==
LOC: 1 WEST ICU 12:52 → 2 NORTH 10-23 16:40
PROVIDERS: ADMIT Internal Medicine; ATTEND Internal Medicine
PROC: 0W9B30Z Drainage of Left Pleural Cavity with Drainage Device, Percutaneous Approach (ICD-10-PCS; 2016-10-23)
PROC: 0BNP4ZZ Release Left Pleura, Percutaneous Endoscopic Approach (ICD-10-PCS; 2016-10-23)
PROC: 3E0L3GC Introduction of Other Therapeutic Substance into Pleural Cavity, Percutaneous Approach (ICD-10-PCS; 2016-10-23)
PROC: 0BBG4ZX Excision of Left Upper Lung Lobe, Percutaneous Endoscopic Approach, Diagnostic (ICD-10-PCS; principal; 2016-10-23 13:00)
DX: J93.83 Other pneumothorax (principal); J96.01 Acute respiratory failure with hypoxia; E44.1 Mild protein-calorie malnutrition; J90 Pleural effusion, not elsewhere classified; J98.11 Atelectasis; D72.829 Elevated white blood cell count, unspecified; E03.9 Hypothyroidism, unspecified; F90.9 Attention-deficit hyperactivity disorder, unspecified type; F17.210 Nicotine dependence, cigarettes, uncomplicated; F32.9 Major depressive disorder, single episode, unspecified; F41.1 Generalized anxiety disorder; F43.10 Post-traumatic stress disorder, unspecified; G40.409 Other generalized epilepsy and epileptic syndromes, not intractable, without status epilepticus; J45.909 Unspecified asthma, uncomplicated; Z88.0 Allergy status to penicillin; Z88.8 Allergy status to other drugs, medicaments and biological substances; Z82.0 Family history of epilepsy and other diseases of the nervous system; Z82.49 Family history of ischemic heart disease and other diseases of the circulatory system; Z83.3 Family history of diabetes mellitus; Z85.41 Personal history of malignant neoplasm of cervix uteri; Z68.31 Body mass index [BMI] 31.0-31.9, adult
CPT/HCPCS: 32557; 36415; 71010; 71250; 80048; 80053; 82103; 84443; 85007; 85027; 85610; 85730; 86703; 86850; 86900; 86901; 87641; 94250; 94640; 94760; 95816; 99406; A4215; C1729; J1100; J1170; J1650; J2250; J2270; J2405; J2704; J2710; J3010; J3370; J3490; Q0163

== ENCOUNTER → 2016-11-16 | Outpatient (CLI) | payer SELFPAY ==
[2016-10-27 14:43] VITALS: BP 123/79
[~2016-11-16] MED LIST: ALBU2.5V14 NEB; BUDE0.5A NEB; GUAI600T38 PO; HYDR-2666 PO; LEVE500T56 PO; LEVO50TA5 PO; LISD20CA3 PO; MONT10TA6 PO; NICO1PAT21 TP; [UNRECOGNIZED DRUG - CODE] IJ
--- NOTE | 2016-11-16 13:43 | RAD ---
Chest, 2 views, 11/16/2016: History: Postop evaluation Comparison is made to a study from 10/27/2016. The heart size and pulmonary vascularity are normal. There is mild volume loss on the left on a postsurgical basis. There are numerous surgical sutures and linear scarring laterally in the left lung. There is a questionable tiny air-fluid level in the left chest laterally raising the possibility of a tiny residual loculated hydropneumothorax. No pneumothorax of significant size is seen. Previously seen moderate left basilar opacities have largely cleared. There is blunting of the costophrenic angles on the left compatible with scarring versus a tiny amount of pleural fluid. The right chest is clear. IMPRESSION: 1. Considerable interval clearing of the left chest as described above. 2. Mild volume loss and pleural/parenchymal scarring on the left.
== END | disposition home or self-care (01) ==
LOC: LAB 12:59
PROVIDERS: ATTEND Thoracic Surgery (Cardiothoracic Vascular Surgery)
DX: Z98.890 Other specified postprocedural states (principal)
CPT/HCPCS: 71020